=== PATIENT | male | born 1940 | race Caucasian/White ===

== ENCOUNTER 2022-02-18 02:42 | Inpatient (IN) | payer MEDICARE, SELFPAY ==
[2022-02-18] VITALS (8 sets, daily range): BP systolic 114–156; BP diastolic 51–84; PULSE 89–143; RESP 18–20; TEMP 37.2; O2SAT 94–100; BMI 25.1; BMI 28.0
--- NOTE | 2022-02-18 | ECG_ITS ---
Test Reason : AFIB Blood Pressure : / mmHG Vent. Rate : 132 BPM Atrial Rate : 000 BPM P-R Int : 000 ms QRS Dur : 098 ms QT Int : 332 ms P-R-T Axes : 000 093 -28 degrees QTc Int : 491 ms Atrial fibrillation with rapid ventricular response Rightward axis Abnormal ECG No previous ECGs available Referred By: Generic ED Physician Electronically Signed By:CASTILLO CORONEL
--- NOTE | ~2022-02-18 | XR_ITS ---
EXAMINATION: XR CHEST CLINICAL INFORMATION: Leukocytosis COMPARISON: None TECHNIQUE: Frontal view of the chest was obtained. FINDINGS: Lungs clear. Heart and pulmonary vessels are normal. There is advanced degenerative change in the left shoulder joint. XR/XR chest 1V IMPRESSION: No acute findings.
--- NOTE | ~2022-02-18 | CT_ITS ---
EXAMINATION: CT ABDOMEN AND PELVIS WITHOUT CONTRAST CLINICAL INFORMATION: Abdominal distention. Large right groin mass. COMPARISON: None TECHNIQUE: Multidetector volumetric imaging was performed from the superior aspect of the liver through the pubic symphysis. Sagittal and coronal reformatted images were obtained on the technologist's workstation. This CT examination was performed using dose optimization techniques as appropriate, variously including the following: *Automated exposure control *Adjustment of mA and/or kV according to patient size (this includes techniques or standardized protocols for targeted exams where dose is matched to indication/reason for exam; i.e. extremities or head) *Use of iterative reconstruction technique DLP: 872 mGy-cm FINDINGS: LUNG BASES: Basilar atelectasis. The visualized cardiac structures are unremarkable. LIVER, GALLBLADDER, AND BILIARY TREE: The liver is normal in size, shape, and attenuation. Multiple hypoattenuating lesions are seen in the liver, the largest of which are consistent with cysts. No biliary ductal dilatation.. The gallbladder is unremarkable with no evidence of radiopaque gallstones, gallbladder wall thickening, or obvious pericholecystic inflammatory changes. PANCREAS: Mild atrophy with no focal abnormality. SPLEEN: Unremarkable. ADRENAL GLANDS: Unremarkable. KIDNEYS AND URETERS: The kidneys are normal in size, shape, and attenuation. No hydronephrosis, hydroureter, or calculi seen. No perinephric stranding. BLADDER: Distended with no gross abnormality. GASTROINTESTINAL TRACT: The stomach is unremarkable. There is mild gaseous distention of the small bowel throughout much of its course, leading up to the entry into a large right inguinal hernia. The bowel within the hernia sac is more normal in caliber, although there is wall thickening seen throughout significant portions of the small bowel. The cecum is also partially positioned within the hernia sac. Gas and stool throughout portions of the colon. Diverticulosis of the distal colon without diverticulitis. There is no free air. Small volume of free fluid in the pelvis with significant inflammatory changes and free fluid within the large hernia sac. ABDOMINAL WALL: There is a large right inguinal hernia containing significant portions of distal small bowel where there is inflammation and bowel wall thickening. LYMPH NODES: Normal. VASCULAR: Normal caliber aorta with moderate atherosclerotic calcification. PELVIC VISCERA: The prostate and seminal vesicles are unremarkable. OSSEOUS STRUCTURES: No acute or suspicious osseous abnormality. Degenerative changes throughout the spine. Degenerative changes of both hips. CT/CT abdomen pelvis wo con IMPRESSION: Large right inguinal hernia containing distal small bowel. Wall thickening of the bowel within the hernia sac with significant inflammation and free fluid, concerning for strangulation/incarceration. The small bowel proximal to entering the hernia is dilated, consistent with an associated obstruction. This critical result was discussed with Diomedes Corona MD by telephone at 02/18/2022 7:12 AM and it was ascertained that the content and urgency of the report was understood at the time of direct communication.
[2022-02-18 03:35] LABS: Basophils Percent Auto 0.2 % (0-2); Hematocrit 44.5 % (42.0-52.0); Hemoglobin 15.5 g/dl (14.0-18.0); Imm Gran Abs Auto 0.19 X10*3/uL (0.00-0.03); Imm Gran Pct Auto 0.8 % (0.0-0.4); Lymphocytes Percent Auto 4.4 % (20-40); MANUAL DIFF FLAG NO; Mean Corpuscular HGB Conc 34.8 g/dl (31.0-36.0); Mean Corpuscular Hemoglobin 30.5 pg (27.0-33.0); Mean Corpuscular Volume 87.6 fL (80.0-98.0); Monocytes Absolute Auto 0.8 X10*3/uL (0.1-1.2); Monocytes Percent Auto 3.3 % (2-11); Neutrophils Absolute Auto 21.2 x10*3/uL (2.0-8.3); Neutrophils Percent Auto 91.3 % (45-73); Platelet Count 244 X10*3/uL (160-400); Red Blood Count 5.08 X10*6/uL (4.60-5.80); Red Cell Distribution Width 12.7 % (11.0-16.0); SCAN SMEAR FLAG 1; White Blood Count 23.2 X10*3/uL (4.8-10.8)
[2022-02-18 03:42] LABS: INTERNATIONAL NORM RATIO 1.6 (0.9-1.1); Prothrombin Time 18.5 SEC (10.0-13.1)
[2022-02-18 03:48] LABS: COVID-19 Test Negative (Negative); IDNOW Serial# 16C4AD1C
[2022-02-18 03:57] LABS: Alanine Aminotransferase 11 U/L (0-40); Albumin Level 3.4 g/dL (3.5-5.0); Alkaline Phosphatase 61 U/L (39-117); Anion Gap 16 (12-20); Aspartate Amino Transferase 18 U/L (5-37); Bilirubin Total 2.6 mg/dL (0.0-1.0); Blood Urea Nitrogen 14 mg/dL (9-16); Carbon Dioxide 25 mmol/L (22-29); Chloride 98 mmol/L (96-108); Creatinine Clr Calc Pharmacy 55.5; Estimated Glomerular Filt Rate > 60; Glucose Random 123 mg/dL (60-115); Lipase 14 U/L (8-78); Potassium 3.7 mmol/L (3.3-5.1); Sodium 135 mmol/L (135-145)
[2022-02-18 04:04] LABS: Troponin-I High Sensitivity < 3.5 ng/L (<3.5-35.0)
--- NOTE | 2022-02-18 04:57 | PC.NURSE ---
pt resting in bed, in no distress. at bedside
[2022-02-18] MEDS: dilTIAZem HCL 50 MG/10 ML VIAL 20 MG IVPUSH (06:18)
--- NOTE | 2022-02-18 06:22 | ED.ABDPAIN ---
HPI - Abdominal Pain General Chief Complaint: Abdominal Pain <Diomedes Corona MD - Last Filed: 02/18/22 08:28> Stated Complaint: gas and constipation <Diomedes Corona MD - Last Filed: 02/18/22 08:28> Time Seen by Provider: 02/18/22 03:09 <Diomedes Corona MD - Last Filed: 02/18/22 08:28> Source: patient and family (, Rebekah) <Diomedes Corona MD - Last Filed: 02/18/22 08:28> Mode of arrival: EMS <Diomedes Corona MD - Last Filed: 02/18/22 08:28> Limitations: no limitations <Diomedes Corona MD - Last Filed: 02/18/22 08:28> History of Present Illness HPI narrative: 81-year-old male who presents emergency department for evaluation of constipation x1 week, bloated abdomen, increased burping. The patient states that he has had 2-3 small bowel movement daily. States that he was feeling bloated and it he was belching frequently therefore he called an ambulance to come to the emergency department for evaluation. Paramedics found the patient to be in atrial fibrillation with an rapid ventricular rate of 160-184. He was given Cardizem 22.5 mg IV and normal saline 200 cc with improvement of his ventricular rate to 90-120 beats per minute. When the nursing staff undressed the patient, they noted a large right inguinal/scrotal mass with the penis retracted into the mass. When questioned the patient states that this mass has been there for over year and the confirms this as well. His states that she has been trying to get him to go to the doctors to evaluate this inguinal mass, but the patient has refused. The patient states that he has no medical problems and does not take any medications. He denied fever, chills, rhinorrhea, sore throat, cough, chest pain, shortness of breath, dyspnea on exertion, frequency, urgency or dysuria. <Diomedes Corona MD - Last Filed: 02/18/22 08:28> Related Data Allergies/Adverse Reactions: Allergies Allergy/AdvReac Type Severity Reaction Status Date / Time No Known Allergies Allergy Verified 02/18/22 03:10 <Diomedes Corona MD - Last Filed: 02/18/22 08:28> Review of Systems Review of Systems Yes all other systems are reviewed and are negative <Diomedes Corona MD - Last Filed: 02/18/22 08:28> [facility] Past Medical History [facility] Narrative: Past medical history: None. Past surgical history: None. Social history: He lives with his Rebekah was here in the emergency department with him, he denies tobacco, alcohol and drug use. <Diomedes Corona MD - Last Filed: 02/18/22 08:28> Social History Social History: Social History Advance Directives: No Advance Directives Information Provided: Yes <Diomedes Corona MD - Last Filed: 02/18/22 08:28> Physical Exam ED Vital Signs: Vital Signs - 24 hr 02/18/22 05:48 02/18/22 06:19 02/18/22 06:10 Temperature 98.9 F Pulse Rate 126 H 116 H 135 H Respiratory Rate 18 20 20 Blood Pressure 146/69 H Pulse Oximetry 96 96 Oxygen Delivery Method Room Air Room Air 02/18/22 06:17 02/18/22 08:00 Temperature Pulse Rate 143 H 120 H Respiratory Rate 19 18 Blood Pressure 156/84 H 114/51 L Pulse Oximetry 95 94 Oxygen Delivery Method Room Air Room Air BMI result Body Mass Index 25.1 <Diomedes Corona MD - Last Filed: 02/18/22 08:28> Vital Signs - 24 hr 02/18/22 05:48 02/18/22 06:19 02/18/22 06:10 Temperature 98.9 F Pulse Rate 126 H 116 H 135 H Respiratory Rate 18 20 20 Blood Pressure 146/69 H Pulse Oximetry 96 96 Oxygen Delivery Method Room Air Room Air 02/18/22 06:17 02/18/22 08:00 Temperature Pulse Rate 143 H 120 H Respiratory Rate 19 18 Blood Pressure 156/84 H 114/51 L Pulse Oximetry 95 94 Oxygen Delivery Method Room Air Room Air BMI result Body Mass Index 25.1 <Ethel Benavidez MD - Last Filed: 02/18/22 08:31> Const General: cooperative and no acute distress <Diomedes Corona MD - Last Filed: 02/18/22 08:28> Orientation/consciousness: oriented to person and oriented to place <MD Eileen Witt Last Filed: 02/18/22 08:28> Limitations: no limitations <MD Eileen Witt Last Filed: 02/18/22 08:28> HENMT Head: Yes normal to inspection, Yes normocephalic and Yes atraumatic <MD Eileen Witt Last Filed: 02/18/22 08:28> Ears: external ears normal <MD Eileen Witt Last Filed: 02/18/22 08:28> General nose exam: Normal external nose present <MD Eileen Witt Last Filed: 02/18/22 08:28> Face and sinus: Yes normal facial exam <MD Eileen Witt Last Filed: 02/18/22 08:28> Mouth: Normal oral and palatal mucosa present <MD Eileen Witt Last Filed: 02/18/22 08:28> Throat: Yes posterior oropharynx normal <MD Eileen Witt Last Filed: 02/18/22 08:28> Eyes General: appearance normal, both eyes and all related structures <MD Eileen Witt Last Filed: 02/18/22 08:28> Pupils: Equal, round and reactive pupils present <MD Eileen Witt Last Filed: 02/18/22 08:28> Neck Neck: Yes normal visual inspection, Yes no lymphadenopathy, Yes trachea midline and Yes supple <MD Eileen Witt Last Filed: 02/18/22 08:28> Chest Chest palpation & inspection: normal inspection of the chest and normal palpation of entire chest wall <MD Eileen Witt Last Filed: 02/18/22 08:28> Resp Effort & Inspection: normal respiratory effort and able to speak in complete sentences <MD Eileen Witt Last Filed: 02/18/22 08:28> Auscultation: clear to auscultation bilaterally <MD Eileen Witt Last Filed: 02/18/22 08:28> Cardio Rate: tachycardic <Diomedes Corona MD - Last Filed: 02/18/22 08:28> Rhythm: abnormal rhythm irregularly irregular <MD Eileen Witt Last Filed: 02/18/22 08:28> Heart sounds: S1 normal heart sound present, S2 normal heart sound present and no murmurs <Diomedes Corona MD - Last Filed: 02/18/22 08:28> GI Inspection: Yes normal to inspection <MD Eileen Witt Last Filed: 02/18/22 08:28> Palpation (GI): Soft to palpation, nontender and no guarding <MD Eileen Witt Last Filed: 02/18/22 08:28> Auscultation: normal bowel sounds <MD Eileen Witt Last Filed: 02/18/22 08:28> Other: The patient has a large right inguinal hernia versus a mass, the penis is retracted into the mass, there is erythema to this area which is slightly warm to the touch. <Diomedes Corona MD - Last Filed: 02/18/22 08:28> Skin General skin exam: no rashes or lesions noted <MD Eileen Witt Last Filed: 02/18/22 08:28> Neuro General: oriented to person and oriented to place <MD Eileen Witt Last Filed: 02/18/22 08:28> Cranial nerves: Yes CN's II-XII intact bilaterally and Yes Equal, round and reactive pupils present <MD Eileen Witt Last Filed: 02/18/22 08:28> Cognition (Neuro): normal cognition <MD Eileen Witt Last Filed: 02/18/22 08:28> Motor exam (neuro): 5/5 motor strength present throughout <MD Eileen Witt Last Filed: 02/18/22 08:28> Extrem General: Yes normal to inspection <MD Eileen Witt Last Filed: 02/18/22 08:28> Psych Appearance: grossly normal <MD Eielen Witt Last Filed: 02/18/22 08:28> Speech and movement: Normal speech and movement present <Diomedes Corona MD - Last Filed: 02/18/22 08:28> Affect: normal affect <Diomedes Corona MD - Last Filed: 02/18/22 08:28> Attitude: cooperative <Diomedes Corona MD - Last Filed: 02/18/22 08:28> Thought process: Normal thought process present <Diomedes Corona MD - Last Filed: 02/18/22 08:28> Thought content: Normal thought content present <Diomedes Corona MD - Last Filed: 02/18/22 08:28> Course Course Course Narrative: 81-year-old male who presented to the emergency department for evaluation of constipation x1 week, he is only having very small bowel movements daily, a bloated feeling to his abdomen with increased belching. The patient was found to be in atrial fibrillation with a rapid ventricular response from 160-180. He was given diltiazem 22.5 mg IV with some improvement of his rate. His examination revealed no abdominal tenderness but he does have a large right inguinal hernia versus mass with erythema in this area. Patient's ventricular rate remained elevated therefore he was ordered to get diltiazem 20 mg IV and he diltiazem drip. Laboratory evaluation was ordered. CT scan of the abdomen pelvis without IV contrast will be obtained to rule out bowel obstruction and to evaluate the right inguinal mass. 0635: Laboratory evaluation: WBC elevated 23,200 with 91% neutrophils and 4.4% lymphocytes. PT/INR elevated 18.5 and 1.6.BUN and creatinine were normal. Glucose was elevated 123. Calcium was low at 8.0. Total bili was elevated 2.6. Lipase was normal 14. TSH pending. COVID-19 was negative 0737: Patient's CT scan of the abdomen pelvis without IV contrast radiology reading is as follows: IMPRESSION: Large right inguinal hernia containing distal small bowel. Wall thickening of the bowel within the hernia sac with significant inflammation and free fluid, concerning for strangulation/incarceration. The small bowel proximal to entering the hernia is dilated, consistent with an associated obstruction.? ? This critical result was discussed with Diomedes Corona MD by telephone at 02/18/2022 7:12 AM and it was ascertained that the content and urgency of the report was understood at the time of direct communication. Dictated By: Darrin Blake MD 0826: I did discuss patient's presentation with the covering surgeon, Dr. Rosenbreg and he did come to the emergency department and evaluate the patient. He believes that this is a chronic hernia and does not require any acute intervention at this time. The patient was also discussed over tiger text with the covering hospitalist and with the covering upper inspector. At the end of my shift, the patient's care was turned over to my colleague, Dr. Ethel Benavidez. <Diomedes Corona MD - Last Filed: 02/18/22 08:28> Reevaluation(s) Reevaluation #1: Dr. Rosenberg is at bedside, evaluated the patient. Patient has no abdominal pain. The hernia is chronic, not incarcerated. At this time no surgical intervention is needed. I discussed the patient with Dr. Berry. Patient will be admitted by Dr. May Cardiology consult from Dr. Mcgowan pending. Patient is currently on a Cardizem drip, current heart rate 115, blood pressure 114/51, patient is asymptomatic. <Ethel Benavidez MD - Last Filed: 02/18/22 08:31> Time: 08:30 <Ethel Benavidez MD - Last Filed: 02/18/22 08:31> MDM - Abdominal Pain Lab Data Attestation: I reviewed the patient's lab results. <Diomedes Corona MD - Last Filed: 02/18/22 08:28> Result diagrams: : 02/18/22 03:28 02/18/22 03:28 <Diomedes Corona MD - Last Filed: 02/18/22 08:28> Labs: Lab Results 02/18/22 02/18/22 02/18/22 Range/Units 03:28 03:28 03:28 WBC 23.2 H (4.8-10.8) X10*3/uL RBC 5.08 (4.60-5.80) X10*6/uL Hgb 15.5 (14.0-18.0) g/dl Hct 44.5 (42.0-52.0) % MCV 87.6 (80.0-98.0) fL MCH 30.5 (27.0-33.0) pg MCHC 34.8 (31.0-36.0) g/dl RDW 12.7 (11.0-16.0) % Plt Count 244 (160-400) X10*3/uL MPV 10.0 (9.4-12.4) fL Immature Gran % (Auto) 0.8 H (0.0-0.4) % Neut % (Auto) 91.3 H (45-73) % Lymph % (Auto) 4.4 L (20-40) % [place] % (Auto) 3.3 (2-11) % Eos % (Auto) 0.0 (0-4) % Baso % (Auto) 0.2 (0-2) % Lymph # (Auto) 1.0 L (1.2-4.9) X10*3/uL [place] # (Auto) 0.8 (0.1-1.2) X10*3/uL Eos # (Auto) 0.0 (0.0-0.4) X10*3/uL Baso # (Auto) 0.0 (0.0-0.2) X10*3/uL Abs Immat Gran (auto) 0.19 H (0.00-0.03) X10*3/uL Absolute Neuts (auto) 21.2 H (2.0-8.3) x10*3/uL Absolute Nucleated RBC 0.000 (0.0-0.012) X10*3/uL Nucleated RBC % (auto) 0.0 (0.0-0.2) /100WBC PT (10.0-13.1) SEC INR (0.9-1.1) APTT (24.1-38.0) SEC Sodium 135 (135-145) mmol/L Potassium 3.7 (3.3-5.1) mmol/L Chloride 98 (96-108) mmol/L Carbon Dioxide 25 (22-29) mmol/L Anion Gap 16 (12-20) BUN 14 (9-16) mg/dL Creatinine 1.13 (0.5-1.4) mg/dL Estim Creat Clear Calc 55.5 Estimated GFR > 60 Random Glucose 123 H (60-115) mg/dL Lactic Acid (0.5-2.0) mmol/L Calcium 8.0 L (8.4-10.2) mg/dL Total Bilirubin 2.6 H (0.0-1.0) mg/dL AST 18 (5-37) U/L ALT 11 (0-40) U/L Alkaline Phosphatase 61 (39-117) U/L Troponin I High Sens < 3.5 (<3.5-35.0) ng/L Total Protein 6.0 L (6.5-8.0) g/dL Albumin 3.4 L (3.5-5.0) g/dL Lipase 14 (8-78) U/L TSH 0.78 (0.32-4.0) uIU/mL Urine Color Urine Appearance Urine pH (5.0-8.0) Ur Specific [place] (1.005-1.025) Urine Protein (NEG-TRACE) MG/DL Urine Glucose (UA) (NEG) MG/DL Urine Ketones (NEG) MG/DL Urine Blood (NEG) Urine Nitrite (NEG) Ur Leukocyte Esterase (NEG) COVID-19 (YUSEF) (Negative) COVID-19 Clin Com 02/18/22 02/18/22 02/18/22 Range/Units 03:28 03:28 06:32 WBC (4.8-10.8) X10*3/uL RBC (4.60-5.80) X10*6/uL Hgb (14.0-18.0) g/dl Hct (42.0-52.0) % MCV (80.0-98.0) fL MCH (27.0-33.0) pg MCHC (31.0-36.0) g/dl RDW (11.0-16.0) % Plt Count (160-400) X10*3/uL MPV (9.4-12.4) fL Immature Gran % (Auto) (0.0-0.4) % Neut % (Auto) (45-73) % Lymph % (Auto) (20-40) % [place] % (Auto) (2-11) % Eos % (Auto) (0-4) % Baso % (Auto) (0-2) % Lymph # (Auto) (1.2-4.9) X10*3/uL [place] # (Auto) (0.1-1.2) X10*3/uL Eos # (Auto) (0.0-0.4) X10*3/uL Baso # (Auto) (0.0-0.2) X10*3/uL Abs Immat Gran (auto) (0.00-0.03) X10*3/uL Absolute Neuts (auto) (2.0-8.3) x10*3/uL Absolute Nucleated RBC (0.0-0.012) X10*3/uL Nucleated RBC % (auto) (0.0-0.2) /100WBC PT 18.5 H (10.0-13.1) SEC INR 1.6 H (0.9-1.1) APTT 26.0 (24.1-38.0) SEC Sodium (135-145) mmol/L Potassium (3.3-5.1) mmol/L Chloride (96-108) mmol/L Carbon Dioxide (22-29) mmol/L Anion Gap (12-20) BUN (9-16) mg/dL Creatinine (0.5-1.4) mg/dL Estim Creat Clear Calc Estimated GFR Random Glucose (60-115) mg/dL Lactic Acid (0.5-2.0) mmol/L Calcium (8.4-10.2) mg/dL Total Bilirubin (0.0-1.0) mg/dL AST (5-37) U/L ALT (0-40) U/L Alkaline Phosphatase (39-117) U/L Troponin I High Sens (<3.5-35.0) ng/L Total Protein (6.5-8.0) g/dL Albumin (3.5-5.0) g/dL Lipase (8-78) U/L TSH (0.32-4.0) uIU/mL Urine Color YELLOW Urine Appearance CLEAR Urine pH 6.0 (5.0-8.0) Ur Specific [place] 1.020 (1.005-1.025) Urine Protein TRACE (NEG-TRACE) MG/DL Urine Glucose (UA) NEG (NEG) MG/DL Urine Ketones 15 (NEG) MG/DL Urine Blood NEG (NEG) Urine Nitrite NEG (NEG) Ur Leukocyte Esterase NEG (NEG) COVID-19 (YUSEF) Negative (Negative) COVID-19 Clin Com See Note 02/18/22 Range/Units 08:02 WBC (4.8-10.8) X10*3/uL RBC (4.60-5.80) X10*6/uL Hgb (14.0-18.0) g/dl Hct (42.0-52.0) % MCV (80.0-98.0) fL MCH (27.0-33.0) pg MCHC (31.0-36.0) g/dl RDW (11.0-16.0) % Plt Count (160-400) X10*3/uL MPV (9.4-12.4) fL Immature Gran % (Auto) (0.0-0.4) % Neut % (Auto) (45-73) % Lymph % (Auto) (20-40) % [place] % (Auto) (2-11) % Eos % (Auto) (0-4) % Baso % (Auto) (0-2) % Lymph # (Auto) (1.2-4.9) X10*3/uL [place] # (Auto) (0.1-1.2) X10*3/uL Eos # (Auto) (0.0-0.4) X10*3/uL Baso # (Auto) (0.0-0.2) X10*3/uL Abs Immat Gran (auto) (0.00-0.03) X10*3/uL Absolute Neuts (auto) (2.0-8.3) x10*3/uL Absolute Nucleated RBC (0.0-0.012) X10*3/uL Nucleated RBC % (auto) (0.0-0.2) /100WBC PT (10.0-13.1) SEC INR (0.9-1.1) APTT (24.1-38.0) SEC Sodium (135-145) mmol/L Potassium (3.3-5.1) mmol/L Chloride (96-108) mmol/L Carbon Dioxide (22-29) mmol/L Anion Gap (12-20) BUN (9-16) mg/dL Creatinine (0.5-1.4) mg/dL Estim Creat Clear Calc Estimated GFR Random Glucose (60-115) mg/dL Lactic Acid 1.0 (0.5-2.0) mmol/L Calcium (8.4-10.2) mg/dL Total Bilirubin (0.0-1.0) mg/dL AST (5-37) U/L ALT (0-40) U/L Alkaline Phosphatase (39-117) U/L Troponin I High Sens (<3.5-35.0) ng/L Total Protein (6.5-8.0) g/dL Albumin (3.5-5.0) g/dL Lipase (8-78) U/L TSH (0.32-4.0) uIU/mL Urine Color Urine Appearance Urine pH (5.0-8.0) Ur Specific [place] (1.005-1.025) Urine Protein (NEG-TRACE) MG/DL Urine Glucose (UA) (NEG) MG/DL Urine Ketones (NEG) MG/DL Urine Blood (NEG) Urine Nitrite (NEG) Ur Leukocyte Esterase (NEG) COVID-19 (YUSEF) (Negative) COVID-19 Clin Com <Diomedes Corona MD - Last Filed: 02/18/22 08:28> Lab Results 02/18/22 02/18/22 02/18/22 Range/Units 03:28 03:28 03:28 WBC 23.2 H (4.8-10.8) X10*3/uL RBC 5.08 (4.60-5.80) X10*6/uL Hgb 15.5 (14.0-18.0) g/dl Hct 44.5 (42.0-52.0) % MCV 87.6 (80.0-98.0) fL MCH 30.5 (27.0-33.0) pg MCHC 34.8 (31.0-36.0) g/dl RDW 12.7 (11.0-16.0) % Plt Count 244 (160-400) X10*3/uL MPV 10.0 (9.4-12.4) fL Immature Gran % (Auto) 0.8 H (0.0-0.4) % Neut % (Auto) 91.3 H (45-73) % Lymph % (Auto) 4.4 L (20-40) % [place] % (Auto) 3.3 (2-11) % Eos % (Auto) 0.0 (0-4) % Baso % (Auto) 0.2 (0-2) % Lymph # (Auto) 1.0 L (1.2-4.9) X10*3/uL [place] # (Auto) 0.8 (0.1-1.2) X10*3/uL Eos # (Auto) 0.0 (0.0-0.4) X10*3/uL Baso # (Auto) 0.0 (0.0-0.2) X10*3/uL Abs Immat Gran (auto) 0.19 H (0.00-0.03) X10*3/uL Absolute Neuts (auto) 21.2 H (2.0-8.3) x10*3/uL Absolute Nucleated RBC 0.000 (0.0-0.012) X10*3/uL Nucleated RBC % (auto) 0.0 (0.0-0.2) /100WBC PT (10.0-13.1) SEC INR (0.9-1.1) APTT (24.1-38.0) SEC Sodium 135 (135-145) mmol/L Potassium 3.7 (3.3-5.1) mmol/L Chloride 98 (96-108) mmol/L Carbon Dioxide 25 (22-29) mmol/L Anion Gap 16 (12-20) BUN 14 (9-16) mg/dL Creatinine 1.13 (0.5-1.4) mg/dL Estim Creat Clear Calc 55.5 Estimated GFR > 60 Random Glucose 123 H (60-115) mg/dL Lactic Acid (0.5-2.0) mmol/L Calcium 8.0 L (8.4-10.2) mg/dL Total Bilirubin 2.6 H (0.0-1.0) mg/dL AST 18 (5-37) U/L ALT 11 (0-40) U/L Alkaline Phosphatase 61 (39-117) U/L Troponin I High Sens < 3.5 (<3.5-35.0) ng/L Total Protein 6.0 L (6.5-8.0) g/dL Albumin 3.4 L (3.5-5.0) g/dL Lipase 14 (8-78) U/L TSH 0.78 (0.32-4.0) uIU/mL Urine Color Urine Appearance Urine pH (5.0-8.0) Ur Specific [place] (1.005-1.025) Urine Protein (NEG-TRACE) MG/DL Urine Glucose (UA) (NEG) MG/DL Urine Ketones (NEG) MG/DL Urine Blood (NEG) Urine Nitrite (NEG) Ur Leukocyte Esterase (NEG) COVID-19 (YUSEF) (Negative) COVID-19 Clin Com 02/18/22 02/18/22 02/18/22 Range/Units 03:28 03:28 06:32 WBC (4.8-10.8) X10*3/uL RBC (4.60-5.80) X10*6/uL Hgb (14.0-18.0) g/dl Hct (42.0-52.0) % MCV (80.0-98.0) fL MCH (27.0-33.0) pg MCHC (31.0-36.0) g/dl RDW (11.0-16.0) % Plt Count (160-400) X10*3/uL MPV (9.4-12.4) fL Immature Gran % (Auto) (0.0-0.4) % Neut % (Auto) (45-73) % Lymph % (Auto) (20-40) % [place] % (Auto) (2-11) % Eos % (Auto) (0-4) % Baso % (Auto) (0-2) % Lymph # (Auto) (1.2-4.9) X10*3/uL [place] # (Auto) (0.1-1.2) X10*3/uL Eos # (Auto) (0.0-0.4) X10*3/uL Baso # (Auto) (0.0-0.2) X10*3/uL Abs Immat Gran (auto) (0.00-0.03) X10*3/uL Absolute Neuts (auto) (2.0-8.3) x10*3/uL Absolute Nucleated RBC (0.0-0.012) X10*3/uL Nucleated RBC % (auto) (0.0-0.2) /100WBC PT 18.5 H (10.0-13.1) SEC INR 1.6 H (0.9-1.1) APTT 26.0 (24.1-38.0) SEC Sodium (135-145) mmol/L Potassium (3.3-5.1) mmol/L Chloride (96-108) mmol/L Carbon Dioxide (22-29) mmol/L Anion Gap (12-20) BUN (9-16) mg/dL Creatinine (0.5-1.4) mg/dL Estim Creat Clear Calc Estimated GFR Random Glucose (60-115) mg/dL Lactic Acid (0.5-2.0) mmol/L Calcium (8.4-10.2) mg/dL Total Bilirubin (0.0-1.0) mg/dL AST (5-37) U/L ALT (0-40) U/L Alkaline Phosphatase (39-117) U/L Troponin I High Sens (<3.5-35.0) ng/L Total Protein (6.5-8.0) g/dL Albumin (3.5-5.0) g/dL Lipase (8-78) U/L TSH (0.32-4.0) uIU/mL Urine Color YELLOW Urine Appearance CLEAR Urine pH 6.0 (5.0-8.0) Ur Specific [place] 1.020 (1.005-1.025) Urine Protein TRACE (NEG-TRACE) MG/DL Urine Glucose (UA) NEG (NEG) MG/DL Urine Ketones 15 (NEG) MG/DL Urine Blood NEG (NEG) Urine Nitrite NEG (NEG) Ur Leukocyte Esterase NEG (NEG) COVID-19 (YUSEF) Negative (Negative) COVID-19 Clin Com See Note 02/18/22 Range/Units 08:02 WBC (4.8-10.8) X10*3/uL RBC (4.60-5.80) X10*6/uL Hgb (14.0-18.0) g/dl Hct (42.0-52.0) % MCV (80.0-98.0) fL MCH (27.0-33.0) pg MCHC (31.0-36.0) g/dl RDW (11.0-16.0) % Plt Count (160-400) X10*3/uL MPV (9.4-12.4) fL Immature Gran % (Auto) (0.0-0.4) % Neut % (Auto) (45-73) % Lymph % (Auto) (20-40) % [place] % (Auto) (2-11) % Eos % (Auto) (0-4) % Baso % (Auto) (0-2) % Lymph # (Auto) (1.2-4.9) X10*3/uL [place] # (Auto) (0.1-1.2) X10*3/uL Eos # (Auto) (0.0-0.4) X10*3/uL Baso # (Auto) (0.0-0.2) X10*3/uL Abs Immat Gran (auto) (0.00-0.03) X10*3/uL Absolute Neuts (auto) (2.0-8.3) x10*3/uL Absolute Nucleated RBC (0.0-0.012) X10*3/uL Nucleated RBC % (auto) (0.0-0.2) /100WBC PT (10.0-13.1) SEC INR (0.9-1.1) APTT (24.1-38.0) SEC Sodium (135-145) mmol/L Potassium (3.3-5.1) mmol/L Chloride (96-108) mmol/L Carbon Dioxide (22-29) mmol/L Anion Gap (12-20) BUN (9-16) mg/dL Creatinine (0.5-1.4) mg/dL Estim Creat Clear Calc Estimated GFR Random Glucose (60-115) mg/dL Lactic Acid 1.0 (0.5-2.0) mmol/L Calcium (8.4-10.2) mg/dL Total Bilirubin (0.0-1.0) mg/dL AST (5-37) U/L ALT (0-40) U/L Alkaline Phosphatase (39-117) U/L Troponin I High Sens (<3.5-35.0) ng/L Total Protein (6.5-8.0) g/dL Albumin (3.5-5.0) g/dL Lipase (8-78) U/L TSH (0.32-4.0) uIU/mL Urine Color Urine Appearance Urine pH (5.0-8.0) Ur Specific Pisek (1.005-1.025) Urine Protein (NEG-TRACE) MG/DL Urine Glucose (UA) (NEG) MG/DL Urine Ketones (NEG) MG/DL Urine Blood (NEG) Urine Nitrite (NEG) Ur Leukocyte Esterase (NEG) COVID-19 (YUSEF) (Negative) COVID-19 Clin Com <Ethel Benavidez MD - Last Filed: 02/18/22 08:31> ECG Data Attestation: I personally reviewed and interpreted this ECG as follows: <Diomedes Corona MD - Last Filed: 02/18/22 08:28> Interpretation: 0252: Atrial fibrillation with a ventricular rate of 132 beats per minute, inverted T-wave in lead 3, poor R-wave progression V1 through V2, no ST segment elevation her no ST segment depression, nonspecific T-wave abnormalities. <Diomedes Corona MD - Last Filed: 02/18/22 08:28> Discharge Plan Discharge Clinical Impression: Atrial fibrillation with rapid ventricular response, Right inguinal hernia <Diomedes Corona MD - Last Filed: 02/18/22 08:28> Patient Disposition: Admitted As Inpatient <Diomedes Corona MD - Last Filed: 02/18/22 08:28>
[2022-02-18 06:46] LABS: Appearance Urine CLEAR; Color Urine YELLOW; Glucose Urine UA NEG (NEG); Leukocyte Esterase Urine NEG (NEG); Nitrite Urine NEG (NEG); Urine Blood NEG (NEG); Urine Ketones 15 MG/DL (NEG); Urine Protein TRACE MG/DL (NEG-TRACE)
[2022-02-18 07:25] LABS: TSH reflex Free T4 0.78 uIU/mL (0.32-4.0)
[2022-02-18] MEDS: cefTRIAXone sodium 1 GM in 0.9 % Sodium Chloride 50 ML IV (08:04)
[2022-02-18] MEDS: dilTIAZem HCL 125 MG in 0.9 % Sodium Chloride 100 ML 10 MG IVCONT (08:05)
[2022-02-18] MEDS: Lactated Ringers 1,000 ML 999.99 ML IV (08:15)
--- NOTE | 2022-02-18 08:19 | PC.NURSE ---
Pt A&Ox3, no complaints of pain at this time, flat affect noted by this RN, , Rebekah at bedside, states pt has not been to a doctor in years, hernia has been present for at least one year. Pt is in rapid Afib in the 120'130's on the monitor, Dilt drip started by this RN. Medicated with antibiotics as per [facility] orders, fluids running at this time. Call carter within reach, surgery at bedside at this time. Will continue to monitor.
[2022-02-18 08:30] LABS: Troponin-I High Sensitivity < 3.5 ng/L (<3.5-35.0)
[2022-02-18] MEDS: Lactated Ringers 1,000 ML 150 ML IVCONT (09:25)
--- NOTE | 2022-02-18 09:32 | PM.CNCAR ---
History of Present Illness History of Present Illness Date of Service: 02/18/22 Chief complaint: gas and constipation Narrative: This is a cardiology consultation regarding atrial fibrillation. Patient actually came for constipation and abdominal bloating. He has had 2-3 small bowel movements daily. In this context, has been found to have inguinal hernia. There is a question of large inguinal hernia containing distal small bowel. However, according to surgery, Dr. Rosenberg, there is no need for any immediate surgical intervention at this time. While in the ER, he has been directed to have atrial fibrillation with rapid rate. Patient herself does not have any specific symptoms like angina or shortness of breath or palpitations or in fact anything cardiac related at all. He states that he does not have any history of coronary artery disease or myocardial infarction or cardiomyopathy. Otherwise fairly functional till a few days before hospitalization. Review of Systems Review of Systems: Yes all other systems are reviewed and are negative Constitutional: Constitutional: Reports as per HPI Eyes: Eyes: Reports as per HPI ENT: Reports as per HPI Cardiovascular: Cardiovascular: Reports as per HPI, Denies acrocyanosis, Denies cool extremities, Denies chest pain, Denies leg edema, Denies lightheadedness, Denies palpitations and Denies dyspnea Respiratory: Respiratory: Reports as per HPI, Reports no additional respiratory complaints and Denies dyspnea Gastrointestinal: Gastrointestinal: Reports as per HPI, Reports no additional gastrointestinal complaints and Reports other (constipation, bloating) Genitourinary: Genitourinary: Reports no additional male genitourinary complaints and Reports as per HPI Musculoskeletal: Musculoskeletal: Reports no additional musculoskeletal complaints and Reports as per HPI Integumentary/Breasts: Skin/Breast: Reports system reviewed and no additional complaints, except as docu Neurologic: Reports system reviewed and no additional complaints, except as documented and Reports as per HPI Psychiatric: Psychiatric: Reports no additional psychiatric complaints and Reports as per HPI Endocrine: Endocrine: Reports no additional endocrine complaints, Reports as per HPI and Denies palpitations Hematologic/Lymphatic: Hematologic/Lymphatic: Reports no additional hematologic/lymphatic complaints and Reports as per HPI Allergic/Immunologic: Allergic/Immunologic: Reports no additional allergic/immunologic complaints and Reports as per HPI [facility] Past Medical History Medical History (Updated 02/18/22 @ 09:38 by Isma Mcgowan MD) Right inguinal hernia Family History Family History (Updated 02/18/22 @ 09:39 by Isma Mcgowan MD) Mother Breast cancer Social History Social History (Updated 02/18/22 @ 09:38 by Isma Mcgowan MD) Alcohol intake: never Patient Tobacco Use Status: Never used Tobacco Advance Directives: No Advance Directives Information Provided: Yes Meds Allergies Allergy/AdvReac Type Severity Reaction Status Date / Time No Known Allergies Allergy Verified 02/18/22 03:10 Active Medications: Current Medications Diltiazem HCl 125 mg/ Sodium (Chloride) 125 mls @ 0 mls/hr IVCONT .Q0M BENNY; Protocol Last Admin: 02/18/22 08:05 Dose: 10 mg/hr, 10 mls/hr Lactated Ringer's (Lr) 1,000 mls @ 150 mls/hr IVCONT .Q6H40M BENNY Last Admin: 02/18/22 09:25 Dose: 150 mls/hr Home Medications Medication Instructions Recorded Confirmed Last Taken Type Beet Root 1 tab PO DAILY 02/18/22 02/18/22 Unknown History aspirin 81 mg chewable tablet 81 mg PO DAILY 02/18/22 02/18/22 Unknown History multivitamin 1 tab PO DAILY 02/18/22 02/18/22 Unknown History Physical Exam Vital Signs: Vital Signs: Last Vital Signs Temp 98.9 F 02/18/22 05:48 Pulse 120 H 02/18/22 08:00 Resp 18 02/18/22 08:00 BP 114/51 L 02/18/22 08:00 Pulse Ox 94 02/18/22 08:00 O2 Del Method 02/18/22 08:00 BMI result Body Mass Index 25.1 Const: General: comfortable and no acute distress Orientation/consciousness: patient oriented x3 HEENT: Other: Unremarkable Head: Yes normal to inspection Neck: Neck: Yes normal visual inspection Chest: Chest palpation & inspection: normal inspection of the chest Resp: Auscultation: clear to auscultation bilaterally Cardio: Palpation: normal PMI Heart sounds: S1 normal heart sound present, S2 normal heart sound present, no gallops, no murmurs and no rubs GI: Palpation (GI): Soft to palpation Back/Spine/Pelvis: Other: unremarkable Skin: General skin exam: no rashes or lesions noted Neuro: General: patient oriented x3 Extrem: General: Yes normal to inspection Psych: Mental Status: mental status grossly normal Objective Labs and Meds Result diagrams: 02/18/22 03:28 02/18/22 03:28 Lab results: Laboratory Results - last 24 hr 02/18/22 02/18/22 02/18/22 03:28 03:28 03:28 WBC 23.2 H RBC 5.08 Hgb 15.5 Hct 44.5 MCV 87.6 MCH 30.5 MCHC 34.8 RDW 12.7 Plt Count 244 MPV 10.0 Immature Gran % (Auto) 0.8 H Neut % (Auto) 91.3 H Lymph % (Auto) 4.4 L [place] % (Auto) 3.3 Eos % (Auto) 0.0 Baso % (Auto) 0.2 Lymph # (Auto) 1.0 L [place] # (Auto) 0.8 Eos # (Auto) 0.0 Baso # (Auto) 0.0 Abs Immat Gran (auto) 0.19 H Absolute Neuts (auto) 21.2 H Absolute Nucleated RBC 0.000 Nucleated RBC % (auto) 0.0 PT INR APTT Sodium 135 Potassium 3.7 Chloride 98 Carbon Dioxide 25 Anion Gap 16 BUN 14 Creatinine 1.13 Estim Creat Clear Calc 55.5 Estimated GFR > 60 Random Glucose 123 H Lactic Acid Calcium 8.0 L Total Bilirubin 2.6 H AST 18 ALT 11 Alkaline Phosphatase 61 Troponin I High Sens < 3.5 Total Protein 6.0 L Albumin 3.4 L Lipase 14 TSH 0.78 Urine Color Urine Appearance Urine pH Ur Specific [place] Urine Protein Urine Glucose (UA) Urine Ketones Urine Blood Urine Nitrite Ur Leukocyte Esterase COVID-19 (YUSEF) COVID-19 Clin Com 02/18/22 02/18/22 02/18/22 03:28 03:28 06:32 WBC RBC Hgb Hct MCV MCH MCHC RDW Plt Count MPV Immature Gran % (Auto) Neut % (Auto) Lymph % (Auto) [place] % (Auto) Eos % (Auto) Baso % (Auto) Lymph # (Auto) [place] # (Auto) Eos # (Auto) Baso # (Auto) Abs Immat Gran (auto) Absolute Neuts (auto) Absolute Nucleated RBC Nucleated RBC % (auto) PT 18.5 H INR 1.6 H APTT 26.0 Sodium Potassium Chloride Carbon Dioxide Anion Gap BUN Creatinine Estim Creat Clear Calc Estimated GFR Random Glucose Lactic Acid Calcium Total Bilirubin AST ALT Alkaline Phosphatase Troponin I High Sens Total Protein Albumin Lipase TSH Urine Color YELLOW Urine Appearance CLEAR Urine pH 6.0 Ur Specific [place] 1.020 Urine Protein TRACE Urine Glucose (UA) NEG Urine Ketones 15 Urine Blood NEG Urine Nitrite NEG Ur Leukocyte Esterase NEG COVID-19 (YUSEF) Negative COVID-19 Clin Com See Note 02/18/22 02/18/22 08:02 08:02 WBC RBC Hgb Hct MCV MCH MCHC RDW Plt Count MPV Immature Gran % (Auto) Neut % (Auto) Lymph % (Auto) [place] % (Auto) Eos % (Auto) Baso % (Auto) Lymph # (Auto) [place] # (Auto) Eos # (Auto) Baso # (Auto) Abs Immat Gran (auto) Absolute Neuts (auto) Absolute Nucleated RBC Nucleated RBC % (auto) PT INR APTT Sodium Potassium Chloride Carbon Dioxide Anion Gap BUN Creatinine Estim Creat Clear Calc Estimated GFR Random Glucose Lactic Acid 1.0 Calcium Total Bilirubin AST ALT Alkaline Phosphatase Troponin I High Sens < 3.5 Total Protein Albumin Lipase TSH Urine Color Urine Appearance Urine pH Ur Specific [place] Urine Protein Urine Glucose (UA) Urine Ketones Urine Blood Urine Nitrite Ur Leukocyte Esterase COVID-19 (YUSEF) COVID-19 Clin Com ECG Interpretation: EKG with atrial fibrillation at 01:32/Min. Nonspecific ST-T changes. Rightward axis. Imaging Radiologist's impression: Impressions Abdomen/Pelvis CT 02/18/22 06:50 IMPRESSION: Large right inguinal hernia containing distal small bowel. Wall thickening of the bowel within the hernia sac with significant inflammation and free fluid, concerning for strangulation/incarceration. The small bowel proximal to entering the hernia is dilated, consistent with an associated obstruction. This critical result was discussed with Diomedes Corona MD by telephone at 02/18/2022 7:12 AM and it was ascertained that the content and urgency of the report was understood at the time of direct communication. Assessment and Plan (1) Atrial fibrillation with rapid ventricular response: Status: Acute Continues to be in atrial fibrillation with rapid rate. We will start him on IV Cardizem drip and titrate doses to control the heart rate less than 100/Min. If he cannot control medically, may need PREM/cardioversion as well. IV heparin for the time being. Clinically, he does not have any obvious symptoms and also hemodynamically seems stable. When rate is better, we can get an echocardiogram. (2) Right inguinal hernia: Status: Acute Per Dr. Rosenberg, he does not need emergent surgery but may need surgery in the long run. Timing will need to be decided. Ideally heart rate should be much better controlled. Plan Discussed with ER physician as well as Dr. Rosenberg, . Procedures Date of Service Date of Service: 02/18/22
[2022-02-18] MEDS: Piperacillin Sodium/Tazobactam 4.5 GM in 0.9 % Sodium Chloride 100 ML IV (09:36)
--- NOTE | 2022-02-18 09:38 | PHA.MEDREC ---
Pharmacy Consult ? Medication Reconciliation Pharmacy has completed the medication reconciliation. Patient only take OTC medications. Reports it has been a few days since he has taken them. Sandy Blanco, KaiD
--- NOTE | 2022-02-18 11:16 | PM.CNGS ---
History of Present Illness Consult details Consult date: 02/18/22 Narrative: 81-year-old male referred for for a large right inguinal scrotal hernia. The patient says that he has chronic constipation and was feeling ?gassy? yesterday so he decided to come to the emergency room. He passes flatus. He denies any abdominal pain. He has had no vomiting He admits to having a hernia for about 15 years on the right side. This has been increasing in size for many years. He denies any changes with regards to the size or the appearance of the right inguinal scrotal hernia. He has not seen any doctor in over 15 years he says. He was noted to be new onset AFib in the ER. Review of Systems Constitutional: Constitutional: Denies chills and Denies fever(s) Cardiovascular: Cardiovascular: Denies chest pain, Denies dyspnea and Denies dyspnea on exertion Respiratory: Respiratory: Denies cough, Denies dyspnea and Denies dyspnea on exertion Gastrointestinal: Gastrointestinal: Denies hematochezia and Denies change in bowel habits Genitourinary: Genitourinary: Denies hematuria and Denies difficulty urinating Musculoskeletal: Musculoskeletal: Denies back pain and Denies limited range of motion Neurologic: Denies focal weakness and Denies convulsions Psychiatric: Psychiatric: Denies depression and Denies mood swings PMFSH Past Medical History Medical History Right inguinal hernia Family History Family History Mother Breast cancer Surgical History Surgical History (Updated 02/18/22 @ 13:26 by Tushar May MD) No pertinent past surgical history Social History Social History (Updated 02/18/22 @ 13:27 by Tushar May MD) Household Members: Family Housing: House Do you presently have visiting nurse or other home services: No Alcohol intake: never Patient Tobacco Use Status: Never used Tobacco service: No Current occupational status: retired Meds Allergies Allergy/AdvReac Type Severity Reaction Status Date / Time No Known Allergies Allergy Verified 02/18/22 03:10 Active Medications: Current Medications Heparin Sodium (Porcine) (Heparin Sodium,Porcine 5,000 Unit/Ml Vial) 3,600 unit 40 unit/kg (3600 unit) IVPUSH PROTOCOL BOLUS PRN; Protocol PRN Reason: 40 unit/kg - Heparin Protocol Heparin Sodium (Porcine) (Heparin Sodium,Porcine 5,000 Unit/Ml Vial) 7,300 unit 80 unit/kg (7300 unit) IVPUSH PROTOCOL BOLUS PRN; Protocol PRN Reason: 80 unit/kg - Heparin Protocol Diltiazem HCl 125 mg/ Sodium (Chloride) 125 mls @ 0 mls/hr IVCONT .Q0M BENNY; Protocol Last Admin: 02/18/22 08:05 Dose: 10 mg/hr, 10 mls/hr Lactated Ringer's (Lr) 1,000 mls @ 150 mls/hr IVCONT .Q6H40M BENNY Last Admin: 02/18/22 09:25 Dose: 150 mls/hr Heparin Sodium/Sodium Chloride () 25,000 unit in 250 mls @ 0 mls/hr IVCONT .Q0M BENNY; Protocol Home Medications Medication Instructions Recorded Confirmed Last Taken Type Beet Root 1 tab PO DAILY 02/18/22 02/18/22 Unknown History aspirin 81 mg chewable tablet 81 mg PO DAILY 02/18/22 02/18/22 Unknown History multivitamin 1 tab PO DAILY 02/18/22 02/18/22 Unknown History Physical Exam Vital Signs: Vital Signs: Last Vital Signs Temp 98.9 F 02/18/22 05:48 Pulse 120 H 02/18/22 08:00 Resp 18 02/18/22 08:00 BP 114/51 L 02/18/22 08:00 Pulse Ox 94 02/18/22 08:00 O2 Del Method 02/18/22 08:00 BMI result Body Mass Index 28.0 Const: Other: Denies any abdominal pain General: comfortable and no acute distress Orientation/consciousness: patient oriented x3 Neck: Neck: Yes no lymphadenopathy Resp: Auscultation: clear to auscultation bilaterally Cardio: Rhythm: regular rhythm GI: Other: Large right inguinal scrotal hernia, appears chronically incarcerated Palpation (GI): Soft to palpation, nontender and no guarding Neuro: General: patient oriented x3 Results Labs Result diagrams: 02/19/22 05:37 02/19/22 05:37 Labs: Abnormal lab results 02/18/22 02/18/22 02/18/22 Range/Units 03:28 03:28 03:28 WBC 23.2 H (4.8-10.8) X10*3/uL Immature Gran % (Auto) 0.8 H (0.0-0.4) % Neut % (Auto) 91.3 H (45-73) % Lymph % (Auto) 4.4 L (20-40) % Lymph # (Auto) 1.0 L (1.2-4.9) X10*3/uL Abs Immat Gran (auto) 0.19 H (0.00-0.03) X10*3/uL Absolute Neuts (auto) 21.2 H (2.0-8.3) x10*3/uL PT 18.5 H (10.0-13.1) SEC INR 1.6 H (0.9-1.1) Random Glucose 123 H (60-115) mg/dL Calcium 8.0 L (8.4-10.2) mg/dL Total Bilirubin 2.6 H (0.0-1.0) mg/dL Total Protein 6.0 L (6.5-8.0) g/dL Albumin 3.4 L (3.5-5.0) g/dL Short CBC 02/18/22 Range/Units 03:28 WBC 23.2 H (4.8-10.8) X10*3/uL Hgb 15.5 (14.0-18.0) g/dl Hct 44.5 (42.0-52.0) % Plt Count 244 (160-400) X10*3/uL BMP 02/18/22 03:28 Sodium 135 Potassium 3.7 Chloride 98 Carbon Dioxide 25 BUN 14 Creatinine 1.13 Calcium 8.0 L Liver Function 02/18/22 Range/Units 03:28 Total Bilirubin 2.6 H (0.0-1.0) mg/dL AST 18 (5-37) U/L ALT 11 (0-40) U/L Alkaline Phosphatase 61 (39-117) U/L Albumin 3.4 L (3.5-5.0) g/dL Urine 02/18/22 Range/Units 06:32 Urine Color YELLOW Urine Appearance CLEAR Urine pH 6.0 (5.0-8.0) Ur Specific [place] 1.020 (1.005-1.025) Urine Protein TRACE (NEG-TRACE) MG/DL Urine Glucose (UA) NEG (NEG) MG/DL All other labs normal. Assessment and Plan (1) Right inguinal hernia: Status: Acute He has a very large right inguinal scrotal hernia. This appears to be chronically incarcerated. I have reviewed his CAT scan with the radiologist. There was note of air distally past the hernia. There is some fluid within the hernia along with some mild thickening of the small bowel loops. However, there is no evidence of any acute ischemia. Furthermore, his exam is very benign. He does not have any tenderness on the hernia itself nor on the abdomen. He does not have any vomiting. At this point, appears that his hernia has been chronically incarcerated. A clinically, he does not seem to require any surgical intervention acutely. I would recommend continuing with cardiac workup at this point. He unfortunately has not seen any physician in 15 years. I will however follow along closely while he is in the hospital for serial exams. I would keep him NPO temporarily. He may have p.o. meds. He has count is elevated 23. I am uncertain as to the etiology at this point. He does not seem to present with signs or symptoms suggestive of bowel ischemia. Procedures Date of Service Date of Service: 02/18/22
[2022-02-18] MEDS: Heparin Sodium,Porcine/1/2NS 25,000 UNIT/250 ML IV.SOLN 10 UNIT IVCONT (11:32)
[2022-02-18 11:35] LABS: INTERNATIONAL NORM RATIO 2.2 (0.9-1.1); Prothrombin Time 25.6 SEC (10.0-13.1)
[2022-02-18] MEDS: Heparin Sodium,Porcine 5,000 UNIT/ML VIAL 4000 UNIT IVPUSH (11:35)
[2022-02-18 11:37] LABS: PTT Heparin Drip 27.5 SEC (53-77.9)
--- NOTE | 2022-02-18 12:14 | PM.IMHP ---
History of Present Illness Date of Service: 02/18/22 Chief Complaint: constipation This is an 81 year old male, who has not seen a medical provider for many years, who presents to the ED with complaints of constipation, abdominal distension and increasing belching of 1 weeks duration. The patient, who has a large hernia (states the current size is for at least 2-3 years), reports that he typically moves his bowels every 2-3 days. He denies any abdominal pain, nausea or vomiting. He reports incease in abdominal girth but denies pain. He denies groin pain. He denies fevers, chills or sick contacts. Paramedics found the patient in A. fib with RVR with rates in the 160-180 range; 22.5mg IV cardizem was given by EMS with rades improving to the 120s. This was sustained in the 120s+ range despite another IV push of cardizem 20mg. He was subsequently placed on cardizem drip. Also noted was a large inguinal mass, which CT revealed: Large right inguinal hernia containing distal small bowel. Wall thickening of the bowel within the hernia sac with significant inflammation and free fluid, concerning for strangulation/incarceration. The small bowel proximal to entering the hernia is dilated, consistent with an associated obstruction. He has been evaluated by the General surgical services and his hernia is not felt urgent/emergent in nature. Hence, he will be admitted under the medical services for management of his cardiac issues. Review of Systems Review of Systems: negative except HPI [facility] Medical History Right inguinal hernia Family History Mother Breast cancer Surgical History (Updated 02/18/22 @ 13:26 by Tushar May MD) No pertinent past surgical history Social History (Updated 02/18/22 @ 13:27 by Tushar May MD) Alcohol intake: never Patient Tobacco Use Status: Never used Tobacco Use of substances other than those prescribed or required for medical reasons: No Advance Directives: No Advance Directives Information Provided: Yes Meds Allergies Allergy/AdvReac Type Severity Reaction Status Date / Time No Known Allergies Allergy Verified 02/18/22 03:10 Active Medications: Current Medications Heparin Sodium (Porcine) (Heparin Sodium,Porcine 5,000 Unit/Ml Vial) 3,600 unit 40 unit/kg (3600 unit) IVPUSH PROTOCOL BOLUS PRN; Protocol PRN Reason: 40 unit/kg - Heparin Protocol Heparin Sodium (Porcine) (Heparin Sodium,Porcine 5,000 Unit/Ml Vial) 7,300 unit 80 unit/kg (7300 unit) IVPUSH PROTOCOL BOLUS PRN; Protocol PRN Reason: 80 unit/kg - Heparin Protocol Diltiazem HCl 125 mg/ Sodium (Chloride) 125 mls @ 0 mls/hr IVCONT .Q0M BENNY; Protocol Last Admin: 02/18/22 08:05 Dose: 10 mg/hr, 10 mls/hr Lactated Ringer's (Lr) 1,000 mls @ 150 mls/hr IVCONT .Q6H40M BENNY Last Admin: 02/18/22 09:25 Dose: 150 mls/hr Heparin Sodium/Sodium Chloride () 25,000 unit in 250 mls @ 0 mls/hr IVCONT .Q0M BENNY; Protocol Last Admin: 02/18/22 11:32 Dose: 10.97 units/kg/hr, 10 mls/hr Home Medications Medication Instructions Recorded Confirmed Last Taken Type Beet Root 1 tab PO DAILY 02/18/22 02/18/22 Unknown History aspirin 81 mg chewable tablet 81 mg PO DAILY 02/18/22 02/18/22 Unknown History multivitamin 1 tab PO DAILY 02/18/22 02/18/22 Unknown History Physical Exam Vital Signs and Narrative: Vital Signs: Last Vital Signs Temp 98.9 F 02/18/22 05:48 Pulse 95 02/18/22 11:45 Resp 20 02/18/22 11:45 BP 118/73 02/18/22 11:45 Pulse Ox 94 02/18/22 11:45 O2 Del Method 02/18/22 11:45 BMI result Body Mass Index 28.0 Const: Other: Constitutional - Awake and Alert, No apparent distress Eyes - PERRLA, EOMI Cardiovascular - IRR, rates in the low 100s on cardizem drip; no rales, no jvd, no LE edema Respiratory - Normal lung expansion, Normal respiratory effort, No respiratory distress, CTA bilaterally Gastrointestinal - large R inguinal/scrotal hernia which is not tender to palpation - No CVA tenderness Extremities - no calf tenderness bilaterally, no swelling Musculoskeletal - Normal inspection, normal ROM Skin - Warm/Dry Neurological - Alert & oriented x3, No focal deficit Psychological - Appropriate affect Results Labs CBC and Chem 7: 02/18/22 12:53 02/18/22 03:28 Labs: Laboratory Results - last 24 hr 02/18/22 02/18/22 02/18/22 03:28 03:28 03:28 MCV 87.6 MCH 30.5 MCHC 34.8 RDW 12.7 Plt Count 244 MPV 10.0 Immature Gran % (Auto) 0.8 H Neut % (Auto) 91.3 H Lymph % (Auto) 4.4 L [place] % (Auto) 3.3 Eos % (Auto) 0.0 Baso % (Auto) 0.2 Lymph # (Auto) 1.0 L [place] # (Auto) 0.8 Eos # (Auto) 0.0 Baso # (Auto) 0.0 Abs Immat Gran (auto) 0.19 H Absolute Neuts (auto) 21.2 H Absolute Nucleated RBC 0.000 Nucleated RBC % (auto) 0.0 PT 18.5 H INR 1.6 H APTT 26.0 aPTT Heparin Protocol Anion Gap 16 Estim Creat Clear Calc 55.5 Estimated GFR > 60 Random Glucose 123 H Lactic Acid Calcium 8.0 L Total Bilirubin 2.6 H AST 18 ALT 11 Alkaline Phosphatase 61 Total Protein 6.0 L Albumin 3.4 L Lipase 14 TSH 0.78 Urine Color Urine Appearance Urine pH Ur Specific [place] Urine Protein Urine Glucose (UA) Urine Ketones Urine Blood Urine Nitrite Ur Leukocyte Esterase COVID-19 (YUSEF) COVID-19 Clin Com 02/18/22 02/18/22 02/18/22 03:28 06:32 08:02 MCV MCH MCHC RDW Plt Count MPV Immature Gran % (Auto) Neut % (Auto) Lymph % (Auto) [place] % (Auto) Eos % (Auto) Baso % (Auto) Lymph # (Auto) [place] # (Auto) Eos # (Auto) Baso # (Auto) Abs Immat Gran (auto) Absolute Neuts (auto) Absolute Nucleated RBC Nucleated RBC % (auto) PT INR APTT aPTT Heparin Protocol Anion Gap Estim Creat Clear Calc Estimated GFR Random Glucose Lactic Acid 1.0 Calcium Total Bilirubin AST ALT Alkaline Phosphatase Total Protein Albumin Lipase TSH Urine Color YELLOW Urine Appearance CLEAR Urine pH 6.0 Ur Specific [place] 1.020 Urine Protein TRACE Urine Glucose (UA) NEG Urine Ketones 15 Urine Blood NEG Urine Nitrite NEG Ur Leukocyte Esterase NEG COVID-19 (YUSEF) Negative COVID-19 Clin Com See Note 02/18/22 11:20 MCV MCH MCHC RDW Plt Count MPV Immature Gran % (Auto) Neut % (Auto) Lymph % (Auto) [place] % (Auto) Eos % (Auto) Baso % (Auto) Lymph # (Auto) [place] # (Auto) Eos # (Auto) Baso # (Auto) Abs Immat Gran (auto) Absolute Neuts (auto) Absolute Nucleated RBC Nucleated RBC % (auto) PT 25.6 H INR 2.2 H APTT aPTT Heparin Protocol 27.5 L Anion Gap Estim Creat Clear Calc Estimated GFR Random Glucose Lactic Acid Calcium Total Bilirubin AST ALT Alkaline Phosphatase Total Protein Albumin Lipase TSH Urine Color Urine Appearance Urine pH Ur Specific [place] Urine Protein Urine Glucose (UA) Urine Ketones Urine Blood Urine Nitrite Ur Leukocyte Esterase COVID-19 (YUSEF) COVID-19 Clin Com Imaging Radiologist's Impressions: Impressions Abdomen/Pelvis CT 02/18/22 06:50 IMPRESSION: Large right inguinal hernia containing distal small bowel. Wall thickening of the bowel within the hernia sac with significant inflammation and free fluid, concerning for strangulation/incarceration. The small bowel proximal to entering the hernia is dilated, consistent with an associated obstruction. This critical result was discussed with Diomedes Corona MD by telephone at 02/18/2022 7:12 AM and it was ascertained that the content and urgency of the report was understood at the time of direct communication. Assessment and Plan (1) Right inguinal hernia: Status: Acute (2) Atrial fibrillation with rapid ventricular response: Status: Acute Plan This is an 81 M who has not had a medical provider contact in many years and presents to the ED with abdominal symptoms. He is noted to be in A. Fib with RVR along with a large R inguinal hernia. He will be admitted for work up and treatment of both. 1. New onset A. Fib with RVR rates slowly improving on cardizem drip Will continue IV drip for now given #2 IV heparin and 2d echo Cardiology on board 2. Large R inguinal hernia evaluated by general surgery -- no acute surgical intervention in this moment, recs to work up cardiac issues first Input appreciated will keep NPO anticipate that he will ultimately require operative intervention 3. Leukocytosis significantly elevated, but no foci of infection check CXR check manual diff / path smear hold off antibiotics at this time Full Code DVT pptx, heparin drip Endorses as HCP In light of the patients: 1). new onset A. Fib with RVR which is requiring cardizem drip for rate control + planned further work up with 2d echo 2) Large inguinal hernia for I anticipiate will require operative repair after cardiac stabilization I anticipate a medically necessary, inpatient hospitalization, which is likely to span at least 2 midnights for treatment and monitoring of the above conditions. This cannot be accomplished in a less acute setting. Quality Stroke Does the patient have a stroke diagnosis?: No VTE Prior VTE?: No VTE Risk Level:: Medical - moderate - high VTE Device Contraindication: N/A - Device Ordered VTE Drug Contraindication: N/A - Med Ordered
--- NOTE | 2022-02-18 12:34 | CA_ITS ---
Transthoracic Echocardiogram Patient (Last, First, Middle): Mikey Mercado, Gender: Male Date of : 1940 Age: 81 Procedure Date: 02/18/2022 Procedure Type: Transthoracic Echocardiogram Location: ER Height: 180.34 cm Weight: 81.65 kg BSA: 2.02 m2 Heart Rate: bpm BP: 119 / 71 mmHg Telephone Sales Agent: MALINI Referring MD: Isma Mcgowan MD French Lecturer: Isma Mcgowan MD Symptoms: atrial fibrillation Study Quality: Fair ECG Rhythm: Atrial Fibrillation Conclusions: - The left ventricular systolic function is normal. The visually estimated ejection fraction is between 55-60%. - Moderately increased right ventricular cavity size. - No obvious valvular pathology seen on this study. Findings Left Ventricle Normal left ventricular cavity size. There is normal left ventricular wall thickness. The left ventricular systolic function is normal. The visually estimated ejection fraction is between 55-60%. There is no evidence of regional wall motion abnormalities. Diastolic function is indeterminate on the basis of available data. There is mild septal asymmetric hypertrophy. Right Ventricle Moderately increased right ventricular cavity size. There is low normal right ventricular systolic function. Atria The left atrium is normal in size. The right atrium is mildly dilated. Aortic Valve There is a normal trileaflet aortic valve. There is no aortic valve stenosis. There is no aortic valve regurgitation. Mitral Valve The mitral valve appears normal. There is trace mitral valve regurgitation. There is no mitral valve stenosis. Pulmonic Valve The pulmonic valve is likely normal. There is trace pulmonic valve regurgitation. Tricuspid Valve Normal tricuspid valve structure. There is trace tricuspid valve regurgitation. The pulmonary artery systolic pressure is normal. Great Vessels The aortic annulus, sinuses of valsalva, and asc aorta are normal in size. Pericardium/Pleural There is no evidence of pericardial effusion. There is a trivial pericardial effusion. Prior Study Comparison No prior study available for comparison. Recommendations, Care & Conclusions No obvious valvular pathology seen on this study. Measurements 2D Linear Measurements IVSd: 0.93 0.6-0.9/0.6-1.0 cm LVIDd: 4.69 3.9-5.3/4.2-5.9 cm LVIDd Index: 2.32 2.4-3.2/2.2-3.1 cm/m2 LVIDs: 2.91 2.0-3.6 cm LVPWd: 0.87 0.7-1.1 cm LA Diam: 4.50 2.7-3.8/3.0-4.0 cm LAIDs Index: 2.23 1.5-2.3 cm/m2 LV Mass: 176.87 67-162/88-224 g LV Mass Index: 87.56 43-95/49-115 g/m2 LVOT Diam: 2.60 3.0+(-)1.3 cm 2D Systolic Function EF 4C: 36.50 >55% EF 2C: 50.80 >55% Aortic Valve AoV Pk Simeon: 1.02 AoV Mn Simeon: 0.72 AoV VTI: 0.16 AoV Pk Grad: 4.00 Aov Mn Grad: 2.00 EULOGIO Cont.VTI: 4.40 LVOT LVOT Pk Simeon: 0.83 LVOT Mn Simeon: 0.55 LVOT VTI: 0.13 LVOT Pk Grad: 3.00 LVOT Mn Grad: 1.00 LVOT Diam: 2.60 LVOT Area: 5.31 Right Ventricle TAPSE (mm): 16.60 TVS' Simeon: 13.80 Tricuspid Valve TR Pk Simeon: 2.14 TR Pk Grad: 18.00 RVSP: 18.00 Great Vessels Aorta Sinus of Valsalva: 3.30 2.0-3.5 cm Ao Asc: 3.60 2.1-3.4 cm Pulmonary Valve PV Pk Simeon: 0.98 Peak PV Grad: 4.00 Updated in Other Vendor System with Status of Final Isma Mcgowan MD electronically signed on 02/19/2022 10:22:42 AM with status of Final
[2022-02-18 12:59] LABS: Hematocrit 41.6 % (42.0-52.0); Hemoglobin 14.4 g/dl (14.0-18.0); Mean Corpuscular HGB Conc 34.6 g/dl (31.0-36.0); Mean Corpuscular Hemoglobin 30.2 pg (27.0-33.0); Mean Corpuscular Volume 87.2 fL (80.0-98.0); Mean Platelet Volume 10.1 fL (9.4-12.4); Platelet Count 217 X10*3/uL (160-400); Red Blood Count 4.77 X10*6/uL (4.60-5.80); Red Cell Distribution Width 12.8 % (11.0-16.0)
[2022-02-18 13:05] LABS: White Blood Count 31.8 X10*3/uL (4.8-10.8)
[2022-02-18 13:46] LABS: Band Neutrophils Percent 9 % (3-5); Lymphocytes Absolute Manual 1.9 X10*3/uL (1.2-4.9); Lymphocytes Percent Manual 6 % (20-40); Neutrophils Absolute Manual 29.9 X10*3/uL (2.0-8.3); Neutrophils Percent Manual 85 % (45-73)
[2022-02-18 13:52] LABS: Platelet Estimate NORMAL (NORMAL); Platelet Morphology Comment NORMAL; RBC Morphology NORMAL; Toxic Vacuolation PRESENT
[2022-02-18] MEDS: Lactated Ringers 1,000 ML 80 ML IVCONT (15:43)
--- NOTE | 2022-02-18 16:13 | PM.EVENT ---
Event Note Date of Service: 02/18/22 Event Note: Seen on afternoon rounds He says he is comfortable Denies any abdominal pain No nausea or vomiting Heart rate better controlled Abdomen soft, no guarding, no rebound, no tenderness, Large chronically incarcerated right inguinal hernia, nontender Continue cardiac workup No acute surgical intervention at this time Will continue to follow closely
[2022-02-18 18:03] LABS: PTT Heparin Drip 40.9 SEC (53-77.9)
[2022-02-18] MEDS: Heparin Sodium,Porcine 5,000 UNIT/ML VIAL 3600 UNIT IVPUSH (18:55)
[2022-02-18 19:49] LABS: PTT Heparin Drip 86.8 SEC (53-77.9)
--- NOTE | 2022-02-18 21:38 | MHC.CM.PN ---
IMM 02/18. CM met with admitted patient with bed assignment pending. A&Ox4. No PCP. Has not seen a doctor in 15 years. Will need PCP referral at discharge. HCP at home. HCP/ Rebekah Mercado ([phone]). Vax/boosted x1/[employer]. No DME/services. Pt still drives. No . D/C plan is home without services. can transport, but does not drive at night. CM to follow for d/c needs.
[2022-02-19] VITALS (8 sets, daily range): BP systolic 123–156; BP diastolic 47–89; PULSE 96–122; RESP 14–19; TEMP 36.7–37.3; O2SAT 90–95
[2022-02-19 01:01] LABS: PTT Heparin Drip 44.4 SEC (53-77.9)
[2022-02-19] MEDS: 0.9 % Sodium Chloride Flush 3 ML SYRINGE IVFLUSH ×3 (01:07→15:27)
[2022-02-19] MEDS: Lactated Ringers 1,000 ML 80 ML IVCONT ×2 (05:35→19:19)
[2022-02-19 06:07] LABS: Hematocrit 39.2 % (42.0-52.0); Hemoglobin 13.5 g/dl (14.0-18.0); Mean Corpuscular HGB Conc 34.4 g/dl (31.0-36.0); Mean Corpuscular Hemoglobin 30.5 pg (27.0-33.0); Mean Corpuscular Volume 88.5 fL (80.0-98.0); Mean Platelet Volume 10.7 fL (9.4-12.4); Platelet Count 205 X10*3/uL (160-400); Red Blood Count 4.43 X10*6/uL (4.60-5.80); Red Cell Distribution Width 12.9 % (11.0-16.0); White Blood Count 20.7 X10*3/uL (4.8-10.8)
[2022-02-19 06:27] LABS: INTERNATIONAL NORM RATIO 1.7 (0.9-1.1); Prothrombin Time 20.2 SEC (10.0-13.1)
[2022-02-19 07:03] LABS: Anion Gap 14 (12-20); Blood Urea Nitrogen 15 mg/dL (9-16); Calcium 7.9 mg/dL (8.4-10.2); Carbon Dioxide 23 mmol/L (22-29); Chloride 101 mmol/L (96-108); Creatinine Clr Calc Pharmacy 78.2; Estimated Glomerular Filt Rate > 60; Glucose Random 110 mg/dL (60-115); Potassium 3.8 mmol/L (3.3-5.1); Sodium 134 mmol/L (135-145)
--- NOTE | 2022-02-19 07:36 | PC.NURSE ---
pt a/o x 3 no sob/laura noted skin pink warm dry speaks in full sentences. lungs - cta. heart rate 126, +bs x 4 quad, abd soft and non-tender. denies any pain/disc. pt aware of plan of care. heparin drip 14.97u/kg/hr. pt continues to npo
[2022-02-19 07:56] LABS: PTT Heparin Drip 46.1 SEC (53-77.9)
--- NOTE | 2022-02-19 08:08 | PC.NURSE ---
rn to rn report given to pam. pt aware of plan of care for transfer to [facility] [place].
[2022-02-19] MEDS: Heparin Sodium,Porcine/1/2NS 25,000 UNIT/250 ML IV.SOLN 15.47 UNIT IVCONT ×2 (08:22→08:53)
[2022-02-19] MEDS: Heparin Sodium,Porcine 5,000 UNIT/ML VIAL 3600 UNIT IVPUSH ×2 (08:27→15:24)
--- NOTE | 2022-02-19 08:39 | PM.PNGS ---
Subjective Subjective Date of Service: 02/19/22 Interval history: Says he feels well States he had a good night Says that this is the ?best? he has felt in a while Denies any abdominal pain Denies any pain on the hernia Physical Exam Vital Signs: Vital Signs: Last Vital Signs Temp 98.8 F 02/19/22 07:34 Pulse 113 H 02/19/22 07:34 Resp 19 02/19/22 07:34 BP 140/47 H 02/19/22 07:34 Pulse Ox 95 02/19/22 07:34 O2 Del Method 02/19/22 07:34 BMI result Body Mass Index 28.0 Const: General: comfortable and no acute distress Resp: Effort & Inspection: normal respiratory effort Cardio: Rate: regular rate GI: Other: Large right inguinal chronically incarcerated hernia Palpation (GI): Soft to palpation, not firm, nontender and no guarding Objective Data Active Medications Acetaminophen (Acetaminophen 325 Mg Tablet) 650 mg PO Q6H PRN PRN Reason: Pain, Mild (Pain Scale 1-3) Heparin Sodium (Porcine) (Heparin Sodium,Porcine 5,000 Unit/Ml Vial) 3,600 unit 40 unit/kg (3600 unit) IVPUSH PROTOCOL BOLUS PRN; Protocol PRN Reason: 40 unit/kg - Heparin Protocol Last Admin: 02/19/22 08:27 Dose: 3,600 unit Documented By: ABE Heparin Sodium (Porcine) (Heparin Sodium,Porcine 5,000 Unit/Ml Vial) 7,300 unit 80 unit/kg (7300 unit) IVPUSH PROTOCOL BOLUS PRN; Protocol PRN Reason: 80 unit/kg - Heparin Protocol Diltiazem HCl 125 mg/ Sodium (Chloride) 125 mls @ 0 mls/hr IVCONT .Q0M BENNY; Protocol Last Titration: 02/18/22 15:44 Dose: 0 mg/hr, 0 mls/hr Documented By: CRISTINA Lactated Ringer's (Lr) 1,000 mls @ 80 mls/hr IVCONT .[id number] BENNY Last Admin: 02/19/22 05:35 Dose: 80 mls/hr Documented By: KEYLA Heparin Sodium/Sodium Chloride () 25,000 unit in 250 mls @ 0 mls/hr IVCONT .Q0M BENNY; Protocol Last Admin: 02/19/22 08:22 Dose: 16.97 units/kg/hr, 15.47 mls/hr Documented By: ABE Co-signed By: EZEQUIEL Ondansetron HCl (Ondansetron Hcl 4 Mg/2 Ml Vial) 4 mg IVPUSH Q8H PRN PRN Reason: Nausea and Vomiting Sodium Chloride (0.9 % Sodium Chloride Flush 3 Ml Syringe) 3 ml IVFLUSH QSHIFT BENNY Last Admin: 02/19/22 07:41 Dose: 3 ml Documented By: ABE Labs CBC & Chem 7: 02/19/22 05:37 02/19/22 05:37 Labs: Laboratory Results - last 24 hr 02/18/22 02/18/22 02/18/22 11:20 12:53 17:49 MCV 87.2 MCH 30.2 MCHC 34.6 RDW 12.8 Plt Count 217 MPV 10.1 Absolute Nucleated RBC 0.000 Nucleated RBC % (auto) 0.0 Neutrophils % (Manual) 85 H Band Neutrophils % 9 H Lymphocytes % (Manual) 6 L Abs Neuts (Manual) 29.9 H Lymphocytes # (Manual) 1.9 Toxic Vacuolation PRESENT Platelet Estimate NORMAL Plt Morphology Comment NORMAL RBC Morphology NORMAL PT 25.6 H INR 2.2 H aPTT Heparin Protocol 27.5 L 40.9 L D Anion Gap Estim Creat Clear Calc Estimated GFR Random Glucose Calcium 02/18/22 02/19/22 02/19/22 19:33 00:47 05:37 MCV 88.5 MCH 30.5 MCHC 34.4 RDW 12.9 Plt Count 205 MPV 10.7 Absolute Nucleated RBC 0.000 Nucleated RBC % (auto) 0.0 Neutrophils % (Manual) Band Neutrophils % Lymphocytes % (Manual) Abs Neuts (Manual) Lymphocytes # (Manual) Toxic Vacuolation Platelet Estimate Plt Morphology Comment RBC Morphology PT INR aPTT Heparin Protocol 86.8 H D 44.4 L D Anion Gap Estim Creat Clear Calc Estimated GFR Random Glucose Calcium 02/19/22 02/19/22 02/19/22 05:37 05:37 07:40 MCV MCH MCHC RDW Plt Count MPV Absolute Nucleated RBC Nucleated RBC % (auto) Neutrophils % (Manual) Band Neutrophils % Lymphocytes % (Manual) Abs Neuts (Manual) Lymphocytes # (Manual) Toxic Vacuolation Platelet Estimate Plt Morphology Comment RBC Morphology PT 20.2 H INR 1.7 H aPTT Heparin Protocol 46.1 L Anion Gap 14 Estim Creat Clear Calc 78.2 Estimated GFR > 60 Random Glucose 110 Calcium 7.9 L Procedures Date of Service Date of Service: 02/19/22 Progress Note: A&P Assessment and plan (1) Right inguinal hernia: Status: Acute Assessment and Plan: Chronically incarcerated Exam benign No pain or tenderness Does not appear to require any acute intervention at this time Cardiac issues should be prioritized Will follow along Time Spent With Patient Time: Total time spent is greater than 50% in coordination of care (as documented) at patient's floor/unit and/or counseling patient: Quality Stroke Does the patient have a stroke diagnosis?: No VTE Prior VTE?: No VTE Risk Level:: Medical - moderate - high VTE Device Contraindication: N/A - Device Ordered VTE Drug Contraindication: N/A - Med Ordered
--- NOTE | 2022-02-19 11:18 | PM.PNCARD ---
Subjective Subjective Date of Service: 02/19/22 Interval history: He states that he feels well. No complaints like angina or shortness of breath or in fact anything cardiac related. He is resting in bed. Review of Systems Review of Systems Yes all other systems are reviewed and are negative Constitutional: Reports as per HPI Eyes: Reports as per HPI Reports as per HPI Cardiovascular: Reports as per HPI, Denies acrocyanosis, Denies cool extremities, Denies chest pain, Denies leg edema, Denies lightheadedness, Denies palpitations and Denies dyspnea Respiratory: Reports as per HPI, Reports no additional respiratory complaints and Denies dyspnea Gastrointestinal: Reports as per HPI and Reports no additional gastrointestinal complaints Genitourinary: Reports no additional male genitourinary complaints and Reports as per HPI Musculoskeletal: Reports no additional musculoskeletal complaints and Reports as per HPI Skin/Breast: Reports system reviewed and no additional complaints, except as docu Reports system reviewed and no additional complaints, except as documented and Reports as per HPI Psychiatric: Reports no additional psychiatric complaints and Reports as per HPI Endocrine: Reports no additional endocrine complaints, Reports as per HPI and Denies palpitations Hematologic/Lymphatic: Reports no additional hematologic/lymphatic complaints and Reports as per HPI Allergic/Immunologic: Reports no additional allergic/immunologic complaints and Reports as per HPI Physical Exam Vital Signs: Last Vital Signs Temp 98.0 F 02/19/22 08:43 Pulse 116 H 02/19/22 08:43 Resp 18 02/19/22 08:43 BP 156/80 H 02/19/22 08:43 Pulse Ox 95 02/19/22 08:43 O2 Del Method 02/19/22 08:43 BMI result Body Mass Index 28.0 Const General: comfortable and no acute distress Orientation/consciousness: patient oriented x3 HEENT Other: Unremarkable Head: Yes normal to inspection Neck Neck: Yes normal visual inspection Chest Chest palpation & inspection: normal inspection of the chest Resp Auscultation: clear to auscultation bilaterally Cardio Palpation: normal PMI Heart sounds: S1 normal heart sound present, S2 normal heart sound present, no gallops, no murmurs and no rubs GI Palpation (GI): Soft to palpation Back/Spine/Pelvis Other: unremarkable Skin General skin exam: no rashes or lesions noted Neuro General: patient oriented x3 Extrem General: Yes normal to inspection Psych Mental Status: mental status grossly normal Objective Labs and Meds Result diagrams: 02/19/22 05:37 02/19/22 05:37 Lab results: Laboratory Results - last 24 hr 02/18/22 02/18/22 02/18/22 11:20 12:53 17:49 WBC 31.8 H* RBC 4.77 Hgb 14.4 Hct 41.6 L MCV 87.2 MCH 30.2 MCHC 34.6 RDW 12.8 Plt Count 217 MPV 10.1 Absolute Nucleated RBC 0.000 Nucleated RBC % (auto) 0.0 Neutrophils % (Manual) 85 H Band Neutrophils % 9 H Lymphocytes % (Manual) 6 L Abs Neuts (Manual) 29.9 H Lymphocytes # (Manual) 1.9 Toxic Vacuolation PRESENT Platelet Estimate NORMAL Plt Morphology Comment NORMAL RBC Morphology NORMAL PT 25.6 H INR 2.2 H aPTT Heparin Protocol 27.5 L 40.9 L D Sodium Potassium Chloride Carbon Dioxide Anion Gap BUN Creatinine Estim Creat Clear Calc Estimated GFR Random Glucose Calcium 02/18/22 02/19/22 02/19/22 19:33 00:47 05:37 WBC 20.7 H RBC 4.43 L Hgb 13.5 L Hct 39.2 L MCV 88.5 MCH 30.5 MCHC 34.4 RDW 12.9 Plt Count 205 MPV 10.7 Absolute Nucleated RBC 0.000 Nucleated RBC % (auto) 0.0 Neutrophils % (Manual) Band Neutrophils % Lymphocytes % (Manual) Abs Neuts (Manual) Lymphocytes # (Manual) Toxic Vacuolation Platelet Estimate Plt Morphology Comment RBC Morphology PT INR aPTT Heparin Protocol 86.8 H D 44.4 L D Sodium Potassium Chloride Carbon Dioxide Anion Gap BUN Creatinine Estim Creat Clear Calc Estimated GFR Random Glucose Calcium 02/19/22 02/19/22 02/19/22 05:37 05:37 07:40 WBC RBC Hgb Hct MCV MCH MCHC RDW Plt Count MPV Absolute Nucleated RBC Nucleated RBC % (auto) Neutrophils % (Manual) Band Neutrophils % Lymphocytes % (Manual) Abs Neuts (Manual) Lymphocytes # (Manual) Toxic Vacuolation Platelet Estimate Plt Morphology Comment RBC Morphology PT 20.2 H INR 1.7 H aPTT Heparin Protocol 46.1 L Sodium 134 L Potassium 3.8 Chloride 101 Carbon Dioxide 23 Anion Gap 14 BUN 15 Creatinine 0.87 Estim Creat Clear Calc 78.2 Estimated GFR > 60 Random Glucose 110 Calcium 7.9 L Imaging Radiologist's impression: Impressions Chest X-Ray 02/18/22 13:35 IMPRESSION: No acute findings. Progress Note: A&P Assessment and plan (1) Atrial fibrillation with rapid ventricular response: Status: Acute Assessment and Plan: Heart rate on telemetry is around 110/Min. Clinically does not have any symptoms. Still in atrial fibrillation. We can start him on oral diltiazem. Continue with IV heparin for now. Hopefully we can control the rate with just medication. If not may need PREM/cardioversion. He seems hemodynamically stable. Echocardiogram with preserved LVEF. If no surgery planned, then probably Eliquis in due course. (2) Right inguinal hernia: Status: Acute Assessment and Plan: Per Dr. Rosenberg, he does not need emergent surgery but may need surgery in the long run. Timing will need to be decided. Should be more stable from cardiac before surgery. Plan Discussed with Carolin Cadet. Time Spent With Patient Time: Total time spent is greater than 50% in coordination of care (as documented) at patient's floor/unit and/or counseling patient: 35min. Progress Note: Quality Stroke Does the patient have a stroke diagnosis?: No Procedures Date of Service Date of Service: 02/19/22
--- NOTE | 2022-02-19 12:23 | P.PNIM_ITS ---
Subjective Subjective Date of Service: 02/19/22 Interval History: seen and examined this morning Follow-up for AFib RVR Denies chest pain, palpitations, shortness of breath No abdominal pain, nausea, vomiting Review of Systems Review of Systems: Yes all other systems are reviewed and are negative Constitutional Constitutional: Denies chills and Denies fever(s) Cardiovascular Cardiovascular: Denies chest pain, Denies palpitations and Denies dyspnea Respiratory Respiratory: Denies cough and Denies dyspnea Gastrointestinal Gastrointestinal: Denies abdominal pain and Denies diarrhea Endocrine Endocrine: Denies palpitations Physical Exam Vital Signs: Vital Signs: Last Vital Signs Temp 98.4 F 02/19/22 11:15 Pulse 113 H 02/19/22 11:15 Resp 18 02/19/22 11:15 BP 139/89 02/19/22 11:15 Pulse Ox 95 02/19/22 11:15 O2 Del Method 02/19/22 11:15 BMI result Body Mass Index 28.0 Const: General: cooperative, comfortable, alert and awake Nutritional Appearance: average body habitus Orientation/consciousness: patient oriented x3 Resp: Effort & Inspection: normal respiratory effort and able to speak in complete sentences Auscultation: clear to auscultation bilaterally Cardio: Other: irregular Rate: tachycardic GI: Other: large right inguinal hernia abdomen soft, nondistended, nontender Neuro: General: patient oriented x3 Extrem: General: Yes no pedal edema Objective Data Active Medications Acetaminophen (Acetaminophen 325 Mg Tablet) 650 mg PO Q6H PRN PRN Reason: Pain, Mild (Pain Scale 1-3) Diltiazem HCl (Diltiazem Hcl 60 Mg Tablet) 60 mg PO Q6H BENNY; Protocol Heparin Sodium (Porcine) (Heparin Sodium,Porcine 5,000 Unit/Ml Vial) 3,600 unit 40 unit/kg (3600 unit) IVPUSH PROTOCOL BOLUS PRN; Protocol PRN Reason: 40 unit/kg - Heparin Protocol Last Admin: 02/19/22 08:27 Dose: 3,600 unit Documented By: ABE Heparin Sodium (Porcine) (Heparin Sodium,Porcine 5,000 Unit/Ml Vial) 7,300 unit 80 unit/kg (7300 unit) IVPUSH PROTOCOL BOLUS PRN; Protocol PRN Reason: 80 unit/kg - Heparin Protocol Diltiazem HCl 125 mg/ Sodium (Chloride) 125 mls @ 0 mls/hr IVCONT .Q0M [facility]; Protocol Last Titration: 02/18/22 15:44 Dose: 0 mg/hr, 0 mls/hr Documented By: HENRY-HARVEY Lactated Ringer's (Lr) 1,000 mls @ 80 mls/hr IVCONT .[id number] [facility] Last Admin: 02/19/22 05:35 Dose: 80 mls/hr Documented By: KEYLA Heparin Sodium/Sodium Chloride () 25,000 unit in 250 mls @ 0 mls/hr IVCONT .Q0M [facility]; Protocol Last Admin: 02/19/22 08:53 Dose: 16.97 units/kg/hr, 15.47 mls/hr Documented By: ALFREDO Co-signed By: DAVID Ondansetron HCl (Ondansetron Hcl 4 Mg/2 Ml Vial) 4 mg IVPUSH Q8H PRN PRN Reason: Nausea and Vomiting Sodium Chloride (0.9 % Sodium Chloride Flush 3 Ml Syringe) 3 ml IVFLUSH QSHIFT [facility] Last Admin: 02/19/22 07:41 Dose: 3 ml Documented By: ABE Labs CBC & Chem 7: 02/19/22 05:37 02/19/22 05:37 Labs: Laboratory Results - last 24 hr 02/18/22 02/18/22 02/18/22 12:53 17:49 19:33 MCV 87.2 MCH 30.2 MCHC 34.6 RDW 12.8 Plt Count 217 MPV 10.1 Absolute Nucleated RBC 0.000 Nucleated RBC % (auto) 0.0 Neutrophils % (Manual) 85 H Band Neutrophils % 9 H Lymphocytes % (Manual) 6 L Abs Neuts (Manual) 29.9 H Lymphocytes # (Manual) 1.9 Toxic Vacuolation PRESENT Platelet Estimate NORMAL Plt Morphology Comment NORMAL RBC Morphology NORMAL PT INR aPTT Heparin Protocol 40.9 L D 86.8 H D Anion Gap Estim Creat Clear Calc Estimated GFR Random Glucose Calcium 02/19/22 02/19/22 02/19/22 00:47 05:37 05:37 MCV 88.5 MCH 30.5 MCHC 34.4 RDW 12.9 Plt Count 205 MPV 10.7 Absolute Nucleated RBC 0.000 Nucleated RBC % (auto) 0.0 Neutrophils % (Manual) Band Neutrophils % Lymphocytes % (Manual) Abs Neuts (Manual) Lymphocytes # (Manual) Toxic Vacuolation Platelet Estimate Plt Morphology Comment RBC Morphology PT 20.2 H INR 1.7 H aPTT Heparin Protocol 44.4 L D Anion Gap Estim Creat Clear Calc Estimated GFR Random Glucose Calcium 02/19/22 02/19/22 05:37 07:40 MCV MCH MCHC RDW Plt Count MPV Absolute Nucleated RBC Nucleated RBC % (auto) Neutrophils % (Manual) Band Neutrophils % Lymphocytes % (Manual) Abs Neuts (Manual) Lymphocytes # (Manual) Toxic Vacuolation Platelet Estimate Plt Morphology Comment RBC Morphology PT INR aPTT Heparin Protocol 46.1 L Anion Gap 14 Estim Creat Clear Calc 78.2 Estimated GFR > 60 Random Glucose 110 Calcium 7.9 L Microbiology Microbiology Results: Microbiology 02/18/22 07:09 Blood Culture - Preliminary Blood - Venous No growth after 24 hours. 02/18/22 06:57 Blood Culture - Preliminary Blood - Venous No growth after 24 hours. Assessment and Plan (1) Atrial fibrillation with rapid ventricular response: Status: Acute (2) Right inguinal hernia: Status: Acute Plan This is an 81 M who has not had a medical provider contact in many years and presents to the ED with abdominal symptoms. He is noted to be in A. Fib with RVR along with a large R inguinal hernia. He will be admitted for work up and treatment of both. 1. New onset A. Fib with RVR transition to p.o. Cardizem continue IV heparin echo obtained, preserved LVEF Cardiology on board 2. Large R inguinal hernia evaluated by general surgery -- no acute surgical intervention in this moment, recs to work up cardiac issues first Input appreciated will advanced clears anticipate that he will ultimately require operative intervention 3. Leukocytosis significantly elevated, but no foci of infection CXR, UA negative hold off antibiotics at this time blood cultures negative times 24 hours Full Code DVT pptx, heparin drip Endorses as HCP attending-Dr. May requires ongoing inpatient hospitalizations secondary to AFib with RVR in close observation secondary to large right inguinal hernia Quality Stroke Does the patient have a stroke diagnosis?: No VTE Prior VTE?: No VTE Risk Level:: Medical - moderate - high VTE Device Contraindication: N/A - Device Ordered VTE Drug Contraindication: N/A - Med Ordered
[2022-02-19] MEDS: dilTIAZem HCL 60 MG TABLET PO ×2 (13:51→19:19)
[2022-02-19 15:03] LABS: PTT Heparin Drip 48.1 SEC (53-77.9)
[2022-02-20] MEDS: Heparin Sodium,Porcine/1/2NS 25,000 UNIT/250 ML IV.SOLN 17.3 UNIT IVCONT ×2 (00:39→15:27)
[2022-02-20] MEDS: dilTIAZem HCL 60 MG TABLET PO ×2 (00:43→06:20)
[2022-02-20 03:26] LABS: Hematocrit 36.2 % (42.0-52.0); Hemoglobin 12.4 g/dl (14.0-18.0); Mean Corpuscular HGB Conc 34.3 g/dl (31.0-36.0); Mean Corpuscular Hemoglobin 30.4 pg (27.0-33.0); Mean Corpuscular Volume 88.7 fL (80.0-98.0); Mean Platelet Volume 10.3 fL (9.4-12.4); Platelet Count 209 X10*3/uL (160-400); Red Blood Count 4.08 X10*6/uL (4.60-5.80); White Blood Count 15.2 X10*3/uL (4.8-10.8)
[2022-02-20 03:48] LABS: PTT Heparin Drip 54.3 SEC (53-77.9)
[2022-02-20 04:00] VITALS: BP 132/73; PULSE 98; RESP 20; TEMP 36.2; O2SAT 92
[2022-02-20 04:16] LABS: Anion Gap 16 (12-20); Blood Urea Nitrogen 14 mg/dL (9-16); Calcium 7.6 mg/dL (8.4-10.2); Carbon Dioxide 24 mmol/L (22-29); Chloride 102 mmol/L (96-108); Estimated Glomerular Filt Rate > 60; Glucose Random 114 mg/dL (60-115); Potassium 3.5 mmol/L (3.3-5.1); Sodium 138 mmol/L (135-145)
[2022-02-20] MEDS: Lactated Ringers 1,000 ML 80 ML IVCONT (06:20)
[2022-02-20 08:00] VITALS: BP 146/74; PULSE 79; RESP 17; TEMP 36.7; O2SAT 79
[2022-02-20] MEDS: 0.9 % Sodium Chloride Flush 3 ML SYRINGE IVFLUSH ×2 (09:48→20:47)
--- NOTE | 2022-02-20 10:05 | PM.PNCARD ---
Subjective Subjective Date of Service: 02/20/22 Interval history: He states that he is doing well. No complaints like angina or shortness of breath or in fact anything cardiac related. Review of Systems Review of Systems Yes all other systems are reviewed and are negative Constitutional: Reports as per HPI Eyes: Reports as per HPI Reports as per HPI Cardiovascular: Reports as per HPI, Denies acrocyanosis, Denies cool extremities, Denies chest pain, Denies leg edema, Denies lightheadedness, Denies palpitations and Denies dyspnea Respiratory: Reports as per HPI, Reports no additional respiratory complaints and Denies dyspnea Gastrointestinal: Reports as per HPI and Reports no additional gastrointestinal complaints Genitourinary: Reports no additional male genitourinary complaints and Reports as per HPI Musculoskeletal: Reports no additional musculoskeletal complaints and Reports as per HPI Skin/Breast: Reports system reviewed and no additional complaints, except as docu Reports system reviewed and no additional complaints, except as documented and Reports as per HPI Psychiatric: Reports no additional psychiatric complaints and Reports as per HPI Endocrine: Reports no additional endocrine complaints, Reports as per HPI and Denies palpitations Hematologic/Lymphatic: Reports no additional hematologic/lymphatic complaints and Reports as per HPI Allergic/Immunologic: Reports no additional allergic/immunologic complaints and Reports as per HPI Physical Exam Vital Signs: Last Vital Signs Temp 98.0 F 02/20/22 08:00 Pulse 79 02/20/22 08:00 Resp 17 02/20/22 08:00 BP 146/74 H 02/20/22 08:00 Pulse Ox 79 L 02/20/22 08:00 O2 Del Method 02/20/22 08:00 BMI result Body Mass Index 28.0 Const General: comfortable and no acute distress Orientation/consciousness: patient oriented x3 HEENT Other: Unremarkable Head: Yes normal to inspection Neck Neck: Yes normal visual inspection Chest Chest palpation & inspection: normal inspection of the chest Resp Auscultation: clear to auscultation bilaterally Cardio Palpation: normal PMI Heart sounds: S1 normal heart sound present, S2 normal heart sound present, no gallops, no murmurs and no rubs GI Palpation (GI): Soft to palpation Back/Spine/Pelvis Other: unremarkable Skin General skin exam: no rashes or lesions noted Neuro General: patient oriented x3 Extrem General: Yes normal to inspection Psych Mental Status: mental status grossly normal Objective Labs and Meds Result diagrams: 02/20/22 03:20 02/20/22 03:20 Lab results: Laboratory Results - last 24 hr 02/19/22 02/19/22 02/20/22 14:33 21:21 03:20 WBC 15.2 H RBC 4.08 L Hgb 12.4 L Hct 36.2 L MCV 88.7 MCH 30.4 MCHC 34.3 RDW 13.0 Plt Count 209 MPV 10.3 Absolute Nucleated RBC 0.000 Nucleated RBC % (auto) 0.0 aPTT Heparin Protocol 48.1 L 61.0 D Sodium Potassium Chloride Carbon Dioxide Anion Gap BUN Creatinine Estim Creat Clear Calc Estimated GFR Random Glucose Calcium 02/20/22 02/20/22 03:20 03:20 WBC RBC Hgb Hct MCV MCH MCHC RDW Plt Count MPV Absolute Nucleated RBC Nucleated RBC % (auto) aPTT Heparin Protocol 54.3 Sodium 138 Potassium 3.5 Chloride 102 Carbon Dioxide 24 Anion Gap 16 BUN 14 Creatinine 0.81 Estim Creat Clear Calc 84.0 Estimated GFR > 60 Random Glucose 114 Calcium 7.6 L Progress Note: A&P Assessment and plan (1) Atrial fibrillation with rapid ventricular response: Status: Acute Assessment and Plan: On telemetry, ventricular rate seems better controlled. However he still in atrial fibrillation. He does not have any symptoms. Continue oral diltiazem but can change sustained release. If no contraindications to start Eliquis, can stop the heparin and start Eliquis rather. As he has absolutely no symptoms, will hold off on a PREM/cardioversion at this time. Otherwise, hemodynamically stable. Echocardiogram with LVEF of 55-60%. No significant valvular issues. (2) Essential hypertension: Status: Acute Assessment and Plan: Blood pressure seems to be on the higher side but not too high. May need further medications in due course. Diltiazem that he is on for atrial fibrillation should help. (3) Right inguinal hernia: Status: Acute Assessment and Plan: Per Dr. Rosenberg, he does not need emergent surgery but may need surgery in the long run. We will continue to follow up. Plan Discussed with Carolin Cadet. Time Spent With Patient Time: Total time spent is greater than 50% in coordination of care (as documented) at patient's floor/unit and/or counseling patient: 35min Progress Note: Quality Stroke Does the patient have a stroke diagnosis?: No Procedures Date of Service Date of Service: 02/20/22
[2022-02-20 11:25] VITALS: BP 135/66; PULSE 84; RESP 16; TEMP 36.8; O2SAT 93
--- NOTE | 2022-02-20 13:05 | P.PNIM_ITS ---
Subjective Subjective Date of Service: 02/20/22 Interval History: Seen and examined this morning Follow-up for AFib with RVR, heart rate has improved Denies chest pain, palpitations, shortness of breath No abdominal pain, passing gas no bowel movement Review of Systems Review of Systems: Yes all other systems are reviewed and are negative Constitutional Constitutional: Denies chills and Denies fever(s) Cardiovascular Cardiovascular: Denies chest pain and Denies palpitations Respiratory Respiratory: Denies cough Endocrine Endocrine: Denies palpitations Physical Exam Vital Signs: Vital Signs: Last Vital Signs Temp 98.2 F 02/20/22 11:25 Pulse 84 02/20/22 11:25 Resp 16 02/20/22 11:25 BP 135/66 02/20/22 11:25 Pulse Ox 93 02/20/22 11:25 O2 Del Method 02/20/22 11:25 BMI result Body Mass Index 28.0 Const: General: cooperative, comfortable, alert and awake Nutritional Appearance: average body habitus Orientation/consciousness: patient oriented x3 Resp: Effort & Inspection: normal respiratory effort and able to speak in complete sentences Auscultation: clear to auscultation bilaterally Cardio: Other: irregular GI: Other: large right inguinal hernia abdomen soft, nondistended, nontender Neuro: General: patient oriented x3 Extrem: General: Yes no pedal edema Objective Data Active Medications Acetaminophen (Acetaminophen 325 Mg Tablet) 650 mg PO Q6H PRN PRN Reason: Pain, Mild (Pain Scale 1-3) Apixaban (Apixaban 5 Mg Tablet) 5 mg PO BID BENNY Diltiazem HCl (Diltiazem Hcl Sr 60 Mg Cap.Er.12h) 120 mg PO BID BENNY; Protocol Heparin Sodium (Porcine) (Heparin Sodium,Porcine 5,000 Unit/Ml Vial) 3,600 unit 40 unit/kg (3600 unit) IVPUSH PROTOCOL BOLUS PRN; Protocol PRN Reason: 40 unit/kg - Heparin Protocol Last Admin: 02/19/22 15:24 Dose: 3,600 unit Documented By: JUJU Heparin Sodium (Porcine) (Heparin Sodium,Porcine 5,000 Unit/Ml Vial) 7,300 unit 80 unit/kg (7300 unit) IVPUSH PROTOCOL BOLUS PRN; Protocol PRN Reason: 80 unit/kg - Heparin Protocol Diltiazem HCl 125 mg/ Sodium (Chloride) 125 mls @ 0 mls/hr IVCONT .Q0M [facility]; Protocol Last Titration: 02/18/22 15:44 Dose: 0 mg/hr, 0 mls/hr Documented By: HENRY-RAMLILLY Heparin Sodium/Sodium Chloride () 25,000 unit in 250 mls @ 0 mls/hr IVCONT .Q0M [facility]; Protocol Stop: 02/20/22 18:59 Last Admin: 02/20/22 00:39 Dose: 18.97 units/kg/hr, 17.3 mls/hr Documented By: CEFERINO Co-signed By: RAOUL Ondansetron HCl (Ondansetron Hcl 4 Mg/2 Ml Vial) 4 mg IVPUSH Q8H PRN PRN Reason: Nausea and Vomiting Sodium Chloride (0.9 % Sodium Chloride Flush 3 Ml Syringe) [address] [facility] Last Admin: 02/20/22 09:48 Dose: 3 ml Documented By: JUSTINO Labs CBC & Chem 7: 02/20/22 03:20 02/20/22 03:20 Labs: Laboratory Results - last 24 hr 02/19/22 02/19/22 02/20/22 14:33 21:21 03:20 MCV 88.7 MCH 30.4 MCHC 34.3 RDW 13.0 Plt Count 209 MPV 10.3 Absolute Nucleated RBC 0.000 Nucleated RBC % (auto) 0.0 aPTT Heparin Protocol 48.1 L 61.0 D Anion Gap Estim Creat Clear Calc Estimated GFR Random Glucose Calcium 02/20/22 02/20/22 03:20 03:20 MCV MCH MCHC RDW Plt Count MPV Absolute Nucleated RBC Nucleated RBC % (auto) aPTT Heparin Protocol 54.3 Anion Gap 16 Estim Creat Clear Calc 84.0 Estimated GFR > 60 Random Glucose 114 Calcium 7.6 L Microbiology Microbiology Results: Microbiology 02/18/22 07:09 Blood Culture - Preliminary Blood - Venous No growth after 48 hours. 02/18/22 06:57 Blood Culture - Preliminary Blood - Venous No growth after 48 hours. Assessment and Plan (1) Essential hypertension: Status: Acute (2) Right inguinal hernia: Status: Acute (3) Atrial fibrillation with rapid ventricular response: Status: Acute Plan This is an 81 M who has not had a medical provider contact in many years and presents to the ED with abdominal symptoms. He is noted to be in A. Fib with RVR along with a large R inguinal hernia. He will be admitted for work up and treatment of both. 1. New onset A. Fib with RVR transition to p.o. Cardizem, will changed to sustained release continue IV heparin, transitioned to p.o. Eliquis this evening echo obtained, preserved LVEF Cardiology following - will need outpatient cardiology follow-up 2. Large R inguinal hernia evaluated by general surgery -- no acute surgical intervention during this hospitalization-likely as outpatient. Will require full cardiac workup prior to surgery Input appreciated will advance to full liquids - recommend to advance diet slowly per surgery 3. Leukocytosis significantly elevated, but no foci of infection- leukocytosis continues to trend down CXR, UA negative hold off antibiotics at this time blood cultures negative to date Full Code DVT pptx, heparin drip Endorses as HCP attending-Dr. May requires ongoing inpatient hospitalizations secondary to AFib with RVR in close observation secondary to large right inguinal hernia Quality Stroke Does the patient have a stroke diagnosis?: No VTE Prior VTE?: No VTE Risk Level:: Medical - moderate - high VTE Device Contraindication: N/A - Device Ordered VTE Drug Contraindication: N/A - Med Ordered
--- NOTE | 2022-02-20 14:20 | MHC.CM.PN ---
Per Rounds discussion, patient is Not yet medically cleared for discharge today r/t Afib with RVR in close observation secondary to large right inguinal hernia. CM will continue to follow for D/C needs.
--- NOTE | 2022-02-20 15:27 | PM.PNGS ---
Subjective Subjective Date of Service: 02/20/22 Interval history: Continues to feel well Denies abdominal pain Denies nausea vomiting Denies pain on the hernia Physical Exam Vital Signs: Vital Signs: Last Vital Signs Temp 98.2 F 02/20/22 11:25 Pulse 84 02/20/22 11:25 Resp 16 02/20/22 11:25 BP 135/66 02/20/22 11:25 Pulse Ox 93 02/20/22 11:25 O2 Del Method 02/20/22 11:25 BMI result Body Mass Index 28.0 Const: General: comfortable and no acute distress Resp: Effort & Inspection: normal respiratory effort Cardio: Rate: regular rate GI: Other: Large right inguinal scrotal hernia, nontender Palpation (GI): Soft to palpation, not firm, nontender and no guarding Objective Data Active Medications Acetaminophen (Acetaminophen 325 Mg Tablet) 650 mg PO Q6H PRN PRN Reason: Pain, Mild (Pain Scale 1-3) Apixaban (Apixaban 5 Mg Tablet) 5 mg PO BID [facility] Diltiazem HCl (Diltiazem Hcl Sr 60 Mg Cap.Er.12h) 120 mg PO BID [facility]; Protocol Heparin Sodium (Porcine) (Heparin Sodium,Porcine 5,000 Unit/Ml Vial) 3,600 unit 40 unit/kg (3600 unit) IVPUSH PROTOCOL BOLUS PRN; Protocol PRN Reason: 40 unit/kg - Heparin Protocol Last Admin: 02/19/22 15:24 Dose: 3,600 unit Documented By: JUJU Heparin Sodium (Porcine) (Heparin Sodium,Porcine 5,000 Unit/Ml Vial) 7,300 unit 80 unit/kg (7300 unit) IVPUSH PROTOCOL BOLUS PRN; Protocol PRN Reason: 80 unit/kg - Heparin Protocol Diltiazem HCl 125 mg/ Sodium (Chloride) 125 mls @ 0 mls/hr IVCONT .Q0M [facility]; Protocol Last Titration: 02/18/22 15:44 Dose: 0 mg/hr, 0 mls/hr Documented By: CRISTINA Heparin Sodium/Sodium Chloride () 25,000 unit in 250 mls @ 0 mls/hr IVCONT .Q0M [facility]; Protocol Stop: 02/20/22 18:59 Last Admin: 02/20/22 00:39 Dose: 18.97 units/kg/hr, 17.3 mls/hr Documented By: CEFERINO Co-signed By: RAOUL Ondansetron HCl (Ondansetron Hcl 4 Mg/2 Ml Vial) 4 mg IVPUSH Q8H PRN PRN Reason: Nausea and Vomiting Sodium Chloride (0.9 % Sodium Chloride Flush 3 Ml Syringe) 3 ml IVFLUSH QSHIFT [facility] Last Admin: 02/20/22 09:48 Dose: 3 ml Documented By: JUSTINO Labs CBC & Chem 7: 02/20/22 03:20 02/20/22 03:20 Labs: Laboratory Results - last 24 hr 02/19/22 02/20/22 02/20/22 21:21 03:20 03:20 MCV 88.7 MCH 30.4 MCHC 34.3 RDW 13.0 Plt Count 209 MPV 10.3 Absolute Nucleated RBC 0.000 Nucleated RBC % (auto) 0.0 aPTT Heparin Protocol 61.0 D Anion Gap 16 Estim Creat Clear Calc 84.0 Estimated GFR > 60 Random Glucose 114 Calcium 7.6 L 02/20/22 03:20 MCV MCH MCHC RDW Plt Count MPV Absolute Nucleated RBC Nucleated RBC % (auto) aPTT Heparin Protocol 54.3 Anion Gap Estim Creat Clear Calc Estimated GFR Random Glucose Calcium Microbiology Microbiology Results: Microbiology 02/18/22 07:09 Blood Culture - Preliminary Blood - Venous No growth after 48 hours. 02/18/22 06:57 Blood Culture - Preliminary Blood - Venous No growth after 48 hours. Procedures Date of Service Date of Service: 02/20/22 Progress Note: A&P Assessment and plan (1) Right inguinal hernia: Status: Acute Assessment and Plan: Chronically incarcerated No tenderness or pain Abdomen flat and soft Stable vital signs Looks well Diet as tolerated Patient has acute cardiac issues Will hold off on repair of his large inguinal scrotal hernia - plan to do electively Will follow patient Time Spent With Patient Time: Total time spent is greater than 50% in coordination of care (as documented) at patient's floor/unit and/or counseling patient: Quality Stroke Does the patient have a stroke diagnosis?: No VTE Prior VTE?: No VTE Risk Level:: Medical - moderate - high VTE Device Contraindication: N/A - Device Ordered VTE Drug Contraindication: N/A - Med Ordered
[2022-02-20 15:59] VITALS: BP 127/83; PULSE 92; RESP 16; TEMP 37; O2SAT 92
[2022-02-20 19:59] VITALS: BP 138/77; PULSE 93; RESP 18; TEMP 36.8; O2SAT 95
[2022-02-20] MEDS: dilTIAZem HCL SR 60 MG CAP.ER.12H 120 MG PO (20:46)
[2022-02-20] MEDS: Apixaban 5 MG TABLET PO (20:47)
[2022-02-21] VITALS (7 sets, daily range): BP systolic 136–155; BP diastolic 75–93; PULSE 68–98; RESP 18–20; TEMP 35.9–37.4; O2SAT 93–96
[2022-02-21 06:29] LABS: Hematocrit 37.7 % (42.0-52.0); Hemoglobin 12.6 g/dl (14.0-18.0); Mean Corpuscular HGB Conc 33.4 g/dl (31.0-36.0); Mean Corpuscular Volume 89.8 fL (80.0-98.0); Mean Platelet Volume 10.6 fL (9.4-12.4); Platelet Count 279 X10*3/uL (160-400); Red Cell Distribution Width 13.1 % (11.0-16.0); White Blood Count 12.8 X10*3/uL (4.8-10.8)
[2022-02-21 07:00] LABS: PTT Heparin Drip 28.2 SEC (53-77.9)
[2022-02-21] MEDS: 0.9 % Sodium Chloride Flush 3 ML SYRINGE IVFLUSH ×3 (10:34→19:46)
[2022-02-21] MEDS: dilTIAZem HCL SR 60 MG CAP.ER.12H 120 MG PO ×2 (10:34→19:46)
[2022-02-21] MEDS: polyethylene glycoL 3350 17 GM POWD.PACK PO (10:34)
[2022-02-21] MEDS: Apixaban 5 MG TABLET PO ×2 (10:35→19:46)
--- NOTE | 2022-02-21 12:45 | P.PNGS_ITS ---
Subjective Subjective Date of Service: 02/21/22 Interval history: feels well denies abdl pain passing flatus well Physical Exam Vital Signs: Vital Signs: Last Vital Signs Temp 98.2 F 02/21/22 11:49 Pulse 95 02/21/22 11:49 Resp 20 02/21/22 11:49 BP 141/75 H 02/21/22 11:49 Pulse Ox 93 02/21/22 11:49 O2 Del Method 02/21/22 11:49 BMI result Body Mass Index 28.0 Const: General: comfortable and no acute distress Resp: Effort & Inspection: normal respiratory effort Cardio: Rhythm: abnormal rhythm GI: Other: large RIH Palpation (GI): Soft to palpation, not firm, nontender and no guarding Objective Data Active Medications Acetaminophen (Acetaminophen 325 Mg Tablet) 650 mg PO Q6H PRN PRN Reason: Pain, Mild (Pain Scale 1-3) Apixaban (Apixaban 5 Mg Tablet) 5 mg PO BID [facility] Last Admin: 02/21/22 10:35 Dose: 5 mg Documented By: ALLYSON Diltiazem HCl (Diltiazem Hcl Sr 60 Mg Cap.Er.12h) 120 mg PO BID [facility]; Protocol Last Admin: 02/21/22 10:34 Dose: 120 mg Documented By: ALLYSON Docusate Sodium (Docusate Sodium 100 Mg Capsule) 100 mg PO BEDTIME PRN PRN Reason: constipation Ondansetron HCl (Ondansetron Hcl 4 Mg/2 Ml Vial) 4 mg IVPUSH Q8H PRN PRN Reason: Nausea and Vomiting Polyethylene Glycol (Polyethylene Glycol 3350 17 Gm Powd.Pack) 17 gm PO DAILY [facility] Last Admin: 02/21/22 10:34 Dose: 17 gm Documented By: ALLYSON Sodium Chloride (0.9 % Sodium Chloride Flush 3 Ml Syringe) 3 ml IVFLUSH QSHIFT [facility] Last Admin: 02/21/22 10:34 Dose: 3 ml Documented By: ALLYSON Labs CBC & Chem 7: 02/21/22 05:55 02/20/22 03:20 Labs: Laboratory Results - last 24 hr 02/21/22 02/21/22 05:55 05:55 MCV 89.8 MCH 30.0 MCHC 33.4 RDW 13.1 Plt Count 279 D MPV 10.6 Absolute Nucleated RBC 0.000 Nucleated RBC % (auto) 0.0 aPTT Heparin Protocol 28.2 L D Microbiology Microbiology Results: Microbiology 02/18/22 07:09 Blood Culture - Preliminary Blood - Venous No growth after 48 hours. 02/18/22 06:57 Blood Culture - Preliminary Blood - Venous No growth after 48 hours. Procedures Date of Service Date of Service: 02/21/22 Progress Note: A&P Assessment and plan (1) Right inguinal hernia: Status: Acute Assessment and Plan: chronically incarcerated inguinoscrotal hernia no urgent surgical intervention especially in light of new cardiac issues ok to do elective repair down the line when medically optimal Colace or Miralax for chronic constipation dw pt and at bedside Time Spent With Patient Time: Total time spent is greater than 50% in coordination of care (as documented) at patient's floor/unit and/or counseling patient: Quality Stroke Does the patient have a stroke diagnosis?: No VTE Prior VTE?: No VTE Risk Level:: Medical - moderate - high VTE Device Contraindication: N/A - Device Ordered VTE Drug Contraindication: N/A - Med Ordered
--- NOTE | 2022-02-21 13:21 | HO.PM.IMPN ---
Subjective Subjective Date of Service: 02/21/22 Interval History: seen and examined this morning follow up for Afib, inguinal hernia no chest pain, palpitations, shortness of breath No abdominal pain, nausea, vomiting Passing flatus, no bowel movement yet Review of Systems Review of Systems: Yes all other systems are reviewed and are negative Constitutional Constitutional: Denies body ache(s) and Denies fever(s) Cardiovascular Cardiovascular: Denies chest pain, Denies palpitations and Denies dyspnea Respiratory Respiratory: Denies cough and Denies dyspnea Gastrointestinal Gastrointestinal: Denies abdominal pain, Denies diarrhea, Denies nausea and Denies vomiting Endocrine Endocrine: Denies palpitations Physical Exam Vital Signs: Vital Signs: Last Vital Signs Temp 98.2 F 02/21/22 11:49 Pulse 95 02/21/22 11:49 Resp 20 02/21/22 11:49 BP 141/75 H 02/21/22 11:49 Pulse Ox 93 02/21/22 11:49 O2 Del Method 02/21/22 11:49 BMI result Body Mass Index 28.0 Const: General: cooperative, comfortable, alert and awake Nutritional Appearance: average body habitus Orientation/consciousness: patient oriented x3 Resp: Effort & Inspection: normal respiratory effort and able to speak in complete sentences Auscultation: clear to auscultation bilaterally Cardio: Other: irregular Rate: tachycardic GI: Other: large right inguinoscrotal hernia abdomen soft, nondistended, nontender Neuro: General: patient oriented x3 Extrem: General: Yes no pedal edema Objective Data Active Medications Acetaminophen (Acetaminophen 325 Mg Tablet) 650 mg PO Q6H PRN PRN Reason: Pain, Mild (Pain Scale 1-3) Apixaban (Apixaban 5 Mg Tablet) 5 mg PO BID [facility] OF [facility] Last Admin: 02/21/22 10:35 Dose: 5 mg Documented By: ALLYSON Diltiazem HCl (Diltiazem Hcl Sr 60 Mg Cap.Er.12h) 120 mg PO BID [facility] OF [facility]; Protocol Last Admin: 02/21/22 10:34 Dose: 120 mg Documented By: ALLYSON Docusate Sodium (Docusate Sodium 100 Mg Capsule) 100 mg PO BEDTIME PRN PRN Reason: constipation Ondansetron HCl (Ondansetron Hcl 4 Mg/2 Ml Vial) 4 mg IVPUSH Q8H PRN PRN Reason: Nausea and Vomiting Polyethylene Glycol (Polyethylene Glycol 3350 17 Gm Powd.Pack) 17 gm PO DAILY ON [facility] OF [facility] Last Admin: 02/21/22 10:34 Dose: 17 gm Documented By: ALLYSON Sodium Chloride (0.9 % Sodium Chloride Flush 3 Ml Syringe) 3 ml IVFLUSH QSHIFT ON [facility] OF [facility] Last Admin: 02/21/22 10:34 Dose: 3 ml Documented By: ALLYSON Labs CBC & Chem 7: 02/21/22 05:55 02/20/22 03:20 Labs: Laboratory Results - last 24 hr 02/21/22 02/21/22 05:55 05:55 MCV 89.8 MCH 30.0 MCHC 33.4 RDW 13.1 Plt Count 279 D MPV 10.6 Absolute Nucleated RBC 0.000 Nucleated RBC % (auto) 0.0 aPTT Heparin Protocol 28.2 L D Assessment and Plan (1) Right inguinal hernia: Status: Acute (2) Atrial fibrillation with rapid ventricular response: Status: Acute Plan This is an 81 M who has not had a medical provider contact in many years and presents to the ED with abdominal symptoms. He is noted to be in A. Fib with RVR along with a large R inguinal hernia. He will be admitted for work up and treatment of both. 1. New onset A. Fib with RVR Initially treated with Cardizem drip, transition to sustained release Cardizem IV heparin, transitioned to p.o. Eliquis echo obtained, preserved LVEF TSh wnl; trops flat Cardiology following - will need outpatient cardiology follow-up 2. Large R inguinoscrotal hernia - chronically incarcerated evaluated by general surgery -- no acute surgical intervention during this hospitalization-likely as outpatient. Will require full cardiac workup prior to surgery Input appreciated will advance to bland diet today passing gas, no BM yet. will start miralax, prn colace 3. Leukocytosis significantly elevated, but no foci of infection- white count continues to trend down CXR, UA negative hold off antibiotics at this time blood cultures negative to date Full Code DVT pptx, Eliquis Endorses as HCP attending-Dr. Arvizu requires ongoing inpatient hospitalizations secondary to AFib with RVR in close observation secondary to large right inguinal hernia Quality Stroke Does the patient have a stroke diagnosis?: No VTE Prior VTE?: No VTE Risk Level:: Medical - moderate - high VTE Device Contraindication: N/A - Device Ordered VTE Drug Contraindication: N/A - Med Ordered
[2022-02-21] MEDS: Docusate Sodium 100 MG CAPSULE PO (19:46)
[2022-02-22 03:57] VITALS: BP 144/85; PULSE 85; RESP 17; TEMP 37.1; O2SAT 94
[2022-02-22 08:00] VITALS: BP 168/88; PULSE 90; RESP 20; TEMP 36.7; O2SAT 92
--- NOTE | 2022-02-22 09:19 | PM.DS ---
DS: Providers Provider Date of Service: 02/22/22 Date of admission: 02/18/22 12:12 Date of discharge: 02/22/22 Primary care physician: None Physician Consults: 02/18/22 09:31 Consult to Cardiology Stat Consulting Provider: Isma Mcgowan Reason for consultation: a fib 02/20/22 14:31 Consult to General Surgery Routine Consulting Provider: Mikey Rosenberg Reason for consultation: Inguinal hernia Has provider been notified: No [facility]charging clinician: Carolin Cadet DS: Diagnosis Discharge Diagnosis (1) Right inguinal hernia: Status: Acute (2) Atrial fibrillation with rapid ventricular response: Status: Acute (3) Essential hypertension: Status: Acute DS: Summary Hospital Course Hospital Course: From H&P on day admission This is an 81 year old male, who has not seen a medical provider for many years, who presents to the ED with complaints of constipation, abdominal distension and increasing belching of 1 weeks duration. The patient, who has a large hernia (states the current size is for at least 2-3 years), reports that he typically moves his bowels every 2-3 days. He denies any abdominal pain, nausea or vomiting. He reports incease in abdominal girth but denies pain. He denies groin pain. He denies fevers, chills or sick contacts. Paramedics found the patient in A. fib with RVR with rates in the 160-180 range; 22.5mg IV cardizem was given by EMS with rades improving to the 120s. This was sustained in the 120s+ range despite another IV push of cardizem 20mg. He was subsequently placed on cardizem drip. Also noted was a large inguinal mass, which CT revealed: Large right inguinal hernia containing distal small bowel. Wall thickening of the bowel within the hernia sac with significant inflammation and free fluid, concerning for strangulation/incarceration. The small bowel proximal to entering the hernia is dilated, consistent with an associated obstruction. He has been evaluated by the General surgical services and his hernia is not felt urgent/emergent in nature. Hence, he will be admitted under the medical services for management of his cardiac issues New onset A. Fib with RVR. Initially treated with Cardizem drip, heart rate improved and he was transitioned to sustained release Cardizem. Initially anticoagulated with IV heparin, since no urgent surgery was needed he was transitioned to p.o. Eliquis. Risks of blood thinners were discussed. echo was obtained, preserved LVEF. TSH within normal limits, trops flat. Seen by Cardiology following - will need outpatient cardiology follow-up Large R inguinoscrotal hernia - chronically incarcerated. He was evaluated by general surgery -- no acute surgical intervention during this hospitalization-likely will need to be done as outpatient.? Will require full cardiac workup prior to surgery. Patient was initially made NPO, diet was slowly advanced and he is tolerating a regular diet and has remained pain-free. He has had bowel movement. Would recommend continuing daily MiraLax as needed for constipation. Leukocytosis. White count was significantly elevated at31.8 initially, but no foci of infection was found. White count has continued to trend down. CXR, UA were both negative and blood cultures have remained negative to date Time Spent with Patient Time attestation: Total time spent providing and/or coordinating discharge services: Discharge coordination time: Greater than 30 minutes Quality: Safe Use of Opioids Does Pt have an Active Cancer Diagnosis on the Problem List?: No Quality: Stroke Does the patient have a stroke diagnosis?: No Physical Exam Vital Signs: Vital Signs: Last Vital Signs Temp 98.0 F 02/22/22 08:00 Pulse 90 02/22/22 08:00 Resp 20 02/22/22 08:00 BP 168/88 H 02/22/22 08:00 Pulse Ox 92 02/22/22 08:00 O2 Del Method 02/22/22 08:00 BMI result Body Mass Index 28.0 Const: General: cooperative, comfortable, alert and awake Nutritional Appearance: average body habitus Orientation/consciousness: patient oriented x3 Resp: Effort & Inspection: normal respiratory effort and able to speak in complete sentences Auscultation: clear to auscultation bilaterally Cardio: Other: irregular GI: Other: large right inguinoscrotal hernia abdomen soft, nondistended, nontender Neuro: General: patient oriented x3 Extrem: General: Yes no pedal edema DS: Data Data Completed and Pending Labs on day of discharge: Preliminary micro results at discharge 02/18/22 07:09 Blood Culture - Preliminary Blood - Venous No growth after 48 hours. 02/18/22 06:57 Blood Culture - Preliminary Blood - Venous No growth after 48 hours. Discharge Plan Discharge Patient Disposition: Home, Self-Care Discharge Diagnosis: Afib RVR hernia Referrals: PRIMARY CARE [Other] - 1 Week (PLEASE CONNECT WITH A PRIMARY CARE PROVIDER OR VISIT AN URGENT CARE CLINIC FOR FOLLOW UP NEEDED/RECOMMENDED ) Mikey Rosenberg MD [Physician] - 1 Week Physician,None [Primary Care Provider] - 1 Week Isma Mcgowan MD [Physician] - 1 Week Discharge Medications: New Eliquis 5 mg Tablet 5 mg PO BID 30 Days Qty: 60 0RF diltiazem HCl 60 mg Capsule,Extended Release 12 Hr 120 mg PO BID 30 Days Qty: 120 0RF Protocol: Hold for SBP/HR < HOLD for SBP < : 90 HOLD for HR < : 60 polyethylene glycol 3350 17 gram Powder In Packet 17 g PO DAILY 30 Days Qty: 30 0RF Continued multivitamin Tablet 1 tab PO DAILY Beet Root 1 tab PO DAILY Discontinued aspirin 81 mg Tablet,Chewable 81 mg PO DAILY Discharge Orders: Discharge Order (Routine); Ordered 02/22/22 Ordered By: Carolin Cadet Activity on Discharge: As tolerated Stand Alone Forms: Patient Portal Discharge page Care Plan Goals: Control of blood pressure and atrial fibrillation Health Concerns: Atrial fibrillation Essential hypertension Chronically incarcerated Right inguinoscrotal hernia Plan of Treatment: Start taking diltiazem as prescribed to control your heart rate Start taking Eliquis as prescribed - this is a blood thinner. Monitor for signs of bleeding Call to schedule follow-up with canoe inspector Call to schedule follow-up with Dr. Rosenberg for further management and possible surgery to fix hernia Call to find PCP Assessment: see discharge summary Discharge Date/Time: 02/22/22 12:58
--- NOTE | 2022-02-22 09:56 | PM.PNGS ---
Subjective Subjective Date of Service: 02/22/22 Interval history: feels well denies abdl pain passing flatus tolerating regular diet Physical Exam Vital Signs: Vital Signs: Last Vital Signs Temp 98.0 F 02/22/22 08:00 Pulse 90 02/22/22 08:00 Resp 20 02/22/22 08:00 BP 168/88 H 02/22/22 08:00 Pulse Ox 92 02/22/22 08:00 O2 Del Method 02/22/22 08:00 BMI result Body Mass Index 28.0 Const: General: comfortable and no acute distress Resp: Effort & Inspection: normal respiratory effort Cardio: Rhythm: abnormal rhythm GI: Other: large chronically incarcerated inguinoscrotal hernia Palpation (GI): Soft to palpation, not firm, nontender and no guarding Objective Data Active Medications Acetaminophen (Acetaminophen 325 Mg Tablet) 650 mg PO Q6H PRN PRN Reason: Pain, Mild (Pain Scale 1-3) Apixaban (Apixaban 5 Mg Tablet) 5 mg PO BID [facility] Last Admin: 02/21/22 19:46 Dose: 5 mg Documented By: HECTOR Diltiazem HCl (Diltiazem Hcl Sr 60 Mg Cap.Er.12h) 120 mg PO BID [facility]; Protocol Last Admin: 02/21/22 19:46 Dose: 120 mg Documented By: HECTOR Docusate Sodium (Docusate Sodium 100 Mg Capsule) 100 mg PO BEDTIME PRN PRN Reason: constipation Last Admin: 02/21/22 19:46 Dose: 100 mg Documented By: HECTOR Ondansetron HCl (Ondansetron Hcl 4 Mg/2 Ml Vial) 4 mg IVPUSH Q8H PRN PRN Reason: Nausea and Vomiting Polyethylene Glycol (Polyethylene Glycol 3350 17 Gm Powd.Pack) 17 gm PO DAILY [facility] Last Admin: 02/21/22 10:34 Dose: 17 gm Documented By: ALLYSON Sodium Chloride (0.9 % Sodium Chloride Flush 3 Ml Syringe) 3 ml IVFLUSH QSHIFT [facility] Last Admin: 02/21/22 19:46 Dose: 3 ml Documented By: HECTOR Labs CBC & Chem 7: 02/21/22 05:55 02/20/22 03:20 Procedures Date of Service Date of Service: 07/31/22 Progress Note: A&P Assessment and plan (1) Right inguinal hernia: Status: Acute Assessment and Plan: doing well hernia chronically incarcerated has acute cardiac issues consider elective hernia repair down the line Time Spent With Patient Time: Total time spent is greater than 50% in coordination of care (as documented) at patient's floor/unit and/or counseling patient: Quality Stroke Does the patient have a stroke diagnosis?: No VTE Prior VTE?: No VTE Risk Level:: Medical - moderate - high VTE Device Contraindication: N/A - Device Ordered VTE Drug Contraindication: N/A - Med Ordered
[2022-02-22] MEDS: dilTIAZem HCL SR 60 MG CAP.ER.12H 120 MG PO (10:32)
[2022-02-22] MEDS: Apixaban 5 MG TABLET PO (10:38)
[2022-02-22] MEDS: 0.9 % Sodium Chloride Flush 3 ML SYRINGE IVFLUSH (10:38)
[2022-02-22] MEDS: polyethylene glycoL 3350 17 GM POWD.PACK PO (10:40)
[2022-02-22 12:00] VITALS: BP 140/80; PULSE 100; RESP 20; TEMP 36.7; O2SAT 95
== END 2022-02-22 12:58 | disposition home or self-care (01) | DRG 309 ==
LOC: HO.ED 08:31 → HO.EDOVER 12:19 → HO.IMC 02-19 07:32
PROVIDERS: Emergency Medicine Emergency Medical Services; Internal Medicine; Admitting Provider Family Medicine; Emergency Provider Emergency Medicine; Visit Provider Physician Assistant Medical
DX: I48.91 Unspecified atrial fibrillation (principal); K40.30 Unilateral inguinal hernia, with obstruction, without gangrene, not specified as recurrent; D72.829 Elevated white blood cell count, unspecified; K59.00 Constipation, unspecified; I10 Essential (primary) hypertension; Z20.822 Contact with and (suspected) exposure to COVID-19; Z79.899 Other long term (current) drug therapy
CPT/HCPCS: 36415; 71045; 74176; 80048; 80053; 81003; 83605; 83690; 84443; 84484; 85007; 85025; 85027; 85610; 85730; 87040; 87635; 93005; 93306; 96365; 96366; 96367; 96375; 96376; 99285; J0696; J2543

== ENCOUNTER → 2022-03-09 09:55 | Outpatient (BNVA) | payer MEDICARE, SELFPAY | PROVIDERS: PCP Hospitalist; Visit Provider Internal Medicine | DX: I48.91 Unspecified atrial fibrillation (principal); I10 Essential (primary) hypertension; K40.90 Unilateral inguinal hernia, without obstruction or gangrene, not specified as recurrent; Z09 Encounter for follow-up examination after completed treatment for conditions other than malignant neoplasm; Z79.899 Other long term (current) drug therapy | CPT/HCPCS: 93005; 99212 ==

== ENCOUNTER → 2022-03-12 09:49 | Outpatient (BNVA) | payer MEDICARE, SELFPAY | PROVIDERS: PCP Hospitalist; Referring Provider Hospitalist; Visit Provider Internal Medicine | DX: Z79.899 Other long term (current) drug therapy (principal) | CPT/HCPCS: 93005 ==

== ENCOUNTER → 2022-03-25 09:36 | Outpatient (BNVA) | payer MEDICARE, SELFPAY | PROVIDERS: PCP Hospitalist; Visit Provider Surgery | DX: K40.90 Unilateral inguinal hernia, without obstruction or gangrene, not specified as recurrent (principal); I48.19 Other persistent atrial fibrillation | CPT/HCPCS: 99212 ==

== ENCOUNTER → 2022-04-13 08:11 | Outpatient (REF) | payer MEDICARE, SELFPAY ==
--- NOTE | ~2022-04-13 | NM_ITS ---
Myocardial perfusion study Indication: Persistent atrial fibrillation to evaluate for myocardial ischemia Technique: The patient was brought in for a Lexiscan perfusion study on 04/13/2022. Patient performed low-level exercise and was injected 0.4 mg of Lexiscan intravenously. Within a minute of injection, 30 mCi of sestamibi was given intravenously. Images were obtained using the SPECT gamma camera interlaced with the gating device. Images were obtained in supine position. Resting perfusion study was performed on 04/14/2022. Patient was administered 30 mCi of sestamibi intravenously at rest. Images were then obtained in supine position. Images obtained with and without CT attenuation. Total DLP 78 mGy-cm. Images were processed with the software and compared side to side in short axis, horizontal long axis and vertical long axis views. Findings: The stress perfusion study showed non attenuated images show minimal thinning of the basal inferior wall of the LV myocardium. End of the LV myocardium is normally perfused. Attenuation corrected images show minimal reduced uptake in the apex of the LV myocardium.. The gated study shows normal LV systolic function with calculated LVEF of 72%. LV cavity is normal in size. The gated study shows normal systolic wall thickening and contraction of segments. Resting study shows no change in perfusion pattern compared to stress perfusion study. Gating at rest reveals normal systolic wall motion with ejection fraction at 65%. The findings are consistent with normal myocardial perfusion. NM/NM miko perf SPECT rest & str Impression: 1. Myocardial perfusion imaging study shows normal myocardial perfusion 2. Gated LVEF is 65% 3. Transient ischemic dilatation not present EKG is nondiagnostic for ischemia
--- NOTE | 2022-04-13 08:17 | CA_ITS ---
Acquisition Time: 2022-04-13 08:39:10 Total Exercise Time: 00:02:00 Test Indications: PERSISTANT AFIB Medications: Protocol: LEXISCAN Max HR: 155 BPM 111% of Pred: 139 BPM Max BP: 152/086 mmHG Max Work Load: 1.0 METS Pharmacological stress test with Lexiscan injection, while sitting and initially moving legs, then moving right arm, without anginal symptoms, with afib RVR in response to injection, with normotensive response to injection, with nondiagnostic EKG for ischemia. In recovery he was treated with Aminophylline 75mg IVP to reverse Lexiscan. Nuclear images pending. Test reviewed with Dr Mcgowan. Referred By: Isma Mcgowan Overread By: TRUNG SIM
== END ==
LOC: HO.CARD 08:11
PROVIDERS: PCP Hospitalist; Visit Provider Internal Medicine
DX: I48.19 Other persistent atrial fibrillation (principal)
CPT/HCPCS: 78452; 93017; A9500; J0280; J2785

== ENCOUNTER → 2022-04-17 06:42 | Outpatient (REF) | payer MEDICARE, SELFPAY ==
--- NOTE | 2022-04-17 06:58 | HM_ITS ---
Conclusion: 1. Patient was monitored for total period of 2 days and 20 hours 2. Baseline rhythm is atrial fibrillation with average heart rate of 63 beats per minute with lowest heart rate of 35 beats per minute, 23% time heart rate below 60 beats per minute, overall rate control appears adequate 3. Multiple pauses greater than 2.5 seconds, but no significant pauses greater than 5 seconds 4. Very rare PVCs noted 5. No patient reported events MTDD
== END ==
LOC: HO.CARD 06:42
PROVIDERS: PCP Hospitalist; Visit Provider Internal Medicine
DX: I48.19 Other persistent atrial fibrillation (principal)
CPT/HCPCS: 93242

== ENCOUNTER → 2022-04-22 10:04 | Outpatient (BNVA) | payer MEDICARE, SELFPAY | PROVIDERS: PCP Hospitalist; Referring Provider Hospitalist; Visit Provider Surgery | DX: K40.90 Unilateral inguinal hernia, without obstruction or gangrene, not specified as recurrent (principal) | CPT/HCPCS: 99212 ==

== ENCOUNTER → 2022-07-01 09:51 | Outpatient (BNVA) | payer MEDICARE, SELFPAY | PROVIDERS: PCP Hospitalist; Visit Provider Surgery | DX: K40.90 Unilateral inguinal hernia, without obstruction or gangrene, not specified as recurrent (principal); I48.19 Other persistent atrial fibrillation | CPT/HCPCS: 99212 ==

== ENCOUNTER 2022-07-03 13:32 | Inpatient (IN) | payer MEDICARE, SELFPAY ==
[2022-07-03] VITALS (7 sets, daily range): BP systolic 121–158; BP diastolic 62–84; PULSE 82–111; RESP 14–19; TEMP 36.4–36.6; O2SAT 96–98; BMI 23.1
--- NOTE | ~2022-07-03 | CT_ITS ---
EXAMINATION: CT ABDOMEN AND PELVIS WITH CONTRAST CLINICAL INFORMATION: Right inguinal hernia, rule out scrotal abscess. COMPARISON: CT scan the abdomen and pelvis dated 02/18/2022. TECHNIQUE: Multidetector volumetric images were obtained from the superior aspect of the liver through the pubic symphysis following administration 85 mL of Omnipaque 350 intravenous contrast. Sagittal and coronal reformatted images were obtained on the technologist's workstation. Oral contrast: No This CT examination was performed using dose optimization techniques as appropriate, variously including the following: *Automated exposure control *Adjustment of mA and/or kV according to patient size (this includes techniques or standardized protocols for targeted exams where dose is matched to indication/reason for exam; i.e. extremities or head) *Use of iterative reconstruction technique DLP: 853 mGy-cm FINDINGS: LUNG BASES: The visualized lung bases are unremarkable. LIVER, GALLBLADDER, AND BILIARY TREE: Multiple small hepatic low-attenuation foci are again seen without significant change. No gallbladder/biliary abnormality. PANCREAS: Unremarkable. SPLEEN: Unremarkable. ADRENAL GLANDS: Unremarkable. KIDNEYS AND URETERS: Tiny low-attenuation foci bilaterally, some of which are too small adequately characterize. A small cyst in the lower pole of the left kidney measures 1.1 cm (image 65, series 5). No nephrolithiasis or hydronephrosis. BLADDER: Unremarkable. GASTROINTESTINAL TRACT: The stomach and proximal small bowel unremarkable. Again seen is a large right inguinal hernia containing loops of distal ileum, terminal ileum, cecum and ascending colon. Mildly enlarged mesenteric lymph nodes are seen along the infiltrative changes. The distal colon and rectum are unremarkable. ABDOMINAL WALL: Large right inguinal hernia. External to the hernia is a large a large complex scrotal abscess the largest component is seen medially measuring approximately 15.0 x 6.8 x 9.0 cm (image 33, series 5; image 8, series 9). This extends inferiorly and laterally around the inferior margin of the hernia. A small component appears to extend laterally into the medial margin of the hernia measuring approximately 4.5 x 3.7 x 2.7 cm (image 38, series 5; image 33, series 7). LYMPH NODES: Mildly enlarged retroperitoneal lymph nodes. VASCULAR: Unremarkable. PELVIC VISCERA: Moderate prostatomegaly. OSSEOUS STRUCTURES: Mild lumbar levoscoliosis. No suspicious abnormality. CT/CT abdomen pelvis w IV con IMPRESSION: 1. Large right inguinal hernia containing loops of distal ileum, terminal ileum, cecum and ascending colon without evidence for obstruction. This represents mild interval increase compared to the previous study. Interval development of adjacent large scrotal abscess as detailed above. 2. Other incidental findings detailed above without significant interval change.
--- NOTE | 2022-07-03 14:12 | ED_ITS ---
HPI - Skin/Abscess/Foreign Bdy General Chief complaint: Skin/Abscess/Foreign Body Stated complaint: BLEEDING Time Seen by Provider: 07/03/22 14:02 Source: patient and EMS Mode of arrival: EMS Limitations: no limitations History of Present Illness HPI narrative: This is an 82-year-old male who comes from home with complaints of left scrotal bleeding which he noticed today. Patient has a past medical history of AFib and is anticoagulated on Eliquis, hypertension, known right inguinal hernia which per previous records has been chronically incarcerated presents with increasing swelling to the testicles, redness now with drainage since yesterday. Patient reports no urinary difficulty. No nausea, vomiting, diarrhea, fevers or chills. Related Data Home Medications Medication Instructions Recorded Confirmed multivitamin 1 tab PO DAILY 02/18/22 07/03/22 acetaminophen 325 mg tablet 650 mg PO Q6H PRN Pain 07/03/22 07/03/22 (Tylenol) polyethylene glycol 3350 17 gram 17 g PO DAILY PRN Constipation 07/03/22 07/03/22 oral powder packet Previous Rx's Medication Instructions Recorded metoprolol tartrate 25 mg tablet 25 mg PO BID 90 days #180 tabs 03/09/22 apixaban 5 mg tablet (Eliquis) 5 mg PO BID 30 days #60 tabs 03/20/22 diltiazem HCl 120 mg 360 mg PO DAILY 30 days #90 caps 05/05/22 capsule,extended release 24 hr Allergies Allergy/AdvReac Type Severity Reaction Status Date / Time No Known Allergies Allergy Verified 07/01/22 10:16 Review of Systems Review of Systems: Yes all other systems are reviewed and are negative Constitutional: Constitutional: Reports no additional constitutional complaints, Denies body ache(s), Denies chills, Denies fever(s), Denies headache(s) and Denies weakness Eyes: Eyes: Reports no additional eye complaints and Denies change in vision ENT: Reports system reviewed and no additional complaints, except as documented, Denies dizziness, Denies headache(s), Denies nasal congestion, Denies nasal discharge and Denies neck pain Cardiovascular: Cardiovascular: Reports no additional cardiovascular complaints, Denies chest pain, Denies leg edema and Denies dyspnea Respiratory: Respiratory: Reports no additional respiratory complaints, Denies cough and Denies dyspnea Gastrointestinal: Gastrointestinal: Reports no additional gastrointestinal complaints, Denies abdominal pain, Denies diarrhea, Denies nausea and Denies vomiting Genitourinary: Genitourinary: Denies dysuria, Denies flank pain, Reports scrotal swelling, Reports testicular pain, Denies urinary frequency, Denies urinary hesitancy, Denies urinary incontinence and Denies urinary urgency Musculoskeletal: Musculoskeletal: Reports no additional musculoskeletal complaints, Denies back pain, Denies arthralgias, Denies joint swelling, Denies neck pain, Denies numbness and Denies tingling Integumentary/Breasts: Skin/Breast: Reports system reviewed and no additional complaints, except as docu and Denies rash Neurologic: Reports system reviewed and no additional complaints, except as d ocumented, Denies Abnormal speech present, Denies dizziness, Denies headache(s), Denies numbness, Denies tingling and Denies weakness PMFSH Past Medical History Attestation statement: The following information was validated with the patient. Source: old records reviewed, obtained from family and nursing notes reviewed Medical History Persistent atrial fibrillation Right inguinal hernia Surgical History No pertinent past surgical history Family History Family History Mother Breast cancer Social History Social History Household Members: Family Housing: House Do you presently have visiting nurse or other home services: No Alcohol intake: never Patient Tobacco Use Status: Never used Tobacco e-Cigarette/Vaping Use: Never Used Advance Directives: No service: No Current occupational status: retired Physical Exam Vital Signs: Vital Signs: Last Vital Signs Temp 97.6 F 07/03/22 15:20 Pulse 84 07/03/22 18:00 Resp 18 07/03/22 18:00 BP 121/68 07/03/22 18:00 Pulse Ox 97 07/03/22 18:00 O2 Del Method 07/03/22 18:00 BMI result Body Mass Index 23.1 Const: General: cooperative, healthy appearing, comfortable and no acute distress Orientation/consciousness: patient oriented x3 Limitations: no limitations HEENT: Head: Yes normal to inspection Ears: hearing grossly normal bilaterally General nose exam: Normal external nose present Face and sinus: Yes normal facial exam Mouth: Normal oral and palatal mucosa present Throat: Yes posterior oropharynx normal Eyes: General: appearance normal, both eyes and all related structures Pupils: Equal, round and reactive pupils present Neck: Neck: Yes normal visual inspection Chest: Chest palpation & inspection: normal inspection of the chest Resp: Effort & Inspection: normal respiratory effort Auscultation: clear to auscultation bilaterally Cardio: Rate: regular rate Rhythm: regular rhythm Peripheral pulses: Pe ripheral pulses 2+ throughout GI: Inspection: Yes normal to inspection Palpation (GI): Soft to palpation and nontender Auscultation: normal bowel sounds : Other: Perineum is normal. There is some expressible drainage from the central wound which is bloody in appearance Back/Spine/Pelvis: Thoracic/Lumbar Spine: thoracic and lumbar spine normal to inspection Skin: General skin exam: no rashes or lesions noted Neuro: General: patient oriented x3, no focal motor deficits and normal sensation to monofilament Cranial nerves: Yes Equal, round and reactive pupils present Cognition (Neuro): normal cognition Speech: No Abnormal speech present Gait exam (Neuro): Normal gait present Motor exam (neuro): 5/5 motor strength present throughout Extrem: General: Yes normal to inspection Course Course Course Narrative: Labs show leukocytosis [address] shows Large right inguinal hernia. External to the hernia is a large a large complex scrotal abscess the largest component is seen medially measuring approximately 15.0 x 6.8 x 9.0 cm (image 33, series 5; image 8, series 9). This extends inferiorly and laterally around the inferior margin of the hernia. A small component appears to extend laterally into the medial margin of the hernia measuring approximately 4.5 x 3.7 x 2.7 cm (image 38, series 5; image 33, series 7). at 1548 infection was suspected antibiotics ordered. Anticipate admission. Will discuss with General surgery, Urology Patient able to void independently Reevaluation(s) Reevaluation #1: 1700-Call out to general surgery. Reevaluation #2: 1800-2nd call to general surgery . Spoke to Dr Soto who recommended speak to urology. Spoke to urology (Clarence) who recommends holding eliquis, keep NPO after midnight tonight, continue IV ABX. Will need general surgery consultation d/t inguinal hernia being close by. Requesting medicine admit. Call out to medicine to admit Spoke to Dr Webber-patient to be admitted at 7pm by Dr Clayton Medications Administered Generic Name Dose Route Start Last Admin Trade Name Freq PRN Reason Stop Dose Admin Vancomycin HCl 2,000 mg in 520 mls @ 260 mls/hr 07/03/22 17:33 07/03/22 18:07 Vancomycin/Ns IV 07/03/22 19:32 260 mls/hr ONCE ONE Administration Discontinued Medications Generic Name Dose Route Start Last Admin Trade Name Freq PRN Reason Stop Dose Admin Ceftriaxone Sodium 1 gm/ 50 mls @ 100 mls/hr 07/03/22 15:48 07/03/22 17:35 Sodium Chloride IV 07/03/22 16:17 Infused ONCE ONE Infusion Iohexol 100 ml 07/03/22 15:53 07/03/22 15:58 Iohexol 350 Mg/Ml 100 Ml Infus..Btl IV 07/03/22 15:54 85 ml ONCE ONE Administration Medical Decision Making Medical Decision Making MDM Narrative: 82-year-old male with a known right inguinal hernia that is been chronically incarcerated per previous note, AFib on Eliquis here with left-sided scrotal swelling, redness and drainage from the site since yesterday. On exam concern for abscess. No evidence of fourniers gangrene. Will check labs, UA, CT Differential Diagnoses: Differential diagnosis (Scrotal abscess, cellulitis) Discussion of management with other physician/healthcare provider/other source (e.g., hospitalist, outbound sales consultant, behavioral health): Discussion w/other physician/healthcare provider My interpretation is Lab Attestation: I reviewed the patient's lab results. Independent interpretation of EKG, rhythm strip, radiology study: Independent interp EKG,rhythm strip, radiology study I performed an independent interpretation of the: CT Scan (CT scan A/P-right inguinal hernia with large left scrotal abscess) My interpretation is Discussion of test interpretation with radiology: Discussion of test interpretation with radiology Discharge Plan Discharge Clinical Impression: Abscess, scrotum, Leukocytosis Patient Disposition: Admitted As Inpatient
[2022-07-03 14:58] LABS: MANUAL DIFF FLAG NO
[2022-07-03 15:00] LABS: Basophils Absolute Auto 0.1 X10*3/uL (0.0-0.2); Basophils Percent Auto 0.3 % (0-2); Eosinophils Absolute Auto 0.1 X10*3/uL (0.0-0.4); Eosinophils Percent Auto 0.6 % (0-4); Hematocrit 32.9 % (42.0-52.0); Hemoglobin 10.1 g/dl (14.0-18.0); Imm Gran Abs Auto 0.12 X10*3/uL (0.00-0.03); Imm Gran Pct Auto 0.6 % (0.0-0.4); Lymphocytes Absolute Auto 1.4 X10*3/uL (1.2-4.9); Lymphocytes Percent Auto 6.3 % (20-40); Mean Corpuscular HGB Conc 30.7 g/dl (31.0-36.0); Mean Corpuscular Hemoglobin 26.8 pg (27.0-33.0); Mean Corpuscular Volume 87.3 fL (80.0-98.0); Monocytes Absolute Auto 1.2 X10*3/uL (0.1-1.2); Monocytes Percent Auto 5.6 % (2-11); Neutrophils Absolute Auto 18.7 x10*3/uL (2.0-8.3); Neutrophils Percent Auto 86.6 % (45-73); Platelet Count 485 X10*3/uL (160-400); Red Blood Count 3.77 X10*6/uL (4.60-5.80); White Blood Count 21.6 X10*3/uL (4.8-10.8)
[2022-07-03 15:07] LABS: INTERNATIONAL NORM RATIO 2.2 (0.9-1.1); Prothrombin Time 25.8 SEC (10.0-13.1)
[2022-07-03 15:10] LABS: Lactic Acid 1.7 mmol/L (0.5-2.0)
--- NOTE | 2022-07-03 15:20 | PC.NURSE ---
report received from LISA Loera. pt is alert and oriented resting in bed no signs of acute distress notice denies any pain breathing equally unlabored
[2022-07-03 15:21] LABS: Alanine Aminotransferase 12 U/L (0-40); Albumin Level 2.9 g/dL (3.5-5.0); Alkaline Phosphatase 125 U/L (39-117); Anion Gap 12 (12-20); Aspartate Amino Transferase 15 U/L (5-37); Bilirubin Direct 0.4 mg/dL (0.0-0.5); Blood Urea Nitrogen 10 mg/dL (9-16); Calcium 8.6 mg/dL (8.4-10.2); Carbon Dioxide 28 mmol/L (22-29); Chloride 101 mmol/L (96-108); Creatinine Clr Calc Pharmacy 85.5; Estimated Glomerular Filt Rate > 60; Glucose Random 114 mg/dL (60-115); Potassium 3.8 mmol/L (3.3-5.1); Sodium 137 mmol/L (135-145); Total Protein 7.2 g/dL (6.5-8.0)
[2022-07-03 15:44] LABS: Bilirubin Total 0.6 mg/dL (0.0-1.0)
[2022-07-03] MEDS: iohexoL 350 MG/ML 100 ML INFUS..BTL IV (15:58)
[2022-07-03] MEDS: cefTRIAXone sodium 1 GM in 0.9 % Sodium Chloride 50 ML IV (16:58)
--- NOTE | 2022-07-03 17:54 | PHA.MEDREC ---
Pharmacy Consult ? Medication Reconciliation Pharmacy has completed the medication reconciliation. He states that he only takes tylenol as needed but he did take some this morning because he's currently in pain.He also says he takes miralax powder as needed but takes it more days than he does not take it even though he isn't sure it's helping.
[2022-07-03 18:22] LABS: Appearance Urine Clear; Color Urine Yellow; Glucose Urine UA Negative (Negative); Leukocyte Esterase Urine Negative (Negative); Nitrite Urine Negative (Negative); Specific Gravity - Urine >= 1.030 (1.005-1.025); UMIC TRIGGER UACC YES; Urine Blood Trace (Negative); Urine Ketones Negative (Negative); Urine Protein Negative (Neg-Trace)
[2022-07-03 18:34] LABS: COVID-19 Test Negative (Negative); IDNOW Serial# BCCEAD1C
--- NOTE | 2022-07-03 19:26 | PM.IMHP ---
History of Present Illness Date of Service: 07/03/22 Chief Complaint: Scrotal swelling This is a 82-year-old male with pertinent history of persistent atrial fibrillation on Eliquis who presents to the emergency department for evaluation of scrotal swelling. Patient states he has had inguinal hernia for a few months now. No pain. Over the last few days he has noticed scrotal swelling which started bleeding on the day of presentation. Patient states the swelling has been progressive and without any relieving factors. Denies fever, chills, nausea, vomiting, chest discomfort, palpitations, shortness of breath, abdominal pain, changes in urinary or bowel habits. In the emergency department, scrotal abscess was noted and noted urology was consulted who requested admission and will evaluate the patient in a.m. Review of Systems Constitutional: Constitutional: Reports no additional constitutional complaints Cardiovascular: Cardiovascular: Reports no additional cardiovascular complaints Respiratory: Respiratory: Reports no additional respiratory complaints Gastrointestinal: Gastrointestinal: Reports no additional gastrointestinal complaints Genitourinary: Genitourinary: Reports scrotal swelling [facility] Medical History Persistent atrial fibrillation Right inguinal hernia Family History Mother Breast cancer Surgical History No pertinent past surgical history Social History Household Members: Family Housing: House Do you presently have visiting nurse or other home services: No Alcohol intake: never Patient Tobacco Use Status: Never used Tobacco e-Cigarette/Vaping Use: Never Used Advance Directives: No service: No Current occupational status: retired [employer] Allergies Allergy/AdvReac Type Severity Reaction Status Date / Time No Known Allergies Allergy Verified 07/01/22 10:16 Active Medications: Current Medications Acetaminophen (Acetaminophen 325 Mg Tablet) 650 mg PO Q6H PRN PRN Reason: Pain, Mild (Pain Scale 1-3) Vancomycin HCl (Vancomycin/Ns) 2,000 mg in 520 mls @ 260 mls/hr IV ONCE ONE Stop: 07/03/22 19:32 Last Admin: 07/03/22 18:07 Dose: 260 mls/hr Melatonin (Melatonin 3 Mg Tablet) 6 mg PO BEDTIME PRN PRN Reason: Insomnia Ondansetron HCl (Ondansetron Hcl 4 Mg/2 Ml Vial) 4 mg IVPUSH Q8H PRN PRN Reason: Nausea and Vomiting Pharmacy Consult (Consult Rx Perform Med Rec) 1 each MISCELLANE ONCE PRN PRN Reason: Consult order Pharmacy Consult (Consult Rx Perform Med Rec) 1 each MISCELLANE ONCE PRN PRN Reason: Consult order Sodium Chloride (0.9 % Sodium Chloride Flush 3 Ml Syringe) 3 ml IVFLUSH QSHIFT [facility] Medications Medication Instructions Recorded Confirmed Last Taken Type multivitamin 1 tab PO DAILY 02/18/22 07/03/22 07/03/22 History acetaminophen 325 mg tablet 650 mg PO Q6H PRN Pain 07/03/22 07/03/22 07/03/22 History (Tylenol) polyethylene glycol 3350 17 gram 17 g PO DAILY PRN Constipation 07/03/22 07/03/22 Unknown History oral powder packet Physical Exam Vital Signs and Narrative: Vital Signs: Last Vital Signs Temp 97.6 F 07/03/22 15:20 Pulse 84 07/03/22 18:00 Resp 18 07/03/22 18:00 BP 121/68 07/03/22 18:00 Pulse Ox 97 07/03/22 18:00 O2 Del Method 07/03/22 18:00 BMI result Body Mass Index 23.1 Elderly male lying in bed in no distress Neck supple, no JVD Irregularly irregular, S1-S2 heard Regular breath sounds bilaterally, no wheezing or crackles appreciated Abdomen soft nontender, no guarding, no rigidity Patient is awake, alert and oriented to self, place, time and person ; no focal motor deficit Scrotum: picture as below Psych: Normal mood No pedal edema : Other: Perineum is normal. There is some expressible drainage from the central wound which is bloody in appearance Results Labs CBC and Chem 7: 07/03/22 14:51 07/03/22 14:51 Labs: Laboratory Results - last 24 hr 07/03/22 07/03/22 07/03/22 14:51 14:51 14:51 MCV 87.3 MCH 26.8 L MCHC 30.7 L RDW 15.0 Plt Count 485 H D MPV 9.0 L Immature Gran % (Auto) 0.6 H Neut % (Auto) 86.6 H Lymph % (Auto) 6.3 L [place] % (Auto) 5.6 Eos % (Auto) 0.6 Baso % (Auto) 0.3 Lymph # (Auto) 1.4 [place] # (Auto) 1.2 Eos # (Auto) 0.1 Baso # (Auto) 0.1 Abs Immat Gran (auto) 0.12 H Absolute Neuts (auto) 18.7 H Absolute Nucleated RBC 0.000 Nucleated RBC % (auto) 0.0 PT 25.8 H INR 2.2 H Anion Gap 12 Estim Creat Clear Calc 85.5 Estimated GFR > 60 Random Glucose 114 Lactic Acid Calcium 8.6 D Total Bilirubin 0.6 Direct Bilirubin 0.4 AST 15 ALT 12 Alkaline Phosphatase 125 H D Total Protein 7.2 Albumin 2.9 L Urine Color Urine Appearance Urine pH Ur Specific [place] Urine Protein Urine Glucose (UA) Urine Ketones Urine Blood Urine Nitrite Ur Leukocyte Esterase COVID-19 (YUSEF) COVID-19 Clin Com 07/03/22 07/03/22 07/03/22 14:51 18:01 18:01 MCV MCH MCHC RDW Plt Count MPV Immature Gran % (Auto) Neut % (Auto) Lymph % (Auto) [place] % (Auto) Eos % (Auto) Baso % (Auto) Lymph # (Auto) [place] # (Auto) Eos # (Auto) Baso # (Auto) Abs Immat Gran (auto) Absolute Neuts (auto) Absolute Nucleated RBC Nucleated RBC % (auto) PT INR Anion Gap Estim Creat Clear Calc Estimated GFR Random Glucose Lactic Acid 1.7 Calcium Total Bilirubin Direct Bilirubin AST ALT Alkaline Phosphatase Total Protein Albumin Urine Color Yellow Urine Appearance Clear Urine pH 7.0 Ur Specific [place] >= 1.030 H Urine Protein Negative Urine Glucose (UA) Negative Urine Ketones Negative Urine Blood Trace H Urine Nitrite Negative Ur Leukocyte Esterase Negative COVID-19 (YUSEF) Negative COVID-19 Clin Com See Note Imaging Radiologist's Impressions: Impressions Abdomen/Pelvis CT 07/03/22 15:59 IMPRESSION: 1. Large right inguinal hernia containing loops of distal ileum, terminal ileum, cecum and ascending colon without evidence for obstruction. This represents mild interval increase compared to the previous study. Interval development of adjacent large scrotal abscess as detailed above. 2. Other incidental findings detailed above without significant interval change. Assessment and Plan (1) Abscess, scrotum: Status: Acute (2) Leukocytosis: Status: Acute (3) Persistent atrial fibrillation: Status: Acute (4) Right inguinal hernia: Status: Acute Plan This is a 82-year-old male with pertinent history of persistent atrial fibrillation on Eliquis who presents to the emergency department for evaluation of left scrotal swelling. #. Sepsis due to right scrotal abscess: Will admit patient and initiate empiric IV antibiotics. Urology Dr Lima consulted from the ER, appreciate assistance. Will keep NPO after midnight and hold Eliquis until urology evaluation. Lactic acid and blood cultures obtained. Will resuscitate with IV crystalloids. #. Permanent atrial fibrillation: Continue rate controlling agents. Hold Eliquis #. Right inguinal hernia: No pain or imaging evidence of incarceration. Elective surgical evaluation once acute issues resolves #. Chronic normocytic anemia DVT prophylaxis: Mechanical. Holding Eliquis as above Diet: Cardiac diet. NPO after midnight Full code Admit as inpatient and will require two night minimum hospital stay for IV antibiotics Time Spent With Patient Time: Total time managing care of this patient today ____ minutes. Quality Stroke Does the patient have a stroke diagnosis?: No VTE Prior VTE?: No VTE Risk Level:: Medical - moderate - high VTE Device Contraindication: N/A - Device Ordered VTE Drug Contraindication: Treatment Not Indicated
--- NOTE | 2022-07-03 19:29 | PC.NURSE ---
Assumed care of patient. Patient resting quietly while watching tv.
[2022-07-03] MEDS: 0.9 % Sodium Chloride 1,000 ML 999 ML IV (20:04)
--- NOTE | 2022-07-03 20:04 | PC.NURSE ---
vancomycin continues to run; 1L NS also running at this time per MAR
[2022-07-03] MEDS: Metoprolol Tartrate 25 MG TABLET PO (20:35)
--- NOTE | 2022-07-03 20:35 | PC.NURSE ---
Administered 25 mg metoprolol PO per SEP.
[2022-07-03 20:55] LABS: Bacteria Urine None Seen (None Seen); Hyaline Casts Urine 0-2 /LPF (0-2); RBC Urine 0-2 /HPF (0-2); Squamous Epithelial Cell Urine 0-2 /HPF (0-2); WBC Urine 0-5 /HPF (0-5)
--- NOTE | 2022-07-03 23:39 | PC.NURSE ---
Gave report to LISA Watts ([id number]). Patient to go to rm [id number].
[2022-07-04] VITALS: BP 134/81; PULSE 78; RESP 18; TEMP 36.7; O2SAT 96
[2022-07-04 00:42] VITALS: BMI 23.2
[2022-07-04 06:31] LABS: MANUAL DIFF FLAG NO
[2022-07-04 06:36] LABS: Basophils Absolute Auto 0.1 X10*3/uL (0.0-0.2); Basophils Percent Auto 0.6 % (0-2); Eosinophils Absolute Auto 0.2 X10*3/uL (0.0-0.4); Eosinophils Percent Auto 1.3 % (0-4); Hematocrit 31.2 % (42.0-52.0); Hemoglobin 9.6 g/dl (14.0-18.0); Imm Gran Abs Auto 0.09 X10*3/uL (0.00-0.03); Imm Gran Pct Auto 0.6 % (0.0-0.4); Lymphocytes Absolute Auto 1.9 X10*3/uL (1.2-4.9); Lymphocytes Percent Auto 13.4 % (20-40); Mean Corpuscular HGB Conc 30.8 g/dl (31.0-36.0); Mean Corpuscular Hemoglobin 26.9 pg (27.0-33.0); Mean Corpuscular Volume 87.4 fL (80.0-98.0); Mean Platelet Volume 9.4 fL (9.4-12.4); Monocytes Absolute Auto 0.8 X10*3/uL (0.1-1.2); Monocytes Percent Auto 5.6 % (2-11); Neutrophils Percent Auto 78.5 % (45-73); Platelet Count 519 X10*3/uL (160-400); Red Blood Count 3.57 X10*6/uL (4.60-5.80); Red Cell Distribution Width 14.9 % (11.0-16.0)
[2022-07-04 06:45] LABS: INTERNATIONAL NORM RATIO 1.8 (0.9-1.1); Prothrombin Time 20.8 SEC (10.0-13.1)
[2022-07-04 06:56] LABS: Anion Gap 13 (12-20); Blood Urea Nitrogen 7 mg/dL (9-16); Calcium 8.5 mg/dL (8.4-10.2); Carbon Dioxide 27 mmol/L (22-29); Chloride 104 mmol/L (96-108); Creatinine Clr Calc Pharmacy 89.5; Estimated Glomerular Filt Rate > 60; Glucose Random 87 mg/dL (60-115); Potassium 4.2 mmol/L (3.3-5.1); Sodium 140 mmol/L (135-145)
[2022-07-04 07:34] VITALS: BP 132/69; PULSE 95; RESP 17; TEMP 36.9; O2SAT 97
[2022-07-04] MEDS: 0.9 % Sodium Chloride Flush 3 ML SYRINGE IVFLUSH ×2 (08:25→19:31)
[2022-07-04] MEDS: Piperacillin Sodium/Tazobactam 3.375 GM in 0.9 % Sodium Chloride 50 ML IV ×3 (08:25→19:31)
[2022-07-04] MEDS: dilTIAZem HCL CD 180 MG CAP.ER.24H 360 MG PO (08:26)
[2022-07-04] MEDS: Metoprolol Tartrate 25 MG TABLET PO ×2 (08:26→20:22)
--- NOTE | 2022-07-04 08:54 | MHC.CM.PN ---
IMM DELIVERED CM MET WITH PT, LIVES IN SINGLE FAMILY HOME WITH SPOUSE. NO PRIOR SERVICES OR DME. +HCP AT HOME, WILL HAVE BRING IN A COPY. COVID VAXX 4. PCP MIKE RODRIGUEZ DP: HOME, NO SERVICES ANTICIPATED. SPOUSE WILL TRANSPORT HOME.
--- NOTE | 2022-07-04 09:09 | HO.PM.IMPN ---
Subjective Subjective Date of Service: 07/04/22 Interval History: cc: scrotal abscess with bleeding interval history: unchanged Cardiovascular Cardiovascular: Reports no additional cardiovascular complaints Respiratory Respiratory: Reports no additional respiratory complaints Physical Exam Vital Signs: Vital Signs: Last Vital Signs Temp 98.4 F 07/04/22 07:34 Pulse 95 07/04/22 07:34 Resp 17 07/04/22 07:34 BP 132/69 07/04/22 07:34 Pulse Ox 97 07/04/22 07:34 O2 Del Method 07/04/22 07:34 BMI result Body Mass Index 23.2 General: AO X 3, no acute distress Resp: CTA bilateral, no accessory muscles used CVS: S1,S2,RRR GI: soft, non tender, non distended Neuro: motor grossly intact, alert Psych: appropriate affect, appropriate insight scrotal abscess Objective Data Active Medications Acetaminophen (Acetaminophen 325 Mg Tablet) 650 mg PO Q6H PRN PRN Reason: Pain, Mild (Pain Scale 1-3) Diltiazem HCl (Diltiazem Hcl Cd 180 Mg Cap.Er.24h) 360 mg PO DAILY [facility]; Protocol Last Admin: 07/04/22 08:26 Dose: 360 mg Documented By: DOC Piperacillin Sod/Tazobactam (Sod 3.375 gm/ Sodium Chloride) 50 mls @ 100 mls/hr IV Q6H [facility] Last Admin: 07/04/22 08:25 Dose: 100 mls/hr Documented By: DOC Vancomycin HCl 1,500 mg/ (Sodium Chloride) 500 mls @ 333.333 mls/hr IV Q24H [facility] Melatonin (Melatonin 3 Mg Tablet) 6 mg PO BEDTIME PRN PRN Reason: Insomnia Metoprolol Tartrate (Metoprolol Tartrate 25 Mg Tablet) 25 mg PO BID [facility]; Protocol Last Admin: 07/04/22 08:26 Dose: 25 mg Documented By: DOC Ondansetron HCl (Ondansetron Hcl 4 Mg/2 Ml Vial) 4 mg IVPUSH Q8H PRN PRN Reason: Nausea and Vomiting Pharmacy Consult (Consult Rx Perform Med Rec) 1 each MISCELLANE ONCE PRN PRN Reason: Consult order Pharmacy Consult (Consult Rx Perform Med Rec) 1 each MISCELLANE ONCE PRN PRN Reason: Consult order Pharmacy Consult (Consult Rx Vancomycin Dosing) 1 each MISCELLANE DAILY PRN PRN Reason: Consult order Polyethylene Glycol (Polyethylene Glycol 3350 17 Gm Powd.Pack) 17 gm PO DAILY PRN PRN Reason: Constipation Sodium Chloride (0.9 % Sodium Chloride Flush 3 Ml Syringe) 3 ml IVFLUSH QSHIFT [facility] Last Admin: 07/04/22 08:25 Dose: 3 ml Documented By: DOC Labs CBC & Chem 7: 07/04/22 05:41 07/04/22 05:41 Labs: Laboratory Results - last 24 hr 07/03/22 07/03/22 07/03/22 14:51 14:51 14:51 MCV 87.3 MCH 26.8 L MCHC 30.7 L RDW 15.0 Plt Count 485 H D MPV 9.0 L Immature Gran % (Auto) 0.6 H Neut % (Auto) 86.6 H Lymph % (Auto) 6.3 L [place] % (Auto) 5.6 Eos % (Auto) 0.6 Baso % (Auto) 0.3 Lymph # (Auto) 1.4 [place] # (Auto) 1.2 Eos # (Auto) 0.1 Baso # (Auto) 0.1 Abs Immat Gran (auto) 0.12 H Absolute Neuts (auto) 18.7 H Absolute Nucleated RBC 0.000 Nucleated RBC % (auto) 0.0 PT 25.8 H INR 2.2 H Anion Gap 12 Estim Creat Clear Calc 85.5 Estimated GFR > 60 Random Glucose 114 Lactic Acid Calcium 8.6 D Total Bilirubin 0.6 Direct Bilirubin 0.4 AST 15 ALT 12 Alkaline Phosphatase 125 H D Total Protein 7.2 Albumin 2.9 L Urine Color Urine Appearance Urine pH Ur Specific [place] Urine Protein Urine Glucose (UA) Urine Ketones Urine Blood Urine Nitrite Ur Leukocyte Esterase Urine RBC Urine WBC Ur Squamous Epith Cells Urine Bacteria Hyaline Casts COVID-19 ([facility]) COVID-19 Clin Com 07/03/22 07/03/22 07/03/22 14:51 18:01 18:01 MCV MCH MCHC RDW Plt Count MPV Immature Gran % (Auto) Neut % (Auto) Lymph % (Auto) [place] % (Auto) Eos % (Auto) Baso % (Auto) Lymph # (Auto) [place] # (Auto) Eos # (Auto) Baso # (Auto) Abs Immat Gran (auto) Absolute Neuts (auto) Absolute Nucleated RBC Nucleated RBC % (auto) PT INR Anion Gap Estim Creat Clear Calc Estimated GFR Random Glucose Lactic Acid 1.7 Calcium Total Bilirubin Direct Bilirubin AST ALT Alkaline Phosphatase Total Protein Albumin Urine Color Yellow Urine Appearance Clear Urine pH 7.0 Ur Specific [place] >= 1.030 H Urine Protein Negative Urine Glucose (UA) Negative Urine Ketones Negative Urine Blood Trace H Urine Nitrite Negative Ur Leukocyte Esterase Negative Urine RBC 0-2 Urine WBC 0-5 Ur Squamous Epith Cells 0-2 Urine Bacteria None Seen Hyaline Casts 0-2 COVID-19 (YUSEF) Negative COVID-19 Clin Com See Note 07/04/22 07/04/22 07/04/22 05:41 05:41 05:41 MCV 87.4 MCH 26.9 L MCHC 30.8 L RDW 14.9 Plt Count 519 H MPV 9.4 Immature Gran % (Auto) 0.6 H Neut % (Auto) 78.5 H Lymph % (Auto) 13.4 L [place] % (Auto) 5.6 Eos % (Auto) 1.3 Baso % (Auto) 0.6 Lymph # (Auto) 1.9 [place] # (Auto) 0.8 Eos # (Auto) 0.2 Baso # (Auto) 0.1 Abs Immat Gran (auto) 0.09 H Absolute Neuts (auto) 11.0 H Absolute Nucleated RBC 0.000 Nucleated RBC % (auto) 0.0 PT 20.8 H INR 1.8 H Anion Gap 13 Estim Creat Clear Calc 89.5 Estimated GFR > 60 Random Glucose 87 Lactic Acid Calcium 8.5 Total Bilirubin Direct Bilirubin AST ALT Alkaline Phosphatase Total Protein Albumin Urine Color Urine Appearance Urine pH Ur Specific [place] Urine Protein Urine Glucose (UA) Urine Ketones Urine Blood Urine Nitrite Ur Leukocyte Esterase Urine RBC Urine WBC Ur Squamous Epith Cells Urine Bacteria Hyaline Casts COVID-19 (YUSEF) COVID-19 Clin Com Assessment and Plan (1) Abscess, scrotum: Status: Acute Plan 82-year-old male with pertinent history of persistent atrial fibrillation on Eliquis who presented to the emergency department for evaluation of left scrotal swelling/bleeding. Sepsis due to hernia complicated by right scrotal abscess:? plan for OR today continue vanc and zosyn follow up cultures holding eliquis Permanent atrial fibrillation: holding eliquis, continue cardizem Right inguinal hernia surgical evaluation Chronic normocytic anemia with thrombocytosis c/w inflammation DVT prophylaxis:? Mechanical.? Holding Eliquis as above Full code reason for continued hospitalization:iv abx/ surgical drainage planned Time Spent With Patient Time: Total time managing care of this patient today ____ minutes. Quality Stroke Does the patient have a stroke diagnosis?: No VTE Prior VTE?: No VTE Risk Level:: Medical - moderate - high VTE Device Contraindication: N/A - Device Ordered VTE Drug Contraindication: Treatment Not Indicated
--- NOTE | 2022-07-04 09:16 | P.CONGS_ITS ---
History of Present Illness Consult details Consult date: 07/04/22 Requesting physician: Miguel Angel Garrison Narrative: 82-year-old male patient with history of atrial fibrillation, on oral anticoagulation, essential hypertension and a known history of a large incarcerated right inguinal hernia presenting with purulent discharge from the scrotum. Patient was home when he began to note bleeding from the scrotum which initially was pure blood but then occluded some clear discharge as well. He reports a large quantity of discharge which would not stop. He subsequently presented to the emergency department for further evaluation. He denies significant pain in the scrotum. His hernia was recently evaluated by Dr. Rosenberg in the office on 07/01/2022. He was considering having the hernia repaired although he reports that he decided against it. He denies abdominal pain distension, and has been eating without nausea or vomiting. Workup in the emergency department included WBC of 21.6. A CT abdomen pelvis revealed a large right inguinal hernia with a complex collection measuring 15 x 7 x 9 cm medially and 4.5 x 3.7 x 2.7 cm laterally. Patient is admitted for IV antibiotics and further management of the scrotal abscess. This morning his WBC is 14.0 and he denies any scrotal pain. Review of Systems Review of Systems: Yes all other systems are reviewed and are negative Constitutional: Constitutional: Denies chills, Denies fever(s) and Denies night sweats Cardiovascular: Cardiovascular: Denies chest pain, Reports rapid heart rate, Reports irregular heart rhythm and Denies dyspnea Respiratory: Respiratory: Denies cough and Denies dyspnea Gastrointestinal: Gastrointestinal: Denies abdominal pain, Denies bloating, Denies constipation and Denies GI cramping Genitourinary: Genitourinary: Reports as per HPI and Reports scrotal swelling Integumentary/Breasts: Skin/Breast: Reports as per HPI Hematologic/Lymphatic: Hematologic/Lymphatic: Reports easy bleeding PMFSH Past Medical History Medical History Persistent atrial fibrillation Right inguinal hernia Family History Family History Mother Breast cancer Surgical History Surgical History No pertinent past surgical history Social History Social History Household Members: Spouse Housing: House Do you presently have visiting nurse or other home services: No Alcohol intake: never Patient Tobacco Use Status: Never used Tobacco e-Cigarette/Vaping Use: Never Used service: No Current occupational status: retired Meds Allergies Allergy/AdvReac Type Severity Reaction Status Date / Time No Known Allergies Allergy Verified 07/01/22 10:16 Active Medications: Current Medications Acetaminophen (Acetaminophen 325 Mg Tablet) 650 mg PO Q6H PRN PRN Reason: Pain, Mild (Pain Scale 1-3) Diltiazem HCl (Diltiazem Hcl Cd 180 Mg Cap.Er.24h) 360 mg PO DAILY [facility]; Protocol Last Admin: 07/04/22 08:26 Dose: 360 mg Piperacillin Sod/Tazobactam (Sod 3.375 gm/ Sodium Chloride) 50 mls @ 100 mls/hr IV Q6H [facility] Last Admin: 07/04/22 08:25 Dose: 100 mls/hr Vancomycin HCl 1,500 mg/ (Sodium Chloride) 500 mls @ 333.333 mls/hr IV Q24H [facility] Melatonin (Melatonin 3 Mg Tablet) 6 mg PO BEDTIME PRN PRN Reason: Insomnia Metoprolol Tartrate (Metoprolol Tartrate 25 Mg Tablet) 25 mg PO BID [facility]; Protocol Last Admin: 07/04/22 08:26 Dose: 25 mg Ondansetron HCl (Ondansetron Hcl 4 Mg/2 Ml Vial) 4 mg IVPUSH Q8H PRN PRN Reason: Nausea and Vomiting Pharmacy Consult (Consult Rx Perform Med Rec) 1 each MISCELLANE ONCE PRN PRN Reason: Consult order Pharmacy Consult (Consult Rx Perform Med Rec) 1 each MISCELLANE ONCE PRN PRN Reason: Consult order Pharmacy Consult (Consult Rx Vancomycin Dosing) 1 each MISCELLANE DAILY PRN PRN Reason: Consult order Polyethylene Glycol (Polyethylene Glycol 3350 17 Gm Powd.Pack) 17 gm PO DAILY PRN PRN Reason: Constipation Sodium Chloride (0.9 % Sodium Chloride Flush 3 Ml Syringe) 3 ml IVFLUSH QSHIFT [facility] Last Admin: 07/04/22 08:25 Dose: 3 ml Home Medications Medication Instructions Recorded Confirmed Last Taken Type multivitamin 1 tab PO DAILY 02/18/22 07/03/22 07/03/22 History acetaminophen 325 mg tablet 650 mg PO Q6H PRN Pain 07/03/22 07/03/22 07/03/22 History (Tylenol) polyethylene glycol 3350 17 gram 17 g PO DAILY PRN Constipation 07/03/22 07/03/22 Unknown History oral powder packet Physical Exam Vital Signs: Vital Signs: Last Vital Signs Temp 98.4 F 07/04/22 07:34 Pulse 95 07/04/22 07:34 Resp 17 07/04/22 07:34 BP 132/69 07/04/22 07:34 Pulse Ox 97 07/04/22 07:34 O2 Del Method 07/04/22 07:34 BMI result Body Mass Index 23.2 Const: General: no acute distress and alert Nutritional Appearance: thin Orientation/consciousness: patient oriented x3 HEENT: Head: Yes normocephalic and Yes atraumatic Ears: hearing grossly normal bilaterally Resp: Effort & Inspection: normal respiratory effort Auscultation: clear to auscultation bilaterally GI: Inspection: Yes normal to inspection Palpation (GI): Soft to palpation, nontender, no guarding and not rigid : Male General Exam: Yes hernia (Large chronic right inguinal hernia non reducible) Scrotum: scrotal swelling (Diffuse swelling of the scrotum with minimal erythema appreciated) Male genitals images: 1. Scrotal swelling consistent with large incarcerated but non strangulated right inguinal hernia. No tenderness to palpation. 2. Purulent discharge noted Neuro: General: patient oriented x3 Results Labs Result diagrams: 07/04/22 05:41 07/04/22 05:41 Labs: Abnormal lab results 07/03/22 07/03/22 07/03/22 Range/Units 14:51 14:51 14:51 WBC 21.6 H (4.8-10.8) X10*3/uL RBC 3.77 L (4.60-5.80) X10*6/uL Hgb 10.1 L (14.0-18.0) g/dl Hct 32.9 L (42.0-52.0) % MCH 26.8 L (27.0-33.0) pg MCHC 30.7 L (31.0-36.0) g/dl Plt Count 485 H D (160-400) X10*3/uL MPV 9.0 L (9.4-12.4) fL Immature Gran % (Auto) 0.6 H (0.0-0.4) % Neut % (Auto) 86.6 H (45-73) % Lymph % (Auto) 6.3 L (20-40) % Abs Immat Gran (auto) 0.12 H (0.00-0.03) X10*3/uL Absolute Neuts (auto) 18.7 H (2.0-8.3) x10*3/uL PT 25.8 H (10.0-13.1) SEC INR 2.2 H (0.9-1.1) BUN (9-16) mg/dL Alkaline Phosphatase 125 H D (39-117) U/L Albumin 2.9 L (3.5-5.0) g/dL Ur Specific [place] (1.005-1.025) Urine Blood (Negative) 07/03/22 07/04/22 07/04/22 Range/Units 18:01 05:41 05:41 WBC 14.0 H (4.8-10.8) X10*3/uL RBC 3.57 L (4.60-5.80) X10*6/uL Hgb 9.6 L (14.0-18.0) g/dl Hct 31.2 L (42.0-52.0) % MCH 26.9 L (27.0-33.0) pg MCHC 30.8 L (31.0-36.0) g/dl Plt Count 519 H (160-400) X10*3/uL MPV (9.4-12.4) fL Immature Gran % (Auto) 0.6 H (0.0-0.4) % Neut % (Auto) 78.5 H (45-73) % Lymph % (Auto) 13.4 L (20-40) % Abs Immat Gran (auto) 0.09 H (0.00-0.03) X10*3/uL Absolute Neuts (auto) 11.0 H (2.0-8.3) x10*3/uL PT (10.0-13.1) SEC INR (0.9-1.1) BUN 7 L (9-16) mg/dL Alkaline Phosphatase (39-117) U/L Albumin (3.5-5.0) g/dL Ur Specific [place] >= 1.030 H (1.005-1.025) Urine Blood Trace H (Negative) 07/04/22 Range/Units 05:41 WBC (4.8-10.8) X10*3/uL RBC (4.60-5.80) X10*6/uL Hgb (14.0-18.0) g/dl Hct (42.0-52.0) % MCH (27.0-33.0) pg MCHC (31.0-36.0) g/dl Plt Count (160-400) X10*3/uL MPV (9.4-12.4) fL Immature Gran % (Auto) (0.0-0.4) % Neut % (Auto) (45-73) % Lymph % (Auto) (20-40) % Abs Immat Gran (auto) (0.00-0.03) X10*3/uL Absolute Neuts (auto) (2.0-8.3) x10*3/uL PT 20.8 H (10.0-13.1) SEC INR 1.8 H (0.9-1.1) BUN (9-16) mg/dL Alkaline Phosphatase (39-117) U/L Albumin (3.5-5.0) g/dL Ur Specific [place] (1.005-1.025) Urine Blood (Negative) Short CBC 07/03/22 07/04/22 Range/Units 14:51 05:41 WBC 21.6 H 14.0 H (4.8-10.8) X10*3/uL Hgb 10.1 L 9.6 L (14.0-18.0) g/dl Hct 32.9 L 31.2 L (42.0-52.0) % Plt Count 485 H D 519 H (160-400) X10*3/uL BMP 07/03/22 07/04/22 14:51 05:41 Sodium 137 140 Potassium 3.8 4.2 Chloride 101 104 Carbon Dioxide 28 27 BUN 10 7 L Creatinine 0.76 0.73 Calcium 8.6 D 8.5 Liver Function 07/03/22 Range/Units 14:51 Total Bilirubin 0.6 (0.0-1.0) mg/dL Direct Bilirubin 0.4 (0.0-0.5) mg/dL AST 15 (5-37) U/L ALT 12 (0-40) U/L Alkaline Phosphatase 125 H D (39-117) U/L Albumin 2.9 L (3.5-5.0) g/dL Urine 07/03/22 Range/Units 18:01 Urine Color Yellow Urine Appearance Clear Urine pH 7.0 (5.0-9.0) Ur Specific [place] >= 1.030 H (1.005-1.025) Urine Protein Negative (Neg-Trace) mg/dL Urine Glucose (UA) Negative (Negative) mg/dL All other labs normal. Assessment and Plan (1) Abscess, scrotum: Status: Acute (2) Right inguinal hernia: Status: Acute Plan 82-year-old male patient with a large incarcerated right inguinal hernia previously evaluated by Dr. Rosenberg and decision made to hold off on repair due to other medical issues now presenting with purulence discharge from the scrotal sac. Laboratories revealed WBC of 21 K yesterday down to [address] indicates a large fluid collection side the large inguinal hernia which is being described as an abscess although portions of it may in fact be a chronic hydrocele given the large hernia. There are air bubbles on the left portion wh ich are consistent with an abscess. The inguinal hernia would be very difficult to repair due to the longstanding loss of domain of the bowel from the abdominal cavity and almost certainly would require combined abdominal and inguinal approach. A mesh repair would be certainly required for this type of large hernia, which would be impossible at this time given the current scrotal infection. The abscess does appear to be improving with improvement in his WBC both from the spontaneous drainage and antibiotics. I would recommend urology consultation for further evaluation of the scrotal abscess. Would hold oral anticoagulation if medically feasible. Time Spent With Patient Time: Total time managing care of this patient today ____ minutes. Procedures Date of Service Date of Service: 07/04/22
--- NOTE | 2022-07-04 09:19 | PHA.PROG ---
Admission Date/Time: July 03, 2022 19:04 Indication: Sepsis Weight in k.8 kg Adjusted body weight in K.86 kg [place] body weight in K.9 kg Obesity Dosing Indication % IBW: N/A Serum Creatinine - Last 168 Hours 07/03/22 07/04/22 14:51 05:41 Creatinine 0.76 0.73 Estimated CrCl and GFR - Last 168 Hours 07/03/22 07/04/22 14:51 05:41 Estim Creat Clear Calc 85.5 89.5 Estimated GFR > 60 > 60 Vancomycin Loading Dose: 2000 mg Current Vancomycin Dosing Regimen: 1500 mg q24h Date and Time for next Vancomycin Level to be drawn: 07/05 @ 1600 Pharmacist Comments on Vancomycin Plan: Patient received an adequate loading dose of vancomycin 2000 mg on 07/03 at 1807. Maintenance dose 1500 mg Q24H schedule to start 07/04 @ 1800. Expected AUC 533 with a trough of 15.5. Random level to be drawn prior to 3rd dose to access for safety and efficacy. Pharmacy to monitor renal function daily. Sandy Blanco PharmD Vancomycin dosing will take advantage of [employer] as a clinical decision support tool that uses Bayesian modeling to calculate individual patient's pharmacokinetic parameters and forecast the patient's drug concentration time course with the target goal AUC 24 range of 400 - 600 mg/L/hr.
--- NOTE | 2022-07-04 13:08 | PM.UROCN ---
History of Present Illness Consult details Consult date: 07/04/22 Narrative: Consulting complaint right scrotal abscess 82-year-old male Presents through emergency department with question of right scrotal abscess Known large inguinal hernia with bowel Prior evaluation with General surgery Had noted bleeding from midline of scrotum with swelling. Denies fevers, chills, nausea or abdominal pain White count on admission 21 down to 14 with IV antibiotics Imaging ABDOMINAL WALL: Large right inguinal hernia. External to the hernia is a large a large complex scrotal abscess the largest component is seen medially measuring approximately 15.0 x 6.8 x 9.0 cm (image 33, series 5; image 8, series 9). This extends inferiorly and laterally around the inferior margin of the hernia. A small component appears to extend laterally into the medial margin of the hernia measuring approximately 4.5 x 3.7 x 2.7 cm (image 38, series 5; image 33, series 7). Discussed with Concerned that abscess may been connected to herniated bowel Continue IV antibiotics Probable drainage of abscess in of operating room Wednesday Once fully healed may need hernia repair. Could not be performed concurrently secondary to risk of infection. Review of Systems Constitutional: Constitutional: Reports as per HPI and Reports no additional constitutional complaints Cardiovascular: Cardiovascular: Reports as per HPI and Reports no additional cardiovascular complaints Respiratory: Respiratory: Reports as per HPI and Reports no additional respiratory complaints Gastrointestinal: Gastrointestinal: Reports as per HPI and Reports no additional gastrointestinal complaints Genitourinary: Genitourinary: Reports as per HPI Musculoskeletal: Musculoskeletal: Reports no additional musculoskeletal complaints and Reports as per HPI Neurologic: Reports system reviewed and no additional complaints, except as documented and Reports as per HPI [facility] Past Medical History Medical History Persistent atrial fibrillation Right inguinal hernia Family History Family History Mother Breast cancer Surgical History Surgical History No pertinent past surgical history Social History Social History Household Members: Spouse Housing: House Do you presently have visiting nurse or other home services: No Alcohol intake: never Patient Tobacco Use Status: Never used Tobacco e-Cigarette/Vaping Use: Never Used service: No Current occupational status: retired [employer] Allergies Allergy/AdvReac Type Severity Reaction Status Date / Time No Known Allergies Allergy Verified 07/01/22 10:16 Active Medications: Current Medications Acetaminophen (Acetaminophen 325 Mg Tablet) 650 mg PO Q6H PRN PRN Reason: Pain, Mild (Pain Scale 1-3) Diltiazem HCl (Diltiazem Hcl Cd 180 Mg Cap.Er.24h) 360 mg PO DAILY [facility]; Protocol Last Admin: 07/04/22 08:26 Dose: 360 mg Piperacillin Sod/Tazobactam (Sod 3.375 gm/ Sodium Chloride) 50 mls @ 100 mls/hr IV Q6H [facility] Last Infusion: 07/04/22 09:39 Dose: Infused Vancomycin HCl 1,500 mg/ (Sodium Chloride) 500 mls @ 333.333 mls/hr IV Q24H [facility] Melatonin (Melatonin 3 Mg Tablet) 6 mg PO BEDTIME PRN PRN Reason: Insomnia Metoprolol Tartrate (Metoprolol Tartrate 25 Mg Tablet) 25 mg PO BID [facility]; Protocol Last Admin: 07/04/22 08:26 Dose: 25 mg Ondansetron HCl (Ondansetron Hcl 4 Mg/2 Ml Vial) 4 mg IVPUSH Q8H PRN PRN Reason: Nausea and Vomiting Pharmacy Consult (Consult Rx Perform Med Rec) 1 each MISCELLANE ONCE PRN PRN Reason: Consult order Pharmacy Consult (Consult Rx Perform Med Rec) 1 each MISCELLANE ONCE PRN PRN Reason: Consult order Pharmacy Consult (Consult Rx Vancomycin Dosing) 1 each MISCELLANE DAILY PRN PRN Reason: Consult order Polyethylene Glycol (Polyethylene Glycol 3350 17 Gm Powd.Pack) 17 gm PO DAILY PRN PRN Reason: Constipation Sodium Chloride (0.9 % Sodium Chloride Flush 3 Ml Syringe) 3 ml IVFLUSH QSHIFT [facility] Last Admin: 07/04/22 08:25 Dose: 3 ml Home Medications Medication Instructions Recorded Confirmed Last Taken Type multivitamin 1 tab PO DAILY 02/18/22 07/03/22 07/03/22 History acetaminophen 325 mg tablet 650 mg PO Q6H PRN Pain 07/03/22 07/03/22 07/03/22 History (Tylenol) polyethylene glycol 3350 17 gram 17 g PO DAILY PRN Constipation 07/03/22 07/03/22 Unknown History oral powder packet Physical Exam Vital Signs: Vital Signs: Last Vital Signs Temp 98.4 F 07/04/22 07:34 Pulse 95 07/04/22 07:34 Resp 17 07/04/22 07:34 BP 132/69 07/04/22 07:34 Pulse Ox 97 07/04/22 07:34 O2 Del Method 07/04/22 07:34 BMI result Body Mass Index 23.2 Const: General: cooperative, healthy appearing, comfortable and no acute distress Orientation/consciousness: patient oriented x3 HEENT: Face and sinus: Yes normal facial exam Mouth: moist mucous membranes Neck: Neck: Yes normal visual inspection, Yes full ROM and Yes trachea midline Chest: Chest palpation & inspection: normal inspection of the chest Resp: Effort & Inspection: normal respiratory effort, able to speak in complete sentences and no respiratory distress GI: Inspection: Yes normal to inspection Back/Spine/Pelvis: Cervical Spine: normal cervical lordosis Thoracic/Lumbar Spine: thoracic and lumbar spine normal to inspection Skin: General skin exam: no rashes or lesions noted Neuro: General: patient oriented x3, tone normal and moves all extremities Extrem: General: Yes normal to inspection and Yes capillary refill normal Results Labs Result diagrams: 07/04/22 05:41 07/04/22 05:41 Labs: Abnormal lab results 07/03/22 07/03/22 07/03/22 Range/Units 14:51 14:51 14:51 WBC 21.6 H (4.8-10.8) X10*3/uL RBC 3.77 L (4.60-5.80) X10*6/uL Hgb 10.1 L (14.0-18.0) g/dl Hct 32.9 L (42.0-52.0) % MCH 26.8 L (27.0-33.0) pg MCHC 30.7 L (31.0-36.0) g/dl Plt Count 485 H D (160-400) X10*3/uL MPV 9.0 L (9.4-12.4) fL Immature Gran % (Auto) 0.6 H (0.0-0.4) % Neut % (Auto) 86.6 H (45-73) % Lymph % (Auto) 6.3 L (20-40) % Abs Immat Gran (auto) 0.12 H (0.00-0.03) X10*3/uL Absolute Neuts (auto) 18.7 H (2.0-8.3) x10*3/uL PT 25.8 H (10.0-13.1) SEC INR 2.2 H (0.9-1.1) BUN (9-16) mg/dL Alkaline Phosphatase 125 H D (39-117) U/L Albumin 2.9 L (3.5-5.0) g/dL Ur Specific Brandon (1.005-1.025) Urine Blood (Negative) 07/03/22 07/04/22 07/04/22 Range/Units 18:01 05:41 05:41 WBC 14.0 H (4.8-10.8) X10*3/uL RBC 3.57 L (4.60-5.80) X10*6/uL Hgb 9.6 L (14.0-18.0) g/dl Hct 31.2 L (42.0-52.0) % MCH 26.9 L (27.0-33.0) pg MCHC 30.8 L (31.0-36.0) g/dl Plt Count 519 H (160-400) X10*3/uL MPV (9.4-12.4) fL Immature Gran % (Auto) 0.6 H (0.0-0.4) % Neut % (Auto) 78.5 H (45-73) % Lymph % (Auto) 13.4 L (20-40) % Abs Immat Gran (auto) 0.09 H (0.00-0.03) X10*3/uL Absolute Neuts (auto) 11.0 H (2.0-8.3) x10*3/uL PT (10.0-13.1) SEC INR (0.9-1.1) BUN 7 L (9-16) mg/dL Alkaline Phosphatase (39-117) U/L Albumin (3.5-5.0) g/dL Ur Specific Brandon >= 1.030 H (1.005-1.025) Urine Blood Trace H (Negative) 07/04/22 Range/Units 05:41 WBC (4.8-10.8) X10*3/uL RBC (4.60-5.80) X10*6/uL Hgb (14.0-18.0) g/dl Hct (42.0-52.0) % MCH (27.0-33.0) pg MCHC (31.0-36.0) g/dl Plt Count (160-400) X10*3/uL MPV (9.4-12.4) fL Immature Gran % (Auto) (0.0-0.4) % Neut % (Auto) (45-73) % Lymph % (Auto) (20-40) % Abs Immat Gran (auto) (0.00-0.03) X10*3/uL Absolute Neuts (auto) (2.0-8.3) x10*3/uL PT 20.8 H (10.0-13.1) SEC INR 1.8 H (0.9-1.1) BUN (9-16) mg/dL Alkaline Phosphatase (39-117) U/L Albumin (3.5-5.0) g/dL Ur Specific Brandon (1.005-1.025) Urine Blood (Negative) Short CBC 07/03/22 07/04/22 Range/Units 14:51 05:41 WBC 21.6 H 14.0 H (4.8-10.8) X10*3/uL Hgb 10.1 L 9.6 L (14.0-18.0) g/dl Hct 32.9 L 31.2 L (42.0-52.0) % Plt Count 485 H D 519 H (160-400) X10*3/uL BMP 07/03/22 07/04/22 14:51 05:41 Sodium 137 140 Potassium 3.8 4.2 Chloride 101 104 Carbon Dioxide 28 27 BUN 10 7 L Creatinine 0.76 0.73 Calcium 8.6 D 8.5 Liver Function 07/03/22 Range/Units 14:51 Total Bilirubin 0.6 (0.0-1.0) mg/dL Direct Bilirubin 0.4 (0.0-0.5) mg/dL AST 15 (5-37) U/L ALT 12 (0-40) U/L Alkaline Phosphatase 125 H D (39-117) U/L Albumin 2.9 L (3.5-5.0) g/dL Urine 12/09/22 Range/Units 18:01 Urine Color Yellow Urine Appearance Clear Urine pH 7.0 (5.0-9.0) Ur Specific Brandon >= 1.030 H (1.005-1.025) Urine Protein Negative (Neg-Trace) mg/dL Urine Glucose (UA) Negative (Negative) mg/dL All other labs normal. Assessment and Plan (1) Abscess, scrotum: Status: Acute Plan Drainage Wednesday in operating Time Spent With Patient Time: Total time managing care of this patient today ____ minutes. Procedures Date of Service Date of Service: 07/04/22
[2022-07-04 15:57] VITALS: BP 110/58; PULSE 92; RESP 18; TEMP 37.2; O2SAT 96
[2022-07-04] MEDS: vancomycin HCL 1,500 MG in 0.9 % Sodium Chloride 500 ML 333.33 MG IV (17:15)
[2022-07-04 23:33] VITALS: BP 115/69; PULSE 68; RESP 18; TEMP 36.1; O2SAT 98
[2022-07-05] MEDS: Piperacillin Sodium/Tazobactam 3.375 GM in 0.9 % Sodium Chloride 50 ML IV ×4 (02:23→20:01)
[2022-07-05 05:46] LABS: Hematocrit 34.5 % (42.0-52.0); Hemoglobin 10.7 g/dl (14.0-18.0); Mean Corpuscular Hemoglobin 27.1 pg (27.0-33.0); Mean Corpuscular Volume 87.3 fL (80.0-98.0); Mean Platelet Volume 8.9 fL (9.4-12.4); Platelet Count 585 X10*3/uL (160-400); Red Blood Count 3.95 X10*6/uL (4.60-5.80); White Blood Count 11.3 X10*3/uL (4.8-10.8)
[2022-07-05 06:07] LABS: Anion Gap 16 (12-20); Blood Urea Nitrogen 10 mg/dL (9-16); Calcium 8.8 mg/dL (8.4-10.2); Carbon Dioxide 26 mmol/L (22-29); Chloride 103 mmol/L (96-108); Creatinine Clr Calc Pharmacy 79.7; Estimated Glomerular Filt Rate > 60; Glucose Fasting 91 mg/dL (60-99); Potassium 4.1 mmol/L (3.3-5.1); Sodium 141 mmol/L (135-145)
[2022-07-05 07:59] VITALS: BP 123/72; PULSE 86; RESP 17; TEMP 36.4; O2SAT 97
[2022-07-05] MEDS: 0.9 % Sodium Chloride Flush 3 ML SYRINGE IVFLUSH ×4 (08:15→20:38)
[2022-07-05] MEDS: dilTIAZem HCL CD 180 MG CAP.ER.24H 360 MG PO (08:16)
[2022-07-05] MEDS: Metoprolol Tartrate 25 MG TABLET PO ×2 (08:16→20:01)
--- NOTE | 2022-07-05 08:33 | HO.PM.IMPN ---
Subjective Subjective Date of Service: 07/05/22 Interval History: cc: scrotal abscess with bleeding interval history: unchanged Cardiovascular Cardiovascular: Reports no additional cardiovascular complaints Respiratory Respiratory: Reports no additional respiratory complaints Physical Exam Vital Signs: Vital Signs: Last Vital Signs Temp 97.6 F 07/05/22 07:59 Pulse 86 07/05/22 07:59 Resp 17 07/05/22 07:59 BP 123/72 07/05/22 07:59 Pulse Ox 97 07/05/22 07:59 O2 Del Method 07/05/22 07:59 BMI result Body Mass Index 23.2 Const: General: cooperative, healthy appearing, comfortable and no acute distress Orientation/consciousness: patient oriented x3 HEENT: Face and sinus: Yes normal facial exam Mouth: moist mucous membranes Neck: Neck: Yes normal visual inspection, Yes full ROM and Yes trachea midline Chest: Chest palpation & inspection: normal inspection of the chest Resp: Effort & Inspection: normal respiratory effort, able to speak in complete sentences and no respiratory distress GI: Inspection: Yes normal to inspection Back/Spine/Pelvis: Cervical Spine: normal cervical lordosis Thoracic/Lumbar Spine: thoracic and lumbar spine normal to inspection Skin: General skin exam: no rashes or lesions noted Neuro: General: patient oriented x3, tone normal and moves all extremities Extrem: General: Yes normal to inspection and Yes capillary refill normal Objective Data Active Medications Acetaminophen (Acetaminophen 325 Mg Tablet) 650 mg PO Q6H PRN PRN Reason: Pain, Mild (Pain Scale 1-3) Diltiazem HCl (Diltiazem Hcl Cd 180 Mg Cap.Er.24h) 360 mg PO DAILY [facility]; Protocol Last Admin: 07/05/22 08:16 Dose: 360 mg Documented By: DOC Piperacillin Sod/Tazobactam (Sod 3.375 gm/ Sodium Chloride) 50 mls @ 100 mls/hr IV Q6H [facility] Last Admin: 07/05/22 08:15 Dose: 100 mls/hr Documented By: DOC Vancomycin HCl 1,500 mg/ (Sodium Chloride) 500 mls @ 333.333 mls/hr IV Q24H [facility] Last Infusion: 07/04/22 18:50 Dose: 0 mls/hr Documented By: ILA Melatonin (Melatonin 3 Mg Tablet) 6 mg PO BEDTIME PRN PRN Reason: Insomnia Metoprolol Tartrate (Metoprolol Tartrate 25 Mg Tablet) 25 mg PO BID [facility]; Protocol Last Admin: 07/05/22 08:16 Dose: 25 mg Documented By: ODC Ondansetron HCl (Ondansetron Hcl 4 Mg/2 Ml Vial) 4 mg IVPUSH Q8H PRN PRN Reason: Nausea and Vomiting Pharmacy Consult (Consult Rx Perform Med Rec) 1 each MISCELLANE ONCE PRN PRN Reason: Consult order Pharmacy Consult (Consult Rx Perform Med Rec) 1 each MISCELLANE ONCE PRN PRN Reason: Consult order Pharmacy Consult (Consult Rx Vancomycin Dosing) 1 each MISCELLANE DAILY PRN PRN Reason: Consult order Polyethylene Glycol (Polyethylene Glycol 3350 17 Gm Powd.Pack) 17 gm PO DAILY PRN PRN Reason: Constipation Sodium Chloride (0.9 % Sodium Chloride Flush 3 Ml Syringe) 3 ml IVFLUSH QSHIFT [facility] Last Admin: 07/05/22 08:15 Dose: 3 ml Documented By: DOC Labs CBC & Chem 7: 07/05/22 05:15 07/05/22 05:15 Labs: Laboratory Results - last 24 hr 07/05/22 07/05/22 05:15 05:15 MCV 87.3 MCH 27.1 MCHC 31.0 RDW 15.0 Plt Count 585 H MPV 8.9 L Absolute Nucleated RBC 0.000 Nucleated RBC % (auto) 0.0 Anion Gap 16 Estim Creat Clear Calc 79.7 Estimated GFR > 60 Fasting Glucose 91 Calcium 8.8 Microbiology Microbiology Results: Microbiology 07/03/22 14:52 Blood Culture - Preliminary Blood - Venous No growth after 24 hours. 07/03/22 14:52 Blood Culture - Preliminary Blood - Venous No growth after 24 hours. Assessment and Plan (1) Abscess, scrotum: Status: Acute Plan 82-year-old male with pertinent history of persistent atrial fibrillation on Eliquis who presented to the emergency department for evaluation of left scrotal swelling/bleeding. Sepsis due to hernia complicated by right scrotal abscess:? plan for OR 07/06/22 continue vanc and zosyn follow up cultures - negative so far holding eliquis Permanent atrial fibrillation: holding eliquis, continue cardizem Right inguinal hernia surgical evaluation Chronic normocytic anemia with thrombocytosis c/w inflammation DVT prophylaxis:? Mechanical.? Holding Eliquis as above Full code reason for continued hospitalization:iv abx/ surgical drainage planned Time Spent With Patient Time: Total time managing care of this patient today ____ minutes. Quality Stroke Does the patient have a stroke diagnosis?: No VTE Prior VTE?: No VTE Risk Level:: Medical - moderate - high VTE Device Contraindication: N/A - Device Ordered VTE Drug Contraindication: Treatment Not Indicated
[2022-07-05 15:50] VITALS: BP 142/73; PULSE 80; RESP 20; TEMP 36.7; O2SAT 97
[2022-07-05 17:02] LABS: Vancomycin Random 8.5 mcg/mL (15-20)
--- NOTE | 2022-07-05 17:26 | HE.PHANOTE ---
re tigist changing dose to 750 mg q12h, same auc but suspected trough 13.8. will get level after 2 doses for safety since scr is rising neto
[2022-07-05] MEDS: vancomycin HCL 750 MG in 0.9 % Sodium Chloride 250 ML 265 MG IV (17:35)
[2022-07-05 18:52] VITALS: BP 128/69; PULSE 86; RESP 20; TEMP 36.6; O2SAT 100
[2022-07-06] VITALS (15 sets, daily range): BP systolic 121–155; BP diastolic 62–86; PULSE 66–114; RESP 16–18; TEMP 36.1–37.1; O2SAT 96–100
[2022-07-06] MEDS: Piperacillin Sodium/Tazobactam 3.375 GM in 0.9 % Sodium Chloride 50 ML IV ×4 (01:38→20:04)
[2022-07-06 05:54] LABS: Hematocrit 33.3 % (42.0-52.0); Hemoglobin 10.3 g/dl (14.0-18.0); Mean Corpuscular HGB Conc 30.9 g/dl (31.0-36.0); Mean Corpuscular Hemoglobin 26.4 pg (27.0-33.0); Mean Corpuscular Volume 85.4 fL (80.0-98.0); Mean Platelet Volume 8.6 fL (9.4-12.4); Platelet Count 540 X10*3/uL (160-400); Red Cell Distribution Width 15.1 % (11.0-16.0); White Blood Count 11.5 X10*3/uL (4.8-10.8)
[2022-07-06] MEDS: vancomycin HCL 750 MG in 0.9 % Sodium Chloride 250 ML 265 MG IV (05:56)
[2022-07-06 06:17] LABS: Anion Gap 11 (12-20); Blood Urea Nitrogen 10 mg/dL (9-16); Calcium 8.8 mg/dL (8.4-10.2); Carbon Dioxide 29 mmol/L (22-29); Chloride 104 mmol/L (96-108); Creatinine Clr Calc Pharmacy 75.1; Estimated Glomerular Filt Rate > 60; Glucose Fasting 86 mg/dL (60-99); Potassium 3.8 mmol/L (3.3-5.1); Sodium 140 mmol/L (135-145)
--- NOTE | 2022-07-06 08:51 | P.PNIM_ITS ---
Subjective Subjective Date of Service: 07/06/22 Interval History: cc: scrotal abscess with bleeding interval history: no new complaints Cardiovascular Cardiovascular: Reports no additional cardiovascular complaints Respiratory Respiratory: Reports no additional respiratory complaints Physical Exam Vital Signs: Vital Signs: Last Vital Signs Temp 97.2 F 07/06/22 07:16 Pulse 92 07/06/22 07:16 Resp 18 07/06/22 07:16 BP 142/72 H 07/06/22 07:16 Pulse Ox 98 07/06/22 07:16 O2 Del Method 07/06/22 07:16 BMI result Body Mass Index 23.2 Const: General: cooperative, healthy appearing, comfortable and no acute distress Orientation/consciousness: patient oriented x3 HEENT: Face and sinus: Yes normal facial exam Mouth: moist mucous membranes Neck: Neck: Yes normal visual inspection, Yes full ROM and Yes trachea midline Chest: Chest palpation & inspection: normal inspection of the chest Resp: Effort & Inspection: normal respiratory effort, able to speak in complete sentences and no respiratory distress GI: Inspection: Yes normal to inspection Back/Spine/Pelvis: Cervical Spine: normal cervical lordosis Thoracic/Lumbar Spine: thoracic and lumbar spine normal to inspection Skin: General skin exam: no rashes or lesions noted Neuro: General: patient oriented x3, tone normal and moves all extremities Extrem: General: Yes normal to inspection and Yes capillary refill normal Objective Data Active Medications Acetaminophen (Acetaminophen 325 Mg Tablet) 650 mg PO Q6H PRN PRN Reason: Pain, Mild (Pain Scale 1-3) Diltiazem HCl (Diltiazem Hcl Cd 180 Mg Cap.Er.24h) 360 mg PO DAILY [facility]; Prot ocol Last Admin: 07/06/22 07:48 Dose: Not Given Documented By: EMILIA Non-Admin Reason: NPO Piperacillin Sod/Tazobactam (Sod 3.375 gm/ Sodium Chloride) 50 mls @ 100 mls/hr IV Q6H [facility] Last Infusion: 07/06/22 08:19 Dose: 0 mls/hr Documented By: EMILIA Vancomycin HCl 750 mg/ Sodium (Chloride) 265 mls @ 265 mls/hr IV Q12H [facility] Last Infusion: 07/06/22 07:32 Dose: 0 mls/hr Documented By: EMILIA Melatonin (Melatonin 3 Mg Tablet) 6 mg PO BEDTIME PRN PRN Reason: Insomnia Metoprolol Tartrate (Metoprolol Tartrate 25 Mg Tablet) 25 mg PO BID [facility]; Protocol Last Admin: 07/06/22 07:48 Dose: Not Given Documented By: EMILIA Non-Admin Reason: NPO Ondansetron HCl (Ondansetron Hcl 4 Mg/2 Ml Vial) 4 mg IVPUSH Q8H PRN PRN Reason: Nausea and Vomiting Pharmacy Consult (Consult Rx Perform Med Rec) 1 each MISCELLANE ONCE PRN PRN Reason: Consult order Pharmacy Consult (Consult Rx Perform Med Rec) 1 each MISCELLANE ONCE PRN PRN Reason: Consult order Pharmacy Consult (Consult Rx Vancomycin Dosing) 1 each MISCELLANE DAILY PRN PRN Reason: Consult order Polyethylene Glycol (Polyethylene Glycol 3350 17 Gm Powd.Pack) 17 gm PO DAILY PRN PRN Reason: Constipation Sodium Chloride (0.9 % Sodium Chloride Flush 3 Ml Syringe) 3 ml IVFLUSH QSHIFT [facility] Last Admin: 07/05/22 20:38 Dose: 3 ml Documented By: MANPREET Labs CBC & Chem 7: 07/06/22 05:22 07/06/22 05:22 Labs: Laboratory Results - last 24 hr 07/05/22 07/06/22 07/06/22 16:26 05:22 05:22 MCV 85.4 MCH 26.4 L MCHC 30.9 L RDW 15.1 Plt Count 540 H MPV 8.6 L Absolute Nucleated RBC 0.000 Nucleated RBC % (auto) 0.0 Anion Gap 11 L Estim Creat Clear Calc 75.1 Estimated GFR > 60 Fasting Glucose 86 Calcium 8.8 Random Vancomycin 8.5 L Microbiology Microbiology Results: Microbiology 07/03/22 14:52 Blood Culture - Preliminary Blood - Venous No growth after 48 hours. 07/03/22 14:52 Blood Culture - Preliminary Blood - Venous No growth after 48 hours. Assessment and Plan (1) Abscess, scrotum: Status: Acute Plan 82-year-old male with pertinent history of persistent atrial fibrillation on Eliquis who presented to the emergency department for evaluation of left scrotal swelling/bleeding. Sepsis due to hernia complicated by right scrotal abscess:? plan for OR today 07/06/22 continue vanc and zosyn follow up cultures - negative so far holding eliquis Permanent atrial fibrillation: holding eliquis, continue cardizem Right inguinal hernia surgical evaluation Chronic normocytic anemia with thrombocytosis c/w inflammation DVT prophylaxis:? Mechanical.? Holding Eliquis as above Full code reason for continued hospitalization:iv abx/ surgical drainage planned Time Spent With Patient Time: Total time managing care of this patient today ____ minutes. Quality Stroke Does the patient have a stroke diagnosis?: No VTE Prior VTE?: No VTE Risk Level:: Medical - moderate - high VTE Device Contraindication: N/A - Device Ordered VTE Drug Contraindication: Treatment Not Indicated
--- NOTE | 2022-07-06 11:22 | P.CONAN_ITS ---
[facility] Active Problems Active Problems: All Active Problems (Updated 07/03/22 @ 17:08 by Tuyet Apple NP) Abscess, scrotum (Acute) Leukocytosis (Acute) Persistent atrial fibrillation (Acute) Essential hypertension (Acute) Right inguinal hernia (Acute) Atrial fibrillation with rapid ventricular response (Acute) Past Medical History Medical History Persistent atrial fibrillation Right inguinal hernia Family History Family History Mother Breast cancer Surgical History Surgical History No pertinent past surgical history Social History Social History Household Members: Spouse Housing: House Do you presently have visiting nurse or other home services: No Alcohol intake: never Patient Tobacco Use Status: Never used Tobacco e-Cigarette/Vaping Use: Never Used service: No Current occupational status: [employer] Allergies Allergy/AdvReac Type Severity Reaction Status Date / Time No Known Allergies Allergy Verified 07/06/22 12:25 Active Medications: Current Medications Acetaminophen (Acetaminophen 325 Mg Tablet) 650 mg PO Q6H PRN PRN Reason: Pain, Mild (Pain Scale 1-3) Diltiazem HCl (Diltiazem Hcl Cd 180 Mg Cap.Er.24h) 360 mg PO DAILY [facility]; Protocol Last Admin: 07/06/22 07:48 Dose: Not Given Piperacillin Sod/Tazobactam (Sod 3.375 gm/ Sodium Chloride) 50 mls @ 100 mls/hr IV Q6H [facility] Last Infusion: 07/06/22 08:19 Dose: Infused Vancomycin HCl 750 mg/ Sodium (Chloride) 265 mls @ 265 mls/hr IV Q12H [facility] Last Infusion: 07/06/22 07:32 Dose: Infused Melatonin (Melatonin 3 Mg Tablet) 6 mg PO BEDTIME PRN PRN Reason: Insomnia Metoprolol Tartrate (Metoprolol Tartrate 25 Mg Tablet) 25 mg PO BID [facility]; Protocol Last Admin: 07/06/22 07:48 Dose: Not Given Ondansetron HCl (Ondansetron Hcl 4 Mg/2 Ml Vial) 4 mg IVPUSH Q8H PRN PRN Reason: Nausea and Vomiting Pharmacy Consult (Consult Rx Perform Med Rec) 1 each MISCELLANE ONCE PRN PRN Reason: Consult order Pharmacy Consult (Consult Rx Perform Med Rec) 1 each MISCELLANE ONCE PRN PRN Reason: Consult order Pharmacy Consult (Consult Rx Vancomycin Dosing) 1 each MISCELLANE DAILY PRN PRN Reason: Consult order Polyethylene Glycol (Polyethylene Glycol 3350 17 Gm Powd.Pack) 17 gm PO DAILY PRN PRN Reason: Constipation Sodium Chloride (0.9 % Sodium Chloride Flush 3 Ml Syringe) 3 ml IVFLUSH QSHIFT [facility] Last Admin: 07/05/22 20:38 Dose: 3 ml Home Medications Medication Instructions Recorded Confirmed Last Taken Type multivitamin 1 tab PO DAILY 02/18/22 07/03/22 07/03/22 History acetaminophen 325 mg tablet 650 mg PO Q6H PRN Pain 07/03/22 07/03/22 07/03/22 History (Tylenol) polyethylene glycol 3350 17 gram 17 g PO DAILY PRN Constipation 07/03/22 07/03/22 Unknown History oral powder packet Exam Exam Date and Time: July 06, 2022 1122 Height,Weight and Vital Signs: Height 6 ft 1 in Weight 79.8 kg Last Vital Signs Temp 97.2 F 07/06/22 07:16 Pulse 92 07/06/22 07:16 Resp 18 07/06/22 07:16 BP 142/72 H 07/06/22 07:16 Pulse Ox 98 07/06/22 07:16 O2 Del Method 07/06/22 07:16 Pertinent Lab Results Pertinent Lab Results: Laboratory Tests 07/03/22 07/03/22 07/03/22 14:51 14:51 14:51 WBC 21.6 H RBC 3.77 L Hgb 10.1 L Hct 32.9 L MCV 87.3 MCH 26.8 L MCHC 30.7 L RDW 15.0 Plt Count 485 H D MPV 9.0 L Immature Gran % (Auto) 0.6 H Neut % (Auto) 86.6 H Lymph % (Auto) 6.3 L Ows[place] % (Auto) 5.6 Eos % (Auto) 0.6 Baso % (Auto) 0.3 Lymph # (Auto) 1.4 Owsley # (Auto) 1.2 Eos # (Auto) 0.1 Baso # (Auto) 0.1 Abs Immat Gran (auto) 0.12 H Absolute Neuts (auto) 18.7 H Absolute Nucleated RBC 0.000 Nucleated RBC % (auto) 0.0 PT 25.8 H INR 2.2 H Sodium 137 Potassium 3.8 Chloride 101 Carbon Dioxide 28 Anion Gap 12 BUN 10 Creatinine 0.76 Estim Creat Clear Calc 85.5 Estimated GFR > 60 Random Glucose 114 Fasting Glucose Lactic Acid Calcium 8.6 D Total Bilirubin 0.6 Direct Bilirubin 0.4 AST 15 ALT 12 Alkaline Phosphatase 125 H D Total Protein 7.2 Albumin 2.9 L Urine Color Urine Appearance Urine pH Ur Specific [place] Urine Protein Urine Glucose (UA) Urine Ketones Urine Blood Urine Nitrite Ur Leukocyte Esterase Urine RBC Urine WBC Ur Squamous Epith Cells Urine Bacteria Hyaline Casts Random Vancomycin COVID-19 (YUSEF) COVID-19 [facility] Com 07/03/22 07/03/22 07/03/22 14:51 18:01 18:01 WBC RBC Hgb Hct MCV MCH MCHC RDW Plt Count MPV Immature Gran % (Auto) Neut % (Auto) Lymph % (Auto) Ows[place] % (Auto) Eos % (Auto) Baso % (Auto) Lymph # (Auto) Ows[place] # (Auto) Eos # (Auto) Baso # (Auto) Abs Immat Gran (auto) Absolute Neuts (auto) Absolute Nucleated RBC Nucleated RBC % (auto) PT INR Sodium Potassium Chloride Carbon Dioxide Anion Gap BUN Creatinine Estim Creat Clear Calc Estimated GFR Random Glucose Fasting Glucose Lactic Acid 1.7 Calcium Total Bilirubin Direct Bilirubin AST ALT Alkaline Phosphatase Total Protein Albumin Urine Color Yellow Urine Appearance Clear Urine pH 7.0 Ur Specific [place] >= 1.030 H Urine Protein Negative Urine Glucose (UA) Negative Urine Ketones Negative Urine Blood Trace H Urine Nitrite Negative Ur Leukocyte Esterase Negative Urine RBC 0-2 Urine WBC 0-5 Ur Squamous Epith Cells 0-2 Urine Bacteria None Seen Hyaline Casts 0-2 Random Vancomycin COVID-19 (YUSEF) Negative COVID-19 Clin Com See Note 07/04/22 07/04/22 07/04/22 05:41 05:41 05:41 WBC 14.0 H RBC 3.57 L Hgb 9.6 L Hct 31.2 L MCV 87.4 MCH 26.9 L MCHC 30.8 L RDW 14.9 Plt Count 519 H MPV 9.4 Immature Gran % (Auto) 0.6 H Neut % (Auto) 78.5 H Lymph % (Auto) 13.4 L Ows[place] % (Auto) 5.6 Eos % (Auto) 1.3 Baso % (Auto) 0.6 Lymph # (Auto) 1.9 Owsley # (Auto) 0.8 Eos # (Auto) 0.2 Baso # (Auto) 0.1 Abs Immat Gran (auto) 0.09 H Absolute Neuts (auto) 11.0 H Absolute Nucleated RBC 0.000 Nucleated RBC % (auto) 0.0 PT 20.8 H INR 1.8 H Sodium 140 Potassium 4.2 Chloride 104 Carbon Dioxide 27 Anion Gap 13 BUN 7 L Creatinine 0.73 Estim Creat Clear Calc 89.5 Estimated GFR > 60 Random Glucose 87 Fasting Glucose Lactic Acid Calcium 8.5 Total Bilirubin Direct Bilirubin AST ALT Alkaline Phosphatase Total Protein Albumin Urine Color Urine Appearance Urine pH Ur Specific [place] Urine Protein Urine Glucose (UA) Urine Ketones Urine Blood Urine Nitrite Ur Leukocyte Esterase Urine RBC Urine WBC Ur Squamous Epith Cells Urine Bacteria Hyaline Casts Random Vancomycin COVID-19 (YUSEF) COVID-19 [facility] 07/05/22 07/05/22 07/05/22 05:15 05:15 16:26 WBC 11.3 H RBC 3.95 L Hgb 10.7 L Hct 34.5 L MCV 87.3 MCH 27.1 MCHC 31.0 RDW 15.0 Plt Count 585 H MPV 8.9 L Immature Gran % (Auto) Neut % (Auto) Lymph % (Auto) [place]ws[place] % (Auto) Eos % (Auto) Baso % (Auto) Lymph # (Auto) [place] # (Auto) Eos # (Auto) Baso # (Auto) Abs Immat Gran (auto) Absolute Neuts (auto) Absolute Nucleated RBC 0.000 Nucleated RBC % (auto) 0.0 PT INR Sodium 141 Potassium 4.1 Chloride 103 Carbon Dioxide 26 Anion Gap 16 BUN 10 Creatinine 0.82 Estim Creat Clear Calc 79.7 Estimated GFR > 60 Random Glucose Fasting Glucose 91 Lactic Acid Calcium 8.8 Total Bilirubin Direct Bilirubin AST ALT Alkaline Phosphatase Total Protein Albumin Urine Color Urine Appearance Urine pH Ur Specific [place] Urine Protein Urine Glucose (UA) Urine Ketones Urine Blood Urine Nitrite Ur Leukocyte Esterase Urine RBC Urine WBC Ur Squamous Epith Cells Urine Bacteria Hyaline Casts Random Vancomycin 8.5 L COVID-19 (YUSEF) COVID-19 [facility] 07/06/22 07/06/22 05:22 05:22 WBC 11.5 H RBC 3.90 L Hgb 10.3 L Hct 33.3 L MCV 85.4 MCH 26.4 L MCHC 30.9 L RDW 15.1 Plt Count 540 H MPV 8.6 L Immature Gran % (Auto) Neut % (Auto) Lymph % (Auto) O[place] % (Auto) Eos % (Auto) Baso % (Auto) Lymph # (Auto) [place] # (Auto) Eos # (Auto) Baso # (Auto) Abs Immat Gran (auto) Absolute Neuts (auto) Absolute Nucleated RBC 0.000 Nucleated RBC % (auto) 0.0 PT INR Sodium 140 Potassium 3.8 Chloride 104 Carbon Dioxide 29 Anion Gap 11 L BUN 10 Creatinine 0.87 Estim Creat Clear Calc 75.1 Estimated GFR > 60 Random Glucose Fasting Glucose 86 Lactic Acid Calcium 8.8 Total Bilirubin Direct Bilirubin AST ALT Alkaline Phosphatase Total Protein Albumin Urine Color Urine Appearance Urine pH Ur Specific [place] Urine Protein Urine Glucose (UA) Urine Ketones Urine Blood Urine Nitrite Ur Leukocyte Esterase Urine RBC Urine WBC Ur Squamous Epith Cells Urine Bacteria Hyaline Casts Random Vancomycin COVID-19 (YUSEF) COVID-19 Clin Com Airway Mallampati Class: III (Long neck) Neck ROM: Full Loose/Missing/Broken Teeth: No Heart: RRR Lungs: CTA Assessment and Plan Assessment Anesthesia Assessment: Anesthesia Plan Discussed Final Anesthetic Review NPO: Yes ASA Class: III Final Preanesthetic Review: Meds/Allgs Chart Reviewed, Consent Obtained/Reviewed and Anes Risks/Benef Reviewed Patient Risk: Intermediate Procedure Risk: Low Anesthetic Plan Anesthetic Plan: GA Disposition: Standard PACU
--- NOTE | 2022-07-06 13:16 | MHC.CM.PN ---
PER MD ROUNDS, PT NOT MEDICALLY CLEARED, PLAN TO GO TO OR TODAY DCP REMAINS HOME NO SERVICES FAMILY TO TRANSPORT
--- NOTE | 2022-07-06 13:20 | P.HPSUR_ITS ---
Pre-Procedural Eval Section A Date of Service: 07/06/22 The patient is an INPATIENT: Yes Changes since office visit: No Cold of Flu in the past 2 weeks, No New Medical Problems, No Changes in Medication and No Patient answered all questions The History & Physical has been completed within 30 days and I have reviewed it.: Yes Section B Chief Complaint: Scrotal Abscess Details of Present Illness: Right scrotal abscess drainage Relevant Family History (Specify if Yes): No Relevant Social History: None Present Medications: see Short Stay Collaborative assessment Medical History: Significant History History of Previous Operations: No relevant previous surgery Allergies: Allergies Allergy/AdvReac Type Severity Reaction Status Date / Time No Known Allergies Allergy Verified 07/06/22 12:25 Review of Systems Sugical H&P ROS: Negative: Constitution, Cardiovascular, Respiratory, Neurological, Psychiatric, Hem-Onc, Allergic/Immunologic, Gastrointestinal, Heather tourinary, Musculoskeletal, Integumentary, Endocrine and Eyes/Ears/Nose/Throat Exam Surgical H&P Exam: Normal: HEENT, Normal: Heart, Normal: Lungs, Normal: Extremities, Normal: Abdomen, Normal: Skin and Normal: Neurological Plan Diagnosis/Plan: Unchanged ( right scrotal abscess drainage in setting of large hernia) I have reviewed the history and physical and performed a pertinent physical examination on my patient. No changes have occurred unless specified. Time Spent With Patient Time: Total time managing care of this patient today ____ minutes.
--- NOTE | 2022-07-06 13:28 | PC.NURSE ---
patient had ring to left hand and did not want to remove. jewelry waiver signed and in chart. belongings paperwork signed and in chart.
--- NOTE | 2022-07-06 13:55 | W.PM.OPN ---
Operative Note Operative Note Date of Service: 07/06/22 Narrative: PreOperative Diagnosis: right scrotal abscess Post Operative Diagnosis: right scrotal abscess Procedure: abscess drainage and packing Surgeon: Dr Frank Lima Anesthesia: general Indications for procedure: large right inguinal hernia with small bowel. Present with discharge from midline scrotal skin. CT scan showed 10-15 cm medial right scrotal abscess. On anticoagulation at time of presentation. This is been held for 3 days. Plan for abscess drainage with packing. Procedure: After informed consent was verified the patient was brought to the operating room and placed in a supine position. Anesthesia was administered per protocol. The patient was prepped and draped in a sterile fashion. Safety pause time-out was performed. Antibiotics being given. The midline of the scrotum had a area of separation skin. This was probed using a small clamp. We are with the open the skin and advanced the clamp into the area of the abscess both superiorly and in fairly but staying medial to the own year. The skin separation was then expanded to approximately 1/2 inches using a sharp blade. The abscess was fully drained with clot that was obviously infected. The abscess was then irrigated clear with saline containing vancomycin. Dry sponge was placed in order to debride the internal wall of the abscess. This was removed. After drainage of the abscess packing was placed using Kerlix sponge soaked in saline with think mycin. He tolerated the procedure well and was extubated in operating room before transferred to recovery area. Pathology: None Drains: packing as above
[2022-07-06] MEDS: 0.9 % Sodium Chloride Flush 3 ML SYRINGE IVFLUSH ×2 (14:45→20:09)
[2022-07-06 16:32] LABS: Vancomycin Random 11.1 mcg/mL (15-20)
[2022-07-06] MEDS: vancomycin HCL 1,000 MG in 0.9 % Sodium Chloride 250 ML 265 MG IV (18:09)
--- NOTE | 2022-07-06 18:11 | HE.PHANOTE ---
JALILO TROUGH 11.1, CHANGED DOSE TO 1 GM Q12H FOR EXPECTED AUC OF 537
[2022-07-06] MEDS: Metoprolol Tartrate 25 MG TABLET PO (20:14)
[2022-07-07] VITALS (8 sets, daily range): BP systolic 114–134; BP diastolic 61–85; PULSE 71–97; RESP 16–18; TEMP 36–36.9; O2SAT 93–99
[2022-07-07] MEDS: Piperacillin Sodium/Tazobactam 3.375 GM in 0.9 % Sodium Chloride 50 ML IV ×4 (02:07→20:31)
[2022-07-07] MEDS: vancomycin HCL 1,000 MG in 0.9 % Sodium Chloride 250 ML 265 MG IV ×2 (05:40→17:51)
[2022-07-07 06:10] LABS: Hemoglobin 10.2 g/dl (14.0-18.0); Mean Corpuscular HGB Conc 30.9 g/dl (31.0-36.0); Mean Corpuscular Hemoglobin 26.8 pg (27.0-33.0); Mean Corpuscular Volume 86.8 fL (80.0-98.0); Mean Platelet Volume 8.7 fL (9.4-12.4); Platelet Count 544 X10*3/uL (160-400); Red Cell Distribution Width 15.1 % (11.0-16.0); White Blood Count 10.1 X10*3/uL (4.8-10.8)
[2022-07-07 06:46] LABS: Anion Gap 12 (12-20); Blood Urea Nitrogen 10 mg/dL (9-16); Calcium 8.6 mg/dL (8.4-10.2); Carbon Dioxide 29 mmol/L (22-29); Chloride 106 mmol/L (96-108); Creatinine Clr Calc Pharmacy 77.8; Estimated Glomerular Filt Rate > 60; Glucose Fasting 76 mg/dL (60-99); Potassium 4.1 mmol/L (3.3-5.1); Sodium 143 mmol/L (135-145)
--- NOTE | 2022-07-07 08:02 | P.PNIM_ITS ---
Subjective Subjective Date of Service: 07/07/22 Interval History: cc: scrotal abscess with bleeding interval history: no new complaints Cardiovascular Cardiovascular: Reports no additional cardiovascular complaints Respiratory Respiratory: Reports no additional respiratory complaints Physical Exam Vital Signs: Vital Signs: Last Vital Signs Temp 96.8 F 07/07/22 07:00 Pulse 97 07/07/22 07:00 Resp 16 07/07/22 07:00 BP 124/85 07/07/22 07:00 Pulse Ox 97 07/07/22 07:00 O2 Del Method 07/07/22 07:00 O2 Flow Rate 4 07/06/22 14:11 BMI result Body Mass Index 23.2 Const: General: cooperative, healthy appearing, comfortable and no acute distress Orientation/consciousness: patient oriented x3 HEENT: Face and sinus: Yes normal facial exam Mouth: moist mucous membranes Neck: Neck: Yes normal visual inspection, Yes full ROM and Yes trachea midline Chest: Chest palpation & inspection: normal inspection of the chest Resp: Effort & Inspection: normal respiratory effort, able to speak in complete sentences and no respiratory distress GI: Inspection: Yes normal to inspection Back/Spine/Pelvis: Cervical Spine: normal cervical lordosis Thoracic/Lumbar Spine: thoracic and lumbar spine normal to inspection Skin: General skin exam: no rashes or lesions noted Neuro: General: patient oriented x3, tone normal and moves all extremities Extrem: General: Yes normal to inspection and Yes capillary refill normal Objective Data Active Medications Acetaminophen (Acetaminophen 325 Mg Tablet) 650 mg PO Q6H PRN PRN Reason: Pain, Mild (Pain Scale 1-3) Acetaminophen (Acetaminophen 325 Mg Tablet) 650 mg PO ONCE PRN PRN Reason: Pain, Mild (Pain Scale 1-3) Albuterol Sulfate (Albuterol Sulfate (0.083%) 2.5 Mg/3 Ml Vial.Neb) 2.5 mg INHALE ONCE PRN PRN Reason: Wheezing Diltiazem HCl (Diltiazem Hcl Cd 180 Mg Cap.Er.24h) 360 mg PO DAILY [facility]; Protocol Last Admin: 07/06/22 07:48 Dose: Not Given Documented By: EMILIA Non-Admin Reason: NPO Fentanyl (Fentanyl Citrate/Pf 100 Mcg/2 Ml Vial) 25 mcg IVPUSH Q5M PRN; Pro tocol PRN Reason: Pain, Moderate (Pain Scale 4-6 Piperacillin Sod/Tazobactam (Sod 3.375 gm/ Sodium Chloride) 50 mls @ 100 mls/hr IV Q6H [facility] Last Infusion: 07/07/22 02:49 Dose: 0 mls/hr Documented By: MANPREET Vancomycin HCl 1,000 mg/ (Sodium Chloride) 270 mls @ 265 mls/hr IV Q12H [facility] Last Infusion: 07/07/22 07:17 Dose: 265 mls/hr Documented By: TAMIKA Melatonin (Melatonin 3 Mg Tablet) 6 mg PO BEDTIME PRN PRN Reason: Insomnia Metoprolol Tartrate (Metoprolol Tartrate 25 Mg Tablet) 25 mg PO BID [facility]; Protocol Last Admin: 07/06/22 20:14 Dose: 25 mg Documented By: MANPREET Ondansetron HCl (Ondansetron Hcl 4 Mg/2 Ml Vial) 4 mg IVPUSH Q8H PRN PRN Reason: Nausea and Vomiting Ondansetron HCl (Ondansetron Hcl 4 Mg/2 Ml Vial) 4 mg IVPUSH ONCE PRN PRN Reason: Nausea and Vomiting Oxycodone HCl (Oxycodone Hcl Immed Release 5 Mg Tablet) 5 mg PO ONCE PRN PRN Reason: Pain, Severe (Pain Scale 7-10) Pharmacy Consult (Consult Rx Perform Med Rec) 1 each MISCELLANE ONCE PRN PRN Reason: Consult order Pharmacy Consult (Consult Rx Perform Med Rec) 1 each MISCELLANE ONCE PRN PRN Reason: Consult order Pharmacy Consult (Consult Rx Vancomycin Dosing) 1 each MISCELLANE DAILY PRN PRN Reason: Consult order Polyethylene Glycol (Polyethylene Glycol 3350 17 Gm Powd.Pack) 17 gm PO DAILY PRN PRN Reason: Constipation Sodium Chloride (0.9 % Sodium Chloride Flush 3 Ml Syringe) 3 ml IVFLUSH QSHIFT [facility] Last Admin: 07/06/22 20:09 Dose: 3 ml Documented By: MANPREET Labs CBC & Chem 7: 07/07/22 05:17 07/07/22 05:17 Labs: Laboratory Results - last 24 hr 07/06/22 07/07/22 07/07/22 15:55 05:17 05:17 MCV 86.8 MCH 26.8 L MCHC 30.9 L RDW 15.1 Plt Count 544 H MPV 8.7 L Absolute Nucleated RBC 0.000 Nucleated RBC % (auto) 0.0 Anion Gap 12 Estim Creat Clear Calc 77.8 Estimated GFR > 60 Fasting Glucose 76 Calcium 8.6 Random Vancomycin 11.1 L Assessment and Plan (1) Abscess, scrotum: Status: Acute Plan 82-year-old male with pertinent history of persistent atrial fibrillation on Eliquis who presented to the emergency department for evaluation of left scrotal swelling/bleeding. Sepsis due to hernia complicated by right scrotal abscess:? s/p I and D 07/06/22 continue vanc and zosyn follow up cultures - negative so far holding eliquis Permanent atrial fibrillation: holding eliquis, continue cardizem Right inguinal hernia surgical evaluation Chronic normocytic anemia with thrombocytosis c/w inflammation DVT prophylaxis:? Mechanical.? Holding Eliquis as above Full code reason for continued hospitalization:iv abx Time Spent With Patient Time: Total time managing care of this patient today ____ minutes. Quality Stroke Does the patient have a stroke diagnosis?: No VTE Prior VTE?: No VTE Risk Level:: Medical - moderate - high VTE Device Contraindication: N/A - Device Ordered VTE Drug Contraindication: Treatment Not Indicated
[2022-07-07] MEDS: 0.9 % Sodium Chloride Flush 3 ML SYRINGE IVFLUSH ×3 (08:04→20:30)
[2022-07-07] MEDS: dilTIAZem HCL CD 180 MG CAP.ER.24H 360 MG PO (08:07)
[2022-07-07] MEDS: Metoprolol Tartrate 25 MG TABLET PO ×2 (08:07→20:30)
--- NOTE | 2022-07-07 10:25 | HO.POSTANES ---
Post Anesthesia Evaluation Post Anesthesia Evaluation Vital Signs: Vital Signs Temp Pulse Resp BP Pulse Ox O2 Del Method 07/07/22 08:00 96.8 F 97 16 125/85 97 Room Air 07/07/22 07:00 96.8 F 97 16 124/85 97 Room Air 07/07/22 03:32 98.5 F 90 16 129/79 98 Room Air 07/06/22 23:32 16 07/06/22 23:00 16 07/06/22 23:42 97 F 80 16 136/80 98 Room Air Anesthesia: General Mental Status: Awake Pain Control: Satisfactory Nausea/Vomiting: None Hydration: Adequate Anesthesia-Related Issues: No Anes. Related Issues
[2022-07-07 16:38] LABS: Vancomycin Trough 15.9 mcg/mL (10.0-20.0)
[2022-07-08] MEDS: Piperacillin Sodium/Tazobactam 3.375 GM in 0.9 % Sodium Chloride 50 ML IV ×2 (02:37→07:29)
[2022-07-08 03:00] VITALS: BP 126/79; PULSE 63; RESP 18; TEMP 36.6; O2SAT 95
[2022-07-08] MEDS: vancomycin HCL 1,000 MG in 0.9 % Sodium Chloride 250 ML 265 MG IV (05:32)
[2022-07-08 06:28] LABS: Hematocrit 32.2 % (42.0-52.0); Hemoglobin 9.9 g/dl (14.0-18.0); Mean Corpuscular HGB Conc 30.7 g/dl (31.0-36.0); Mean Corpuscular Hemoglobin 26.9 pg (27.0-33.0); Mean Corpuscular Volume 87.5 fL (80.0-98.0); Mean Platelet Volume 8.8 fL (9.4-12.4); Platelet Count 513 X10*3/uL (160-400); Red Blood Count 3.68 X10*6/uL (4.60-5.80); Red Cell Distribution Width 15.2 % (11.0-16.0); White Blood Count 10.6 X10*3/uL (4.8-10.8)
[2022-07-08 06:57] LABS: Anion Gap 12 (12-20); Blood Urea Nitrogen 10 mg/dL (9-16); Calcium 8.4 mg/dL (8.4-10.2); Carbon Dioxide 28 mmol/L (22-29); Chloride 106 mmol/L (96-108); Estimated Glomerular Filt Rate > 60; Glucose Fasting 78 mg/dL (60-99); Potassium 4.2 mmol/L (3.3-5.1); Sodium 142 mmol/L (135-145)
[2022-07-08 07:00] VITALS: BP 131/75; PULSE 71; RESP 17; TEMP 36.4; O2SAT 98
[2022-07-08] MEDS: dilTIAZem HCL CD 180 MG CAP.ER.24H 360 MG PO (07:30)
[2022-07-08] MEDS: Metoprolol Tartrate 25 MG TABLET PO (07:30)
[2022-07-08] MEDS: 0.9 % Sodium Chloride Flush 3 ML SYRINGE IVFLUSH (07:30)
--- NOTE | 2022-07-08 09:34 | P.DS_ITS ---
DS: Providers Provider Date of Service: 07/08/22 Date of admission: 07/03/22 19:04 Primary care physician: Myla Mckenna NP Consults: 07/03/22 18:22 Consult to Urology Stat Consulting Provider: Frank Lima Reason for consultation: scrotal abscess 07/04/22 07:58 Consult to General Surgery Routine Consulting Provider: Armando Soto Reason for consultation: incarcerated hernia with scrotal abscess DS: Diagnosis Discharge Diagnosis (1) Abscess, scrotum: Status: Acute DS: Summary Hospital Course Hospital Course: from initial hpi: Chief Complaint: Scrotal swelling This is a 82-year-old male with pertinent history of persistent atrial fibrillation on Eliquis who presents to the emergency department for evaluation of scrotal swelling.? Patient states he has had inguinal hernia for a few months now.? No pain.? Over the last few days he has noticed scrotal swelling which started bleeding on the day of presentation.? Patient states the swelling has been progressive and without any relieving factors.? Denies fever, chills, nausea, vomiting, chest discomfort, palpitations, shortness of breath, abdominal pain, changes in urinary or bowel habits. In the emergency department, scrotal abscess was noted and noted urology was consulted who requested admission and will evaluate the patient in a.m. hospital course: patient was admitted for sepsis due to hernia complicated by right scrotal abscess. he was treated with vanc and zosyn. cultures were negative. underwent I and D 07/06/22. will be discharged on bactrim for 7 more days, should get follow up bmp in 3-4 days. for permanent afib was continued on cardizem, will restart eliquis. for right inguinal hernia will follow up outpatient with surgery. for chronic microcytic anemia with thrombocytosis, this was consistent with chronic inflammation. pateint is feeling better and will be discharged home. Time Spent with Patient Time attestation: Total time managing care of this patient today ____ minutes. Discharge coordination time: Greater than 30 minutes Quality: Safe Use of Opioids Does Pt have an Active Cancer Diagnosis on the Problem List?: No Quality: Stroke Does the patient have a stroke diagnosis?: No Physical Exam Vital Signs: Vital Signs: Last Vital Signs Temp 97.6 F 07/08/22 07:00 Pulse 71 07/08/22 07:00 Resp 17 07/08/22 07:00 BP 131/75 07/08/22 07:00 Pulse Ox 98 07/08/22 07:00 O2 Del Method 07/08/22 07:00 O2 Flow Rate 4 07/06/22 14:11 BMI result Body Mass Index 23.2 Const: General: cooperative, healthy appearing, comfortable and no acute distress Orientation/consciousness: patient oriented x3 HEENT: Face and sinus: Yes normal facial exam Mouth: moist mucous membranes Neck: Neck: Yes normal visual inspection, Yes full ROM and Yes trachea midline Chest: Chest palpation & inspection: normal inspection of the chest Resp: Effort & Inspection: normal respiratory effort, able to speak in complete sentences and no respiratory distress GI: Inspection: Yes normal to inspection Back/Spine/Pelvis: Cervical Spine: normal cervical lordosis Thoracic/Lumbar Spine: thoracic and lumbar spine normal to inspection Skin: General skin exam: no rashes or lesions noted Neuro: General: patient oriented x3, tone normal and moves all extremities Extrem: General: Yes normal to inspection and Yes capillary refill normal DS: Data Data Completed and Pending Labs on day of discharge: Laboratory Results - last 24 hr 07/07/22 07/08/22 07/08/22 16:00 05:19 05:19 WBC 10.6 RBC 3.68 L Hgb 9.9 L Hct 32.2 L MCV 87.5 MCH 26.9 L MCHC 30.7 L RDW 15.2 Plt Count 513 H MPV 8.8 L Absolute Nucleated RBC 0.000 Nucleated RBC % (auto) 0.0 Sodium 142 Potassium 4.2 Chloride 106 Carbon Dioxide 28 Anion Gap 12 BUN 10 Creatinine 0.92 Estim Creat Clear Calc 71.0 Estimated GFR > 60 Fasting Glucose 78 Calcium 8.4 Vancomycin Trough 15.9 Preliminary micro results at discharge 07/03/22 14:52 Blood Culture - Preliminary Blood - Venous No growth after 48 hours. 07/03/22 14:52 Blood Culture - Preliminary Blood - Venous No growth after 48 hours. Discharge Plan Discharge Anticipated Discharge Date/Time: 07/08/22 09:31 Patient Disposition: Home Health Service Discharge Diagnosis: scrotal abscess Referrals: Frank Lima MD [Physician] - 1 Week Armando Soto MD [Physician] - 1 Week Myla Mckenna NP [Primary Care Provider] - 1 Week Discharge Medications: New sulfamethoxazole-trimethoprim [Bactrim DS] 800-160 mg tablet 1 tab PO BID Qty: 14 0RF Continued Eliquis 5 mg tablet 5 mg PO BID 30 Days Qty: 60 5RF diltiazem HCl 120 mg capsule,extended release 24hr 360 mg PO DAILY 30 Days Qty: 90 5RF multivitamin Tablet 1 tab PO DAILY polyethylene glycol 3350 17 gram powder in packet 17 g PO DAILY PRN (Reason: Constipation) acetaminophen [Tylenol] 325 mg Tablet 650 mg PO Q6H PRN (Reason: Pain) metoprolol tartrate 25 mg tablet 25 mg PO BID 90 Days Qty: 180 3RF Discharge Orders: Discharge Order (Routine); Ordered 07/08/22 Ordered By: Miguel Angel Garrison Diet: Advance to usual diet Activity on Discharge: As tolerated Stand Alone Forms: Patient Portal Discharge page Other Ambulatory Orders: Basic Metabolic Panel (Routine) Timeframe: 3 Days Facility: [facility] - Location: Laboratory Ordered By: Miguel Angel Garrison Care Plan Goals: recovery Health Concerns: scrotal abscess Plan of Treatment: 7 days bactrim, DSD to scrotum, follow up gu and surgery, labs in 3-4 days Assessment: see above
--- NOTE | 2022-07-08 09:38 | W.MHC.F2F ---
Service Date Service Date: 07/08/22 Encounter Date of encounter: 07/08/22 Reasons for Services Signs and symptoms assessed: weakness Reason for retirement: medication management, medication treatment, teach disease management and GI/ assessment (abd pad dressing, bmp in 3-4 days after discharge) Homebound: Leaving the home is medically contraindicated at this time without the asist of a device and/or another person due th the listed conditions above and below. Reason homebound: unsteady gait / fall risk Certification: Based on the above findings, I certify that this patient is confined to the home and needs intermittent retirement care, physical therapy and/or speech therapy, or continues to need occupational therapy. The patient is under my care, and I have initiated the establishment of the plan of care. The patient will be followed by a physician who will periodically review the plan of care. Time Spent With Patient Time: Total time managing care of this patient today ____ minutes.
--- NOTE | 2022-07-08 10:07 | MHC.CM.PN ---
PT MEDICALLY CLEARED FOR D/C HOME W/NEW [facility] FOR SN AND ORAL ABX, PT'S FOR TRANSPORT
[2022-07-08 12:00] VITALS: O2SAT 97
== END 2022-07-08 14:13 | disposition home health service (06) | DRG 854 ==
LOC: HO.ED 17:08 → HO.EDOVER 19:10 → HO.S3 23:04
PROVIDERS: Nurse Practitioner Family; Urology; Admitting Provider Student in an Organized Health Care Education/Training Program; Emergency Provider Emergency Medicine Emergency Medical Services; PCP Hospitalist; Visit Provider Internal Medicine
PROC: 0V950ZZ Drainage of Scrotum, Open Approach (ICD-10-PCS; principal; 2022-07-06 12:20)
DX: A41.9 Sepsis, unspecified organism (principal); I48.19 Other persistent atrial fibrillation; K40.30 Unilateral inguinal hernia, with obstruction, without gangrene, not specified as recurrent; D75.839 Thrombocytosis, unspecified; N49.2 Inflammatory disorders of scrotum; D64.9 Anemia, unspecified; Z20.822 Contact with and (suspected) exposure to COVID-19; Z79.01 Long term (current) use of anticoagulants; Z79.899 Other long term (current) drug therapy
CPT/HCPCS: 36415; 74177; 80048; 80076; 80202; 81001; 83605; 85025; 85027; 85610; 87040; 87635; 99212; 99284; J0696; J2370; J2405; J2543; J2795; J3010; J3370; Q9967

== ENCOUNTER → 2022-07-30 13:01 | Outpatient (BNVA) | payer MEDICARE, SELFPAY | PROVIDERS: PCP Hospitalist; Visit Provider Nurse Practitioner Family | DX: N49.2 Inflammatory disorders of scrotum (principal); K40.90 Unilateral inguinal hernia, without obstruction or gangrene, not specified as recurrent | CPT/HCPCS: 99212 ==

== ENCOUNTER → 2022-08-04 09:59 | Outpatient (BNVA) | payer MEDICARE, SELFPAY | PROVIDERS: PCP Hospitalist; Referring Provider Hospitalist; Visit Provider Internal Medicine | DX: I48.19 Other persistent atrial fibrillation (principal); I10 Essential (primary) hypertension; K40.90 Unilateral inguinal hernia, without obstruction or gangrene, not specified as recurrent | CPT/HCPCS: 99212 ==

== ENCOUNTER → 2022-09-02 09:53 | Outpatient (BNVA) | payer MEDICARE, SELFPAY | PROVIDERS: PCP Hospitalist; Visit Provider Surgery | DX: K40.90 Unilateral inguinal hernia, without obstruction or gangrene, not specified as recurrent (principal) | CPT/HCPCS: 99212 ==

== ENCOUNTER → 2022-11-05 09:07 | Outpatient (BNVA) | payer MEDICARE, SELFPAY | PROVIDERS: PCP Hospitalist; Referring Provider Hospitalist; Visit Provider Internal Medicine | DX: I48.19 Other persistent atrial fibrillation (principal); I10 Essential (primary) hypertension | CPT/HCPCS: 99212 ==

== ENCOUNTER 2023-02-02 09:08 | Outpatient (AMB) | payer MEDICARE, SELFPAY ==
--- NOTE | 2023-02-02 09:12 | MHC.OFFVIS ---
Intake Intake Visit Reasons: 6m follow up/PVR Intake Note: Patient is present for follow up Scrotum Abscess Urology Medication: None Blood Thinner: Apixaban (Eliquis) PVR: 54ml's Chief Scientific Officer Required: No Accompanied by: Spouse Allergies No Known Allergies Allergy (Verified 02/02/23 09:54) Medication List - Last Reconciled 02/02/23 by LORI Jamison- acetaminophen (Tylenol) 650 mg PO Q6H PRN apixaban (Eliquis) 5 mg PO BID 90 days diltiazem HCl 360 mg PO QAM metoprolol tartrate 25 mg PO BID 90 days multivitamin 1 tab PO DAILY omega-3 fatty acids 1,000 mg PO DAILY HPI HPI Comments History of Present Illness Details Mikey is a 82-year-old male patient of Dr. Mckenna who was accompanied by his at today's visit. He presents to the office today for follow-up. Of note, patient was seen approximately 6 months ago after having a admission to [facility] for right-sided scrotal abscess in the setting of a known large inguinal hernia. In discussion with the patient today he reports to be doing and feeling well. He reports following up with General surgery shortly after his last visit here. He reports discussing with Dr. Rosenberg having surgical repair of large right-sided hernia repair however feels given discussion regarding risks of surgical he does not wish to proceed with surgical repair. He reports although hernia is in large he does not feel bothered by this issue. He denies pain and or any issues or concerns at this time. Upon examination the patient today scrotum appears significantly enlarged however no open areas or drainage noted. Patient denies urinary urgency, urinary frequency, incontinence, nocturia, hematuria, dysuria, foul smelling urine, changes to urinary stream, flank pain, fever, and or chills. He is happy with his current voiding parameters. Discussed large right inguinal hernia in the setting of voiding/urination. Patient states he is still able to retract back his penis to be able to urinate. Patient and states that although hernia is large it has remained the same size over the last few years. In office urinalysis results reviewed with the patient today. PVR 54ml's. Discussed follow-up in 6 months with PVR to assure patient is voiding and emptying his bladder in the setting of extremely large right inguinal hernia. [facility] Medical History Incisional abscess Persistent atrial fibrillation Right inguinal hernia Surgical History No pertinent past surgical history Family History Mother Breast cancer Social History Household Members: Spouse Housing: House Do you presently have visiting nurse or other home services: No Alcohol intake: never Patient Tobacco Use Status: Never used Tobacco e-Cigarette/Vaping Use: Never Used service: No Current occupational status: retired Review of Systems Const Reports no additional complaints Eyes Reports no additional complaints ENT Reports no additional complaints Card Details: patient reports a history of Afib and on anticoagulation Resp Reports no additional complaints GI Reports as per HPI Reports as per HPI Musc Reports no additional complaints Neuro Reports no additional complaints Psych Reports no additional complaints Endo Reports no additional complaints Star/Lymph Reports no additional complaints Aller/Immun Reports no additional complaints Physical Exam Const General: cooperative, comfortable, no acute distress, well developed, alert and awake Limitations: no limitations HEENT Head: Yes normal to inspection, Yes normocephalic and Yes atraumatic Ears: hearing grossly normal bilaterally Eyes General: appearance normal, both eyes and all related structures Neck Neck: Yes normal visual inspection and Yes trachea midline Chest Chest palpation & inspection: normal inspection of the chest Resp Effort & Inspection: normal respiratory effort and able to speak in complete sentences Cardio Rate: regular rate Male General Exam: Yes other (large right inginal hernia protruding over the pelvic area ) Penis: uncircumcised and other (able to retract penis however extremely large right inguinal hernia present) Scrotum: inguinal hernia (very large) on the right Extrem General: Yes normal to inspection Psych Appearance: grossly normal and well kempt Mental Status: mental status grossly normal Speech and movement: Normal speech and movement present and Clear speech present Affect: normal affect Attitude: cooperative Thought process: Normal thought process present Thought content: Normal thought content present Insight: Fair insight present (Psych) Judgement: Fair judgement present (Psych) Office Procedures Post Void Residual Post Residual Void Post Void Residual (PVR): 54 [id number] Void Residual by ultrasound Results AMB Urinalysis, Automated UA Leukoctes 0 Tawana/uL Last Edit by Anisha Farooq on 02/02/23 09:38 UA Nitrite Negative Last Edit by Anisha Farooq on 02/02/23 09:38 UA Urobilinogen 0.2 mg/dL Last Edit by Anisha Farooq on 02/02/23 09:38 UA Protein 0 mg/dL Last Edit by Anisha Farooq on 02/02/23 09:38 UA pH 6.5 Last Edit by Anisha Farooq on 02/02/23 09:38 UA Blood 0 Dread/uL Last Edit by Anisha Farooq on 02/02/23 09:38 UA Specific Flushing 1.015 Last Edit by Anisha Farooq on 02/02/23 09:38 UA Ketone Negative Last Edit by Anisha Farooq on 02/02/23 09:38 UA Bilirubin 0 mg/dL Last Edit by Anisha Farooq on 02/02/23 09:38 UA Glucose 0 mg/dL Last Edit by Anisha Farooq on 02/02/23 09:38 Results Reviewed Results Reviewed: Laboratory Last Values Urine pH (Auto) 6.5 02/02/23 09:36 Specific Flushing (Auto) 1.015 02/02/23 09:36 Urine Protein (Auto) 0 mg/dL 02/02/23 09:36 Glucose (UA)(Auto) 0 mg/dL 02/02/23 09:36 Urine Ketones (Auto) Negative 02/02/23 09:36 Urine Blood (Auto) 0 Dread/uL 02/02/23 09:36 Urine Nitrite (Auto) Negative 02/02/23 09:36 Urine Bilirubin (Auto) 0 mg/dL 02/02/23 09:36 Urine Urobilinogen (Auto) 0.2 mg/dL 02/02/23 09:36 Leukocyte Esterase (Auto) 0 Tawana/uL 02/02/23 09:36 Assessment & Plan Assessment & Plan (1) BPH (benign prostatic hyperplasia): Code(s): N40.0 - Benign prostatic hyperplasia without lower urinary tract symptoms (2) Abscess, scrotum: Code(s): N49.2 - Inflammatory disorders of scrotum Plan In office urinalysis results reviewed with the patient today; as noted above. PVR 54 mL. In assessment of area no lesions, open areas, and or drainage noted. Patient denies any urological issues or concerns at this time. Patient reports to be happy with current voiding parameters. Will obtain PSA for further assessment evaluation. Discussed at length monitoring for potential incomplete bladder emptying in the setting of very large right-sided inguinal hernia Follow-up in 6 months with lab to be completed prior; or sooner with any issues, concerns, and or questions. Orders: Orders Prostate Specific Antigen Today N40.0 - Benign prostatic hyperplasia without lower urinary tract symptoms AMB Urinalysis Automated Today Z13.9 - Encounter for screening, unspecified AMB Post Void Residual by ultrasound Today K40.90 - Unilateral inguinal hernia, without obstruction or gangrene, not specified as recurrent Coding Level of Care Code Est Pt Level 3 (62556) Diagnoses BPH (benign prostatic hyperplasia) N40.0 Abscess, scrotum N49.2 CPT Codes Post Residual Void - PVR CPT Code: 85073-Yvsc Void Residual by ultrasound ([id number])
== END 2023-02-02 10:05 | disposition home or self-care (01) ==
PROVIDERS: Visit Provider Nurse Practitioner Family
DX: N40.0 Benign prostatic hyperplasia without lower urinary tract symptoms (principal); N49.2 Inflammatory disorders of scrotum
CPT/HCPCS: 99213

== ENCOUNTER → 2023-02-02 09:08 | Outpatient (BNVA) | payer MEDICARE, SELFPAY | PROVIDERS: Visit Provider Nurse Practitioner Family | DX: N40.0 Benign prostatic hyperplasia without lower urinary tract symptoms (principal); N49.2 Inflammatory disorders of scrotum | CPT/HCPCS: 51798; 99212 ==

== ENCOUNTER 2023-02-05 09:10 | Outpatient (REF) | payer MEDICARE, SELFPAY ==
[2023-02-05 12:04] LABS: Prostate Specific Antigen 0.47 ng/mL (<0.05-4.0)
== END 2023-02-05 09:11 | disposition home or self-care (01) ==
LOC: HO.10HDL 09:10
PROVIDERS: Visit Provider Nurse Practitioner Family
DX: Z12.5 Encounter for screening for malignant neoplasm of prostate (principal); N40.0 Benign prostatic hyperplasia without lower urinary tract symptoms
CPT/HCPCS: 36415; 84153

== ENCOUNTER 2023-06-07 12:12 | Outpatient (AMB) | payer MEDICARE, SELFPAY ==
--- NOTE | 2023-06-07 12:44 | MHC.OFFVIS ---
Intake Vital Signs 06/07/23 12:46 Height 6 ft 1 in Weight 222 lb 3.615 oz BMI 29.3 BP 158/90 H Blood Pressure Location Lt brachial Position Sitting Pulse 85 Intake Visit Reasons: 6 mth f/up r/s covid Intake Note: 6 month follow up Physician Relations Representative Required: No Accompanied by: Self / Same As Patient Allergies No Known Allergies Allergy (Verified 06/07/23 12:47) Medication List - Last Reconciled 06/07/23 by Isma Mcgowan MD acetaminophen (Tylenol) 650 mg PO Q6H PRN apixaban (Eliquis) 5 mg PO BID 90 days diltiazem HCl 360 mg PO QAM metoprolol tartrate 25 mg PO BID multivitamin 1 tab PO DAILY HPI HPI Comments History of Present Illness Details Mikey returns for follow-up regarding atrial fibrillation and hypertension. Overall, no specific cardiac concerns. No angina or shortness of breath or in fact anything cardiac sounding. He states he is getting along fine. [facility] Medical History Incisional abscess Persistent atrial fibrillation Right inguinal hernia Surgical History No pertinent past surgical history Family History Mother Breast cancer Social History Household Members: Spouse Housing: House Do you presently have visiting nurse or other home services: No Alcohol intake: never Patient Tobacco Use Status: Never used Tobacco e-Cigarette/Vaping Use: Never Used service: No Current occupational status: retired Review of Systems Const Denies weakness ENT Denies dizziness Card Denies chest pain, Denies chest pain with activity, Denies syncope, Denies rapid heart rate, Denies pedal edema, Denies edema, Denies leg edema, Denies lightheadedness, Denies palpitations, Denies dyspnea, Denies dyspnea on exertion and Denies orthopnea Resp Denies cough, Denies dyspnea and Denies dyspnea on exertion GI Denies hematochezia and Denies change in stool character Musc Denies abnormal gait, Denies muscle cramps, Denies muscle weakness, Denies numbness, Denies radiating pain into limb and Denies tingling Neuro Denies abnormal gait, Denies dizziness, Denies syncope, Denies numbness, Denies tingling and Denies weakness Endo Denies palpitations Physical Exam Vital Signs: Last Vital Signs Pulse 85 06/07/23 12:46 BP 158/90 H 06/07/23 12:46 BMI result Body Mass Index 29.3 Const General: comfortable and no acute distress Orientation/consciousness: patient oriented x3 HEENT Other: Unremarkable Head: Yes normal to inspection Neck Neck: Yes normal visual inspection Chest Chest palpation & inspection: normal inspection of the chest Resp Auscultation: clear to auscultation bilaterally Cardio Palpation: normal PMI Heart sounds: S1 normal heart sound present, S2 normal heart sound present, no gallops, no murmurs and no rubs GI Palpation (GI): Soft to palpation Back/Spine/Pelvis Other: unremarkable Skin General skin exam: no rashes or lesions noted Neuro General: patient oriented x3 Extrem General: Yes normal to inspection Psych Mental Status: mental status grossly normal Office Procedures EKG Details: EKG with atrial fibrillation at rate of 85/Min; nonspecific ST-T changes. 40456-[id number], Complete Assessment & Plan Assessment & Plan (1) Persistent atrial fibrillation: Code(s): I48.19 - Other persistent atrial fibrillation Plan: Well rate controlled by the last Holter. Today's EKG also shows good rate control. Continue diltiazem and metoprolol as currently on (2) Essential hypertension: Code(s): I10 - Essential (primary) hypertension Plan: Home blood pressure diary reviewed. Some morning blood pressures are in the 140s and 150s. Otherwise, it does come down to the 130s and some 120s. Hence, we can add an evening dose of antihypertensive. Losartan 25mg daily. BMP few days after starting this. Advised to maintain diary and contact us in a few weeks time. Plan Total time spent including review of data, counseling, documentation, coordination of care-32 minutes. Orders: Orders Basic Metabolic Panel 2 Weeks I10 - Essential (primary) hypertension, I48.19 - Other persistent atrial fibrillation Medications: New losartan take around evening meal 25 mg PO DAILY 90 tabs 3RF Coding Level of Care Code Est Pt Level 3 (36502) Diagnoses Persistent atrial fibrillation I48.19 Essential hypertension I10 CPT Codes EKG - CPT: 67827-Nrnryfninnbmilnxz, Complete ([id number])
[2023-06-07 12:46] VITALS: BP 158/90; PULSE 85; BMI 29.3
== END 2023-06-07 13:05 | disposition home or self-care (01) ==
PROVIDERS: PCP Hospitalist; Visit Provider Internal Medicine
DX: I48.19 Other persistent atrial fibrillation (principal); I10 Essential (primary) hypertension
CPT/HCPCS: 93010; 99213

== ENCOUNTER → 2023-06-07 12:12 | Outpatient (BNVA) | payer MEDICARE, SELFPAY | PROVIDERS: PCP Hospitalist; Visit Provider Internal Medicine | DX: I48.19 Other persistent atrial fibrillation (principal); I10 Essential (primary) hypertension | CPT/HCPCS: 93005; 99212 ==

== ENCOUNTER 2023-06-21 07:44 | Outpatient (REF) | payer MEDICARE, SELFPAY ==
[2023-06-21 11:23] LABS: Anion Gap 11 (12-20); Blood Urea Nitrogen 9 mg/dL (9-16); Calcium 9.4 mg/dL (8.4-10.2); Carbon Dioxide 27 mmol/L (22-29); Chloride 107 mmol/L (96-108); Estimated Glomerular Filt Rate > 60; Glucose Random 97 mg/dL (60-115); Sodium 141 mmol/L (135-145)
== END 2023-06-21 07:45 | disposition home or self-care (01) ==
LOC: HO.10HDL 07:44
PROVIDERS: Visit Provider Internal Medicine
DX: I48.19 Other persistent atrial fibrillation (principal); I10 Essential (primary) hypertension
CPT/HCPCS: 36415; 80048

== ENCOUNTER 2023-08-09 09:19 | Outpatient (AMB) | payer MEDICARE, SELFPAY ==
--- NOTE | 2023-08-09 09:34 | A.OFFVIS_ITS ---
Intake Intake Visit Reasons: 6m follow up\labs/PVR Intake Note: Patient is Present for Follow Up PSA/PVR Urology Medication: None Antibiotic Allergies: None Blood Thinners: Eliquis PVR: 54ml's Allergies No Known Allergies Allergy (Verified 08/09/23 09:44) HPI HPI Comments History of Present Illness Details Mikey is a 83-year-old male patient of Dr. Mckenna who was accompanied by his at today's visit. He presents to the office today for follow-up. Of note, patient with a history of right-sided scrotal abscess in the setting of a known large inguinal hernia. In discussion with the patient today he reports to be doing and feeling well. He denies any bothersome urinary issues or concerns. He reports having followed up with General surgery for his large inguinal hernia at which time he has decided to undergo surveillance monitoring in does not wish to undergo elective surgical procedure at this time. In office urinalysis results reviewed with the patient today. PVR 54ml's. When asked patient denies urinary urgency, urinary frequency, incontinence, nocturia, hematuria, dysuria, foul smelling urine, changes to urinary stream, flank pain, fever, and or chills. He is happy with his current voiding parameters. Discussed large right inguinal hernia in the setting of voiding/urination. Patient reports that he is able to retract back his penis to be able to urinate. Patient and states that although hernia is large it has remained the same size over the last few years. In office urinalysis results reviewed with the patient today. PVR 54ml's. Discussed follow-up in 6 months with PVR to ensure patient is voiding and emptying his bladder in the setting of extremely large right inguinal hernia. PSA 02/14-- 0.5. PFSH Medical History Incisional abscess Persistent atrial fibrillation Right inguinal hernia Surgical History No pertinent past surgical history Family History Mother Breast cancer Social History Household Members: Spouse Housing: House Do you presently have visiting nurse or other home services: No Alcohol intake: never Patient Tobacco Use Status: Never used Tobacco e-Cigarette/Vaping Use: Never Used service: No Current occupational status: retired Review of Systems Const Reports no additional complaints Eyes Reports no additional complaints ENT Reports no additional complaints Card Details: patient reports a history of Afib and on anticoagulation Resp Reports no additional complaints GI Reports as per HPI Reports as per HPI Musc Reports no additional complaints Neuro Reports no additional complaints Psych Reports no additional complaints Endo Reports no additional complaints Star/Lymph Reports no additional complaints Aller/Immun Reports no additional complaints Physical Exam Const General: cooperative, comfortable, no acute distress, well developed, alert and awake Limitations: no limitations HEENT Head: Yes normal to inspection, Yes normocephalic and Yes atraumatic Ears: hearing grossly normal bilaterally Eyes General: appearance normal, both eyes and all related structures Neck Neck: Yes normal visual inspection and Yes trachea midline Chest Chest palpation & inspection: normal inspection of the chest Resp Effort & Inspection: normal respiratory effort and able to speak in complete sentences Cardio Rate: regular rate Male General Exam: Yes other (large right inginal hernia protruding over the pelvic area ) Penis: uncircumcised and other (able to retract penis however extremely large right inguinal hernia present) Scrotum: inguinal hernia (very large) on the right Extrem General: Yes normal to inspection Psych Appearance: grossly normal and well kempt Mental Status: mental status grossly normal Speech and movement: Normal speech and movement present and Clear speech present Affect: normal affect Attitude: cooperative Thought process: Normal thought process present Thought content: Normal thought content present Insight: Fair insight present (Psych) Judgement: Fair judgement present (Psych) Office Procedures Post Void Residual Post Residual Void Post Void Residual (PVR): 54 [id number] Void Residual by ultrasound Results AMB Urinalysis, Automated UA Leukoctes 0 Tawana/uL Last Edit by PAULY Ridley on 08/09/23 09:53 UA Nitrite Negative Last Edit by PAULY Ridley on 08/09/23 09:53 UA Urobilinogen 0.2 mg/dL Last Edit by PAULY Ridley on 08/09/23 09:5 3 UA Protein 15 mg/dL Last Edit by PAULY Ridley on 08/09/23 09:53 UA pH 6.5 Last Edit by RAS RidleyA on 08/09/23 09:53 UA Blood 0 Dread/uL Last Edit by Orin Cleaning RMA on 08/09/23 09:53 UA Specific Samson 1.015 Last Edit by Orin Cleaning RMA on 08/09/23 09: 53 UA Ketone Negative Last Edit by Orin Cleaning RMA on 08/09/23 09:53 UA Bilirubin 0 mg/dL Last Edit by Orin Cleaning RMA on 08/09/23 09:53 UA Glucose 0 mg/dL Last Edit by Orin Cleaning RMA on 08/09/23 09:53 Results Reviewed Results Reviewed: Laboratory Last Values Urine pH (Auto) 6.5 08/09/23 09:45 Specific Samson (Auto) 1.015 08/09/23 09:45 Urine Protein (Auto) 15 mg/dL 08/09/23 09:45 Glucose (UA)(Auto) 0 mg/dL 08/09/23 09:45 Urine Ketones (Auto) Negative 08/09/23 09:45 Urine Blood (Auto) 0 Dread/uL 08/09/23 09:45 Urine Nitrite (Auto) Negative 08/09/23 09:45 Urine Bilirubin (Auto) 0 mg/dL 08/09/23 09:45 Urine Urobilinogen (Auto) 0.2 mg/dL 08/09/23 09:45 Leukocyte Esterase (Auto) 0 Tawana/uL 08/09/23 09:45 Assessment & Plan Assessment & Plan (1) Encounter for screening: Code(s): Z13.9 - Encounter for screening, unspecified (2) BPH (benign prostatic hyperplasia): Code(s): N40.0 - Benign prostatic hyperplasia without lower urinary tract symptoms (3) Abscess, scrotum: Code(s): N49.2 - Inflammatory disorders of scrotum Plan In office urinalysis results reviewed with the patient today; as noted above. PVR 54 mL. In assessment of area no lesions, open areas, and or drainage noted. Patient denies any urological issues or concerns at this time. Patient reports to be happy with current voiding parameters. Will obtain PSA for further assessment evaluation prior to next office visit Discussed at length monitoring for potential incomplete bladder emptying in the setting of very large right-sided inguinal hernia Follow-up in 6 months with lab to be completed prior; or sooner with any issues, concerns, and or questions. Orders: Orders AMB Post Void Residual by ultrasound Today Z13.9 - Encounter for screening, unspecified AMB Urinalysis Automated Today Z13.9 - Encounter for screening, unspecified Prostate Specific Antigen 6 Months N40.0 - Benign prostatic hyperplasia without lower urinary tract symptoms Patient Instructions: The patient had an opportunity to ask questions regarding the treatment plan. All questions were answered. Physical exam, labs, and imaging were discussed and reviewed in detail. As well as risks, benefits, and discussion of treatment choices. No major barriers to understanding were identified. The patient expressed understanding and agreement with the above treatment plan. The patient was made aware they should contact our office by phone for worsening of their current condition, the appearance of new symptoms, or with any questions or concerns. Compliance is encouraged with any medications and follow up testing that is ordered. It is a privilege to be allowed the opportunity to participate in? your urological care.? Again, if you have any questions or concerns If you have any questions or concerns please do not hesitate to contact me. The office is [phone]. This note is constructed using voice recognition software. While every effort has been made to ensure accuracy gerentological physiotherapist errors may have been included. Yours sincerely, SHAWN Jamison Coding Level of Care Code Est Pt Level 3 (47390) Diagnoses Encounter for screening Z13.9 BPH (benign prostatic hyperplasia) N40.0 Abscess, scrotum N49.2 CPT Codes Post Residual Void - PVR CPT Code: 40838-Vnvd Void Residual by ultrasound ([id number])
== END 2023-08-09 10:15 | disposition home or self-care (01) ==
PROVIDERS: PCP Hospitalist; Visit Provider Nurse Practitioner Family
DX: N40.0 Benign prostatic hyperplasia without lower urinary tract symptoms (principal); N49.2 Inflammatory disorders of scrotum; Z13.9 Encounter for screening, unspecified
CPT/HCPCS: 99213

== ENCOUNTER → 2023-08-09 09:19 | Outpatient (BNVA) | payer MEDICARE, SELFPAY | PROVIDERS: PCP Hospitalist; Visit Provider Nurse Practitioner Family | DX: N40.0 Benign prostatic hyperplasia without lower urinary tract symptoms (principal); N49.2 Inflammatory disorders of scrotum; Z13.9 Encounter for screening, unspecified | CPT/HCPCS: 51798; 81003; 99212 ==

== ENCOUNTER 2023-12-08 11:57 | Outpatient (AMB) | payer MEDICARE, SELFPAY ==
--- NOTE | 2023-12-08 12:29 | A.OFFVIS_ITS ---
Vital Signs 12/08/23 12:30 Height 6 ft 1 in Weight 235 lb 14.314 oz BMI 31.1 BP 144/84 H Blood Pressure Location Lt brachial Position Sitting Pulse 94 Intake Visit Reasons: 6 mth f/up Intake Note: 6 month follow-up feeling good Transformation Coach Required: No Computer Animator: Computer Animator Present Accompanied by: Spouse Allergies No Known Allergies Allergy (Verified 08/09/23 09:44) Medication List - Last Reconciled 12/08/23 by Isma Mcgowan MD acetaminophen (Tylenol) 650 mg PO Q6H PRN apixaban (Eliquis) 5 mg PO BID diltiazem HCl CD 360 mg PO QAM losartan 25 mg PO DAILY metoprolol tartrate 25 mg PO BID multivitamin 1 tab PO DAILY HPI Comments Details: Mikey returns for follow-up regarding atrial fibrillation and hypertension. He states that he is feeling fine. No specific complaints like angina or shortness of breath or in fact any other complaints. [facility] Medical History Incisional abscess Persistent atrial fibrillation Right inguinal hernia Surgical History No pertinent past surgical history Family History Mother Breast cancer Social History Household Members: Spouse Housing: House Do you presently have visiting nurse or other home services: No Alcohol intake: never Patient Tobacco Use Status: Never used Tobacco e-Cigarette/Vaping Use: Never Used service: No Current occupational status: retired Review of Systems Const Denies chills, Denies fatigue, Denies fever(s), Denies frequent falls, Denies weakness, Denies weight gain and Denies weight loss ENT Denies dizziness Card Denies chest pain, Denies leg edema, Denies lightheadedness, Denies palpitations, Denies dyspnea, Denies dyspnea on exertion, Denies orthopnea and Denies other (loss of consciousness) Resp Denies cough, Denies dyspnea and Denies dyspnea on exertion GI Denies hematochezia and Denies change in stool character Musc Denies abnormal gait, Denies muscle weakness, Denies numbness, Denies radiating pain into limb and Denies tingling Neuro Denies abnormal gait, Denies dizziness, Denies frequent falls, Denies numbness, Denies tingling and Denies weakness Endo Denies fatigue and Denies palpitations Physical Exam Vital Signs: Last Vital Signs Pulse 94 12/08/23 12:30 BP 144/84 H 12/08/23 12:30 BMI result Body Mass Index 31.1 Const General: comfortable and no acute distress Orientation/consciousness: patient oriented x3 HEENT Other: Unremarkable Head: Yes normal to inspection Neck Neck: Yes normal visual inspection Chest Chest palpation & inspection: normal inspection of the chest Resp Auscultation: clear to auscultation bilaterally Cardio Palpation: normal PMI Heart sounds: S1 normal heart sound present, S2 normal heart sound present, no gallops, no murmurs and no rubs GI Palpation (GI): Soft to palpation Back/Spine/Pelvis Other: unremarkable Skin General skin exam: no rashes or lesions noted Neuro General: patient oriented x3 Extrem General: Yes normal to inspection Psych Mental Status: mental status grossly normal Assessment & Plan Assessment & Plan (1) Persistent atrial fibrillation: Code(s): I48.19 - Other persistent atrial fibrillation Category: Medical Plan: Well rate controlled by the last Holter. Last EKG also shows good rate control. Continue diltiazem and metoprolol. Continue Eliquis. (2) Essential hypertension: Code(s): I10 - Essential (primary) hypertension Category: Medical Plan: Office blood pressure is slightly high but he states home blood pressures are in the 130s/80s. No changes for now. Plan Total time spent including review of data, counseling, documentation, coordination of care-31 minutes. Coding Level of Care Code Est Pt Level 4 (05639) Diagnoses Persistent atrial fibrillation I48.19 Essential hypertension I10
[2023-12-08 12:30] VITALS: BP 144/84; PULSE 94; BMI 31.1
== END 2023-12-08 12:45 | disposition home or self-care (01) ==
PROVIDERS: PCP Hospitalist; Visit Provider Internal Medicine
DX: I48.19 Other persistent atrial fibrillation (principal); I10 Essential (primary) hypertension
CPT/HCPCS: 99214

== ENCOUNTER → 2023-12-08 11:57 | Outpatient (BNVA) | payer MEDICARE, SELFPAY | PROVIDERS: PCP Hospitalist; Visit Provider Internal Medicine | DX: I48.19 Other persistent atrial fibrillation (principal); I10 Essential (primary) hypertension | CPT/HCPCS: 99212 ==

== ENCOUNTER 2024-01-31 08:34 | Outpatient (REF) | payer MEDICARE, SELFPAY ==
[2024-01-31 12:00] LABS: Prostate Specific Antigen 0.52 ng/mL (<0.05-4.0)
== END 2024-01-31 08:35 | disposition home or self-care (01) ==
LOC: HO.10HDL 08:34
PROVIDERS: Visit Provider Nurse Practitioner Family
DX: N40.0 Benign prostatic hyperplasia without lower urinary tract symptoms (principal); Z12.5 Encounter for screening for malignant neoplasm of prostate
CPT/HCPCS: 36415; 84153

== ENCOUNTER 2024-02-09 09:26 | Outpatient (AMB) | payer MEDICARE, SELFPAY ==
--- NOTE | 2024-02-09 09:30 | A.OFFVIS_ITS ---
Intake Visit Reasons: 6m/PSA Intake Note: Patient is Present for 6M Follow Up PSA Urology Medication: None Antibiotic Allergies: None Blood Thinners: Eliquis PVR: 54ml's TODAY'S PVR: 32ML'S Gambling Dealer Required: No Allergies No Known Allergies Allergy (Verified 02/09/24 10:03) Medication List - Last Reconciled 02/09/24 by SHAWN Jamison acetaminophen (Tylenol) 650 mg PO Q6H PRN apixaban (Eliquis) 5 mg PO BID diltiazem HCl ER 360 mg PO DAILY losartan 25 mg PO DAILY metoprolol tartrate 25 mg PO BID multivitamin 1 tab PO DAILY HPI Comments Details: Mikey is a 83-year-old male patient of Dr. Mckenna who was accompanied by his at today's visit. He presents to the office today for follow-up. Of note, patient with a history of right-sided scrotal abscess in the setting of a known large inguinal hernia. In discussion with the patient today he reports to be doing and feeling well. He denies any bothersome urinary issues or concerns. He reports having followed up with General surgery for his large inguinal hernia at which time he has decided to undergo surveillance monitoring in does not wish to undergo elective surgical procedure at this time. In office urinalysis results reviewed with the patient today. PVR 32ml's. When asked patient denies urinary urgency, urinary frequency, incontinence, nocturia, hematuria, dysuria, foul smelling urine, changes to urinary stream, flank pain, fever, and or chills. He is happy with his current voiding parameters. Discussed large right inguinal hernia in the setting of voiding/urination. Patient reports that he is able to retract back his penis to be able to urinate. PSAs are as follows: PSA 02/14 0.5, 02/15 0.5 PFSH Medical History Incisional abscess Persistent atrial fibrillation Right inguinal hernia Surgical History No pertinent past surgical history Family History Mother Breast cancer Social History Household Members: Spouse Housing: House Do you presently have visiting nurse or other home services: No Alcohol intake: never Patient Tobacco Use Status: Never used Tobacco e-Cigarette/Vaping Use: Never Used service: No Current occupational status: retired Review of Systems Const Reports no additional complaints Eyes Reports no additional complaints ENT Reports no additional complaints Card Details: patient reports a history of Afib and on anticoagulation Resp Reports no additional complaints GI Reports as per HPI Reports as per HPI Musc Reports no additional complaints Neuro Reports no additional complaints Psych Reports no additional complaints Endo Reports no additional complaints Star/Lymph Reports no additional complaints Aller/Immun Reports no additional complaints Physical Exam Const General: cooperative, healthy appearing, comfortable, no acute distress, well developed, alert and awake Orientation/consciousness: patient oriented x3 Limitations: no limitations HEENT Head: Yes normal to inspection, Yes normocephalic and Yes atraumatic Ears: hearing grossly normal bilaterally Eyes General: appearance normal, both eyes and all related structures Neck Neck: Yes normal visual inspection and Yes trachea midline Chest Chest palpation & inspection: normal inspection of the chest Resp Effort & Inspection: normal respiratory effort and able to speak in complete sentences Cardio Rate: regular rate Male General Exam: Yes other (large right inginal hernia protruding over the pelvic area ) Penis: uncircumcised and other (able to retract penis however extremely large right inguinal hernia present) Scrotum: inguinal hernia (very large) on the right Neuro General: patient oriented x3 Extrem General: Yes normal to inspection Psych Appearance: grossly normal and well kempt Mental Status: mental status grossly normal Speech and movement: Normal speech and movement present and Clear speech present Affect: normal affect Attitude: cooperative Thought process: Normal thought process present Thought content: Normal thought content present Insight: Fair insight present (Psych) Judgement: Fair judgement present (Psych) Office Procedures Post Void Residual Post Residual Void Post Void Residual (PVR): 32 [id number] Void Residual by ultrasound Results AMB Urinalysis, Automated UA Leukoctes 0 Tawana/uL Last Edit by JOSE Berg on 02/09/24 09:42 UA Nitrite Negative Last Edit by JOSE Berg on 02/09/24 09:42 UA Urobilinogen 0.2 mg/dL Last Edit by JOSE Berg on 02/09/24 09:4 2 UA Protein 30 mg/dL Last Edit by JOSE Berg on 02/09/24 09:42 UA pH 7.5 Last Edit by JOSE Berg on 02/09/24 09:42 UA Blood 0 Dread/uL Last Edit by JOSE Berg on 02/09/24 09:42 UA Specific [place] 1.010 Last Edit by JOSE Berg on 02/09/24 09: 42 UA Ketone Negative Last Edit by JOSE Berg on 02/09/24 09:42 UA Bilirubin 0 mg/dL Last Edit by JOSE Berg on 02/09/24 09:42 UA Glucose 0 mg/dL Last Edit by JOSE Berg on 02/09/24 09:42 Results Reviewed Results Reviewed: Laboratory Last Values Urine pH (Auto) 7.5 02/09/24 09:41 Specific [place] (Auto) 1.010 02/09/24 09:41 Urine Protein (Auto) 30 mg/dL 02/09/24 09:41 Glucose (UA)(Auto) 0 mg/dL 02/09/24 09:41 Urine Ketones (Auto) Negative 02/09/24 09:41 Urine Blood (Auto) 0 Dread/uL 02/09/24 09:41 Urine Nitrite (Auto) Negative 02/09/24 09:41 Urine Bilirubin (Auto) 0 mg/dL 02/09/24 09:41 Urine Urobilinogen (Auto) 0.2 mg/dL 02/09/24 09:41 Leukocyte Esterase (Auto) 0 Tawana/uL 02/09/24 09:41 Assessment & Plan Assessment & Plan (1) Abscess, scrotum: Code(s): N49.2 - Inflammatory disorders of scrotum Category: Medical (2) Lower urinary tract symptoms: Code(s): R39.9 - Unspecified symptoms and signs involving the genitourinary system Category: Medical Plan In office urinalysis results reviewed with the patient today; as noted above. PVR 32 mLs Recent PSA results reviewed with the patient. Patient currently denies any bothersome urinary issues or concerns. He reports be happy with current voiding parameters. Follow-up in 1 year with PSA to be completed prior; or sooner with any issues, concerns, and or questions. Orders: Orders AMB Urinalysis Automated Today Z13.9 - Encounter for screening, unspecified Patient Instructions: The patient had an opportunity to ask questions regarding the treatment plan. All questions were answered. Physical exam, labs, and imaging were discussed and reviewed in detail. As well as risks, benefits, and discussion of treatment choices. No major barriers to understanding were identified. The patient e xpressed understanding and agreement with the above treatment plan. The patient was made aware they should contact our office by phone for worsening of their current condition, the appearance of new symptoms, or with any questions or concerns. Compliance is encouraged with any medications and follow up testing that is ordered. It is a privilege to be allowed the opportunity to participate in? your urological care.? Again, if you have any questions or concerns If you have any questions or concerns please do not hesitate to contact me. The office is [phone]. This note is constructed using voice recognition software. While every effort has been made to ensure accuracy knowledge management consultant errors may have been included. Yours sincerely, SHAWN Jamison Coding Level of Care Code Est Pt Level 3 (91682) Complex EM visit Add On G2211 Diagnoses Abscess, scrotum N49.2 Lower urinary tract symptoms R39.9 CPT Codes Post Residual Void - PVR CPT Code: 54172-Fyer Void Residual by ultrasound ([id number])
== END 2024-02-09 10:00 | disposition home or self-care (01) ==
PROVIDERS: PCP Hospitalist; Visit Provider Nurse Practitioner Family
DX: N49.2 Inflammatory disorders of scrotum (principal); R39.9 Unspecified symptoms and signs involving the genitourinary system; Z13.9 Encounter for screening, unspecified
CPT/HCPCS: 99213; G2211

== ENCOUNTER → 2024-02-09 09:26 | Outpatient (BNVA) | payer MEDICARE, SELFPAY | PROVIDERS: PCP Hospitalist; Visit Provider Nurse Practitioner Family | DX: N49.2 Inflammatory disorders of scrotum (principal); R39.9 Unspecified symptoms and signs involving the genitourinary system | CPT/HCPCS: 51798; 81003; 99212 ==

== ENCOUNTER 2024-05-27 19:17 | Emergency (ER) | payer MEDICARE, SELFPAY ==
--- NOTE | ~2024-05-27 | CT_ITS ---
EXAMINATION: Unenhanced CT the head; IV contrast enhanced CT angiography of the head and neck; delayed IV contrast-enhanced CT the head CLINICAL INFORMATION: Right facial droop. COMPARISON: None. TECHNIQUE: Routine unenhanced CT the head with multiple coronal and sagittal reformatted images; IV contrast enhanced CT angiography of the head and neck with multiple 3-D reformatted angiographic thick section MIPS images processed on the technologist workstation under concurrent supervision; delayed IV contrast-enhanced CT the head. Vascular stenoses are made with reference to the NASCET criteria less otherwise specified. This CT examination was performed using dose optimization techniques as appropriate, variously including the following: *Automated exposure control *Adjustment of mA and/or kV according to patient size (this includes techniques or standardized protocols for targeted exams where dose is matched to indication/reason for exam; i.e. extremities or head) *Use of iterative reconstruction technique Intravenous Contrast: Omnipaque 350 75 mL DLP: 2433 mGy-cm FINDINGS: Unenhanced CT of the head: Mild diffuse commensurate prominence of ventricles and sulci. No intracranial hemorrhage, tumors or acute infarcts identified. No focal parenchymal lesions the brain identified. No abnormal enhancement of the brain parenchyma. Normal intraluminal opacification of the major intracranial dural sinuses. Normal appearance of the orbits and globes. No intracranial soft tissue inflammatory changes. No significant opacification of the visualized paranasal sinuses, mastoid air cells and middle ear cavities. CT angiography neck: Conventional branching anatomy of the great vessels in relation to the transverse aorta. Minimal centric nonocclusive predominantly noncalcific atherosclerosis within the left and right carotid bulbs without ulceration. The left vertebral artery is dominant. No cervical vertebral artery system stenoses, occlusions or dissections. CT angiography head: Nonocclusive segmental calcific atherosclerosis of the cavernous portions of the internal carotid arteries. No intracranial stenoses, occlusions or aneurysms noted. The visualized lung apices are clear. A 1.0 cm nodule is present in the right lobe of the thyroid on the basis of this examination and warrants no additional imaging follow-up. No cervical lymphadenopathy. Normal appearance of the parotid and submandibular glands. Multifocal dental amalgam giving rise to scattering artifact which obscures visualization of the adjacent transaxial structures. Mild focal thickening within the alveolar recesses of the maxillary sinuses. Moderate-marked intervertebral disc space narrowing C5-C6, C6-C7 with mild posterior endplate osteophytosis. Mild multilevel facet hypertrophic changes of the cervical spine. Within the visualized pulmonary arterial system, no gross intraluminal filling defects noted. CT/CT angio head neck IMPRESSION: Unenhanced IV contrast and CT of the head: *No acute intracranial abnormalities identified. CT angiography neck: *Nonocclusive bilateral carotid bulb eccentric predominantly noncalcific atherosclerosis. No associated ulcerations. CT angiography head: *No intracranial large vessel occlusions. *Nonocclusive segmental calcific atherosclerosis of the cavernous portions of the internal carotid arteries. Electronically signed by: Herb Lyle MD 05/27/2024 11:52 PM EDT
[2024-05-27 19:21] VITALS: BMI 30.3
[2024-05-27 19:34] LABS: Glucose, Whole Blood 102 mg/dL (60-115)
--- NOTE | 2024-05-27 20:12 | ED_ITS ---
HPI - Neuro Symptoms/Deficit General Chief Complaint: Stroke Stated Complaint: right eye burning/can't close it Time Seen by Provider: 05/27/24 20:13 Source: patient Limitations: no limitations and other (Poor historian) History of Present Illness ED Provider: Sophie Pizano PA-C HPI Narrative: 84-year-old male with a history of AFib on anticoagulation, hypertension, presents with right-sided facial droop times 2-3 days. The right pupil is also larger in size versus the left . The family does not know how long this discrepancy has been here. The patient is unaware as well. Patient does not know if he has recently been exposed to a tick, but he does work outside. He has a cat, however it does not go outside. Associated upper respiratory symptoms for 2-3 days as well. Related Data Home Medications ?Medication ?Instructions ?Recorded ?Confirmed multivitamin 1 tab PO DAILY 02/18/22 12/08/23 acetaminophen 325 mg tablet 650 mg PO Q6H PRN Pain 07/03/22 12/08/23 (Tylenol) Previous Rx's ?Medication ?Instructions ?Recorded apixaban 5 mg tablet (Eliquis) 5 mg PO BID #180 tabs 09/14/23 diltiazem HCl 360 mg capsule,24 360 mg PO DAILY #90 caps 01/26/24 hr,extended release metoprolol tartrate 25 mg tablet 25 mg PO BID #180 tabs 02/22/24 losartan 25 mg tablet 25 mg PO DAILY #90 tabs 05/22/24 prednisone 5 mg tablets in a dose 5 mg PO DIRECTED #21 ea 05/28/24 pack prednisone 50 mg tablet 50 mg PO DAILY #4 tabs 05/28/24 white petrolatum-mineral oil 83 1 appl ophthalmic (eye) BEDTIME 05/28/24 %-15 % eye ointment (Artificial #3.5 grams Eye Lubricant) Allergies Allergy/AdvReac Type Severity Reaction Status Date / Time No Known Allergies Allergy Verified 05/27/24 19:27 Review of Systems 2 Review of Systems: Yes all other systems are reviewed and are negative Constitutional: Constitutional: Denies fatigue, Denies fever(s) and Denies headache(s) Eyes: Eyes: Denies change in vision, Reports dry eyes and Denies loss of vision ENT: Denies headache(s) and Reports nasal congestion Cardiovascular: Cardiovascular: Denies chest pain and Denies dyspnea Respiratory: Respiratory: Denies chest congestion, Denies cough and Denies dyspnea Gastrointestinal: Gastrointestinal: Denies diarrhea, Denies nausea and Denies vomiting Neurologic: Denies Abnormal speech present, Denies headache(s), Denies focal weakness, Denies loss of vision and Denies paresthesias Endocrine: Endocrine: Denies fatigue PMFSH Past Medical History Attestation statement: The following information was validated with the patient. Medical History Incisional abscess Persistent atrial fibrillation Right inguinal hernia Surgical History No pertinent past surgical history Family History Family History Mother Breast cancer Social History Social History Household Members: Spouse Housing: House Do you presently have visiting nurse or other home services: No Alcohol intake: never Patient Tobacco Use Status: Never used Tobacco Smoked in Last 30 Days: No e-Cigarette/Vaping Use: Never Used Advance Directives: No Advance Directives Information Provided: No Do you have a plan to hurt others: No Plan service: No Current occupational status: retired Physical Exam 2 Vital Signs: Vital Signs: Last Vital Signs Temp 98.7 F 05/27/24 23:19 Pulse 77 05/27/24 23:19 Resp 16 05/27/24 23:19 BP 148/97 H 05/27/24 23:19 Pulse Ox 96 05/27/24 23:19 O2 Del Method Room Air 05/27/24 23:19 BMI result Body Mass Index 30.3 Const: Other: Alert well in appearance Orientation/consciousness: patient oriented x3 Eyes: Other: Patient unable to close the right eye, pupil measures approximately 3-4 mm, the left pupil measures approximately 2 mm Resp: Other: Nonlabored respirations Cardio: Other: Normal peripheral perfusion Skin: Other: Warm dry no rash Neuro: Other: Right-sided facial droop noted , sensation intact General: patient oriented x3, gait normal and no focal motor deficits S peech: No Abnormal speech present Psych: Other: Calm cooperative Medications Administered Discontinued Medications Generic Name Dose Route Start Last Admin Trade Name Brielle PRN Reason Stop Dose Admin Iohexol 100 ml 05/27/24 21:39 05/27/24 21:40 Iohexol 350 Mg/Ml 100 Ml Infus..Btl IV 05/27/24 21:40 70 ml ONCE ONE Administration Polyethyl Glycol/Propylene Glycol 2 drop 05/27/24 20:45 05/27/24 21:44 Propylene Glycol/Peg 400 Gel Eye Drops 10ml EYE-RIGHT 05/27/24 20:46 2 drop ONCE ONE Administration Medical Decision Making Medical Decision Making MDM Narrative: 84-year-old male with a history of AFib on anticoagulation, hypertension, presents with right-sided facial droop times 2-3 days. The right pupil is also larger in size versus the left . The family does not know how long this discrepancy has been here. The patient is unaware as well. Patient does not know if he has recently been exposed to a tick, but he does work outside. He has a cat, however it does not go outside. Associated upper respiratory symptoms for 2-3 days as well. Problem: AFib, age History: Per patient I have considered the following differential diagnoses: Herndon's palsy, stroke Plan: This is likely Herndon's palsy, there are no additional neurologic deficits on exam. However given his age, and he has an arrhythmia, I am ruling out for potential stroke. We will screen basic labs. We will order an eye lubricant, adding a tick panel. Labs: No leukocytosis, not anemic, no electrolyte abnormality noted, tick panel pending CT angio head and neck: CT/CT angio head neck IMPRESSION: Unenhanced IV contrast and CT of the head: *No acute intracranial abnormalities identified. CT angiography neck: *Nonocclusive bilateral carotid bulb eccentric predominantly noncalcific atherosclerosis. No associated ulcerations. CT angiography head: *No intracranial large vessel occlusions. *Nonocclusive segmental calcific atherosclerosis of the cavernous portions of the internal carotid arteries. Electronically signed by: Herb Lyle MD 05/27/2024 11:52 PM EDT Lab Data 05/27/24 21:06 05/27/24 19:34 Labs: Lab Results 05/27/24 05/27/24 05/27/24 Range/Units 19:30 19:34 21:06 WBC 10.7 (4.8-10.8) X10*3/uL RBC 5.66 D (4.60-5.80) X10*6/uL Hgb 17.9 D (14.0-18.0) g/dl Hct 51.8 D (42.0-52.0) % MCV 91.5 (80.0-98.0) fL MCH 31.6 (27.0-33.0) pg MCHC 34.6 (31.0-36.0) g/dl RDW 13.2 (11.0-16.0) % Plt Count 295 D (160-400) X10*3/uL MPV 10.9 (9.4-12.4) fL Immature Gran % (Auto) 0.3 (0.0-0.4) % Neut % (Auto) 60.9 (45-73) % Lymph % (Auto) 26.4 (20-40) % [place] % (Auto) 10.1 (2-11) % Eos % (Auto) 1.6 (0-4) % Baso % (Auto) 0.7 (0-2) % Lymph # (Auto) 2.8 (1.2-4.9) X10*3/uL [place] # (Auto) 1.1 (0.1-1.2) X10*3/uL Eos # (Auto) 0.2 (0.0-0.4) X10*3/uL Baso # (Auto) 0.1 (0.0-0.2) X10*3/uL Abs Immat Gran (auto) 0.03 (0.00-0.03) X10*3/uL Absolute Neuts (auto) 6.6 (2.0-8.3) x10*3/uL Absolute Nucleated RBC 0.000 (0.0-0.012) X10*3/uL Nucleated RBC % (auto) 0.0 (0.0-0.2) /100WBC Hold Purple Top SEE NOTE Hold Blue Top SEE NOTE Sodium 141 (135-145) mmol/L Potassium 3.6 (3.3-5.1) mmol/L Chloride 102 (96-108) mmol/L Carbon Dioxide 23 (22-29) mmol/L Anion Gap 20 (12-20) BUN 13 (9-16) mg/dL Creatinine 1.11 (0.5-1.4) mg/dL Estim Creat Clear Calc 63.9 Estimated GFR > 60 POC Glucose 102 (60-115) mg/dL Random Glucose 104 (60-115) mg/dL Calcium 9.9 (8.4-10.2) mg/dL Magnesium 2.2 (1.6-2.6) mg/dL Total Bilirubin 1.1 H (0.0-1.0) mg/dL AST 31 (5-37) U/L ALT 22 (0-40) U/L Alkaline Phosphatase 60 (39-117) U/L Total Protein 8.3 H (6.5-8.0) g/dL Albumin 4.7 (3.5-5.0) g/dL Discharge Plan Discharge Clinical Impression: Right-sided Herndon's palsy Patient Disposition: Home, Self-Care Instructions: Herndon Palsy (ED) Additional Instructions: The CT angiograms of your head and neck were negative for acute stroke. You have what is called Herndon's palsy, this is facial paralysis that will resolve with time. It could be induced by a virus or if you were exposed to a tick. A tick panel is currently pending, you will be called by 1 of us if you screen positive and require antibiotics. Follow up with your primary care provider this week. Use the eye lubricant as directed, you can also wear an eye patch. Take the 50 mg prednisone burst as directed, you received your first dose here in the emergency department tonight, you do not require additional medication until tomorrow mid day. You will take 50 mg daily for the next 4 days. Following the steroid burst, begin the prednisone 5 mg steroid taper, use the medication per package instructions. Prescriptions: New Artificial Eye Lubricant 83-15 % ointment 1 appl ophthalmic (eye) BEDTIME Qty: 3.5 0RF prednisone 50 mg tablet 50 mg PO DAILY Qty: 4 0RF prednisone 5 mg tablets,dose pack 5 mg PO DIRECTED Qty: 21 0RF Rx Instructions: see taper instructions No Action Eliquis 5 mg tablet 5 mg PO BID Qty: 180 3RF diltiazem HCl 360 mg capsule,extended release 24 hr 360 mg PO DAILY Qty: 90 3RF metoprolol tartrate 25 mg tablet 25 mg PO BID Qty: 180 3RF losartan 25 mg tablet 25 mg PO DAILY Qty: 90 3RF Rx Instructions: take around evening meal multivitamin Tablet 1 tab PO DAILY acetaminophen [Tylenol] 325 mg Tablet 650 mg PO Q6H PRN (Reason: Pain) Print Language: [place]
--- NOTE | 2024-05-27 20:22 | ECG_ITS ---
Test Reason : arrythmia Blood Pressure : / mmHG Vent. Rate : 083 BPM Atrial Rate : 091 BPM P-R Int : 000 ms QRS Dur : 106 ms QT Int : 388 ms P-R-T Axes : 000 122 -23 degrees QTc Int : 455 ms Atrial fibrillation Right axis deviation Nonspecific ST and T wave abnormality Abnormal ECG When compared with ECG of 18-FEB-2022 02:52, decrease in ventricular rate Referred By: Sophie Pizano Electronically Signed By:CASTILLO CORONEL
[2024-05-27 20:51] LABS: Basophils Absolute Auto 0.1 X10*3/uL (0.0-0.2); Basophils Percent Auto 0.7 % (0-2); Eosinophils Absolute Auto 0.2 X10*3/uL (0.0-0.4); Eosinophils Percent Auto 1.6 % (0-4); Hematocrit 51.8 % (42.0-52.0); Hemoglobin 17.9 g/dl (14.0-18.0); Imm Gran Abs Auto 0.03 X10*3/uL (0.00-0.03); Imm Gran Pct Auto 0.3 % (0.0-0.4); Lymphocytes Absolute Auto 2.8 X10*3/uL (1.2-4.9); Lymphocytes Percent Auto 26.4 % (20-40); MANUAL DIFF FLAG NO; Mean Corpuscular HGB Conc 34.6 g/dl (31.0-36.0); Mean Corpuscular Hemoglobin 31.6 pg (27.0-33.0); Mean Corpuscular Volume 91.5 fL (80.0-98.0); Mean Platelet Volume 10.9 fL (9.4-12.4); Monocytes Absolute Auto 1.1 X10*3/uL (0.1-1.2); Monocytes Percent Auto 10.1 % (2-11); Neutrophils Absolute Auto 6.6 x10*3/uL (2.0-8.3); Neutrophils Percent Auto 60.9 % (45-73); Platelet Count 295 X10*3/uL (160-400); Red Blood Count 5.66 X10*6/uL (4.60-5.80); Red Cell Distribution Width 13.2 % (11.0-16.0); White Blood Count 10.7 X10*3/uL (4.8-10.8)
--- NOTE | 2024-05-27 20:57 | PC.NURSE ---
Pharmacy to deliver eye drops.
[2024-05-27 21:13] LABS: Alanine Aminotransferase 22 U/L (0-40); Albumin Level 4.7 g/dL (3.5-5.0); Alkaline Phosphatase 60 U/L (39-117); Anion Gap 20 (12-20); Aspartate Amino Transferase 31 U/L (5-37); Bilirubin Total 1.1 mg/dL (0.0-1.0); Blood Urea Nitrogen 13 mg/dL (9-16); Calcium 9.9 mg/dL (8.4-10.2); Carbon Dioxide 23 mmol/L (22-29); Chloride 102 mmol/L (96-108); Creatinine Clr Calc Pharmacy 63.9; Estimated Glomerular Filt Rate > 60; Glucose Random 104 mg/dL (60-115); Magnesium 2.2 mg/dL (1.6-2.6); Potassium 3.6 mmol/L (3.3-5.1); Sodium 141 mmol/L (135-145); Total Protein 8.3 g/dL (6.5-8.0)
[2024-05-27] MEDS: iohexoL 350 MG/ML 100 ML INFUS..BTL IV (21:40)
[2024-05-27] MEDS: Propylene Glycol/PEG 400 Gel Eye Drops 10ML 2 DROP EYE-RIGHT (21:44)
--- NOTE | 2024-05-27 22:18 | PC.NURSE ---
pt medicated per SEP- awaiting CTA results- pt complains of no pain at this time, lights dimmed for pt comfort- call carter within reach
--- NOTE | 2024-05-27 22:34 | PC.NURSE ---
pt presents to ED from with right facial droop and complaints of being unable to close his right eye. MD Benavidez at bedside to evaluate pt. Pt stated that he was sick with a cold last week, but denies any other symptoms. MD Benavidez did not activate stroke protocol d/t exam findings. pt a&ox4 speaking in full complete sentances. Of note, pt is on eliquis for hx of afib.
[2024-05-27 23:19] VITALS: BP 148/97; PULSE 77; RESP 16; TEMP 37.1; O2SAT 96
--- NOTE | 2024-05-27 23:42 | MHC.EDTECH ---
Called Jony at [phone] for Head and Neck CTA taken at 2020, Jony stone they had no one who could read neuroscans till recently he is trying to catch up
--- NOTE | 2024-05-27 23:42 | MHC.EDTECH ---
This tech took over care of patient at 2300,rounded and introduced self to patient,vitals taken,patient is watching TV,appears to be comfortable,visitor at bedside,call carter in reach
[2024-05-28] MEDS: predniSONE 10 MG TABLET 50 MG PO (00:40)
[2024-05-28 00:59] VITALS: BP 148/97; PULSE 77; RESP 16; TEMP 37.1; O2SAT 96
[2024-05-30 18:44] LABS: A. Phagocytphilium DNA,RT-PCR NOT DETECTED (NOT DETECTED); Babesia Microti DNA, RT-PCR NOT DETECTED (NOT DETECTED); Borrelia Miyamotoi,DNA RT-PCR NOT DETECTED (NOT DETECTED); E.Chaffeensis DNA RT-PCR NOT DETECTED (NOT DETECTED); Lyme(Borrelia ssp)DNA RT-PCR NOT DETECTED (NOT DETECTED)
== END 2024-05-28 01:01 | disposition home or self-care (01) ==
PROVIDERS: Physician Assistant Medical; Emergency Provider Emergency Medicine; PCP Hospitalist
DX: G51.0 Bell's palsy (principal); I10 Essential (primary) hypertension; I48.19 Other persistent atrial fibrillation; Z79.01 Long term (current) use of anticoagulants; Z79.899 Other long term (current) drug therapy
CPT/HCPCS: 36415; 70496; 70498; 80053; 82947; 83735; 85025; 87468; 87469; 87478; 87484; 87798; 93005; 99284; 99285; Q9967

== ENCOUNTER → 2024-05-27 20:22 | Outpatient (BNV) | payer MEDICARE, SELFPAY | PROVIDERS: Emergency Provider Emergency Medicine; PCP Hospitalist; Visit Provider Internal Medicine | DX: R94.31 Abnormal electrocardiogram [ECG] [EKG] (principal) | CPT/HCPCS: 93010 ==

== ENCOUNTER 2024-06-12 09:47 | Outpatient (AMB) | payer MEDICARE, SELFPAY ==
--- NOTE | 2024-06-12 10:09 | A.OFFPC_ITS ---
Vital Signs 06/12/24 10:14 06/12/24 10:37 Height 6 ft 1 in Weight 223 lb BMI 29.4 BP 151/85 H 120/64 Blood Pressure Location Lt brachial Rt brachial Position Sitting Sitting Respiration 14 Pulse 89 Pulse Source Pulse Oximeter Pulse Oximetry (%) 98 Oxygen Delivery Method Room Air Intake Visit Reasons: TATE from Myla Intake Note: tate [employer]ion[employer] Shop Supervisor Required: No Allergies No Known Allergies Allergy (Verified 06/12/24 10:28) Medication List - Last Reconciled 06/12/24 by Luz Maria Saha, BRAZING MACHINE TENDER-BC apixaban (Eliquis) 5 mg PO BID diltiazem HCl ER 360 mg PO DAILY losartan 25 mg PO DAILY metoprolol tartrate 25 mg PO BID Tobacco use date assessed: 06/12/24 Fall risk assessment: No Falls in past year Last assessed Fall Risk: 06/12/24 Dental Screening Dental Screen Date: 06/12/24 Did you have a dental visit in the last 12 months?: Yes Did you have a dental problem in the last 6 months where you did not have access to dental care?: No Was dental information given to patient?: Patient has dentist HPI HPI Comments History of Present Illness Details 84-year-old male with persistent AFib wi th secondary hypercoagulable state, LVH, hypertension, Large right inguinal hernia, liver cysts (CT 01/2022 ABD Multiple hypoattenuating lesions are seen in the liver, the largest of which are consistent with cysts), Diverticulosis of the distal colon without diverticulitis, DJD of spine and hips, Minimal centric nonocclusive predominantly noncalcific atherosclerosis within the left and right carotid bulbs without ulceration, 1.0 cm nodule is present in the right lobe of the thyroid (CTA head/neck 05/2024), Right sided bells palsy Specialists Urology Cardiology next appt Health maintenance Echo 2021 Tdap defer today. 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 He experiences a right-sided facial droop that has persisted despite completing a prescribed steroid regimen. He is unable to close his right eye, which leads to burning and dryness sensations, for which he uses ophthalmic drops. The patient has not had an eye examination. Accompanying symptoms include a cough that developed a few days previously, described as a tickle in the throat which intensifies during prolonged conversation. The cough improves with water intake and is not accompanied by shortness of breath or wheezing. Has AFIB, managed by Cards. Denies cardiac sx. Next Cards appt Review of Systems - Ophthalmologic: Reports inability to c lose the right eye, with associated burning and dryness. Physical Exam Awake alert NAD, accompanied by Irregularly irregular LS CTAB, dry cough noted during exam R bells palsy Plan - Herndon's Palsy: Prescribe a course of ac yclovir 800 mg, three times daily with food. A referral to ophthalmology has been made. Recommend continued use of ophthalmic lubricants and advise taping the eye closed at night. Edu on facial exercises. - Cough: Monitor symptoms. Advise visiti ng if symptoms persist, worsen, or new symptoms arise. - Defer Tdap to next visit Patient was informed and verbally consented to the use of an ambient scribe for clinic note documentation during this visit. Discussion Notes I discussed the continued management of right-sided Herndon's Palsy with the patient, emphasizing the importance of completing the course of acyclovir. Potential gastrointestinal upset was addressed, advising the patient to take medication with food. Given the inability to close the right eye, I strongly recommended the ophthalmology referral and discussed the necessity of using lubricants and taping the eye at night for protection. I encouraged the patient to engage in facial exercises to aid recovery. For the cough, I explained the benign nature of today's exam and the importance of noting any symptom changes or persistence. A follow-up appointment was scheduled for his annual wellness visit in July, with a directive to complete a lipid panel a week in advance. Patient Instructions - Begin acyclovir 800 mg three times brett ly with food. - Continue using ophthalmic lubricants a nd tape closed the right eye at night. - Adhere to advised facial exercises. - Monitor the cough and report any worse chata or new symptoms. - Schedule a lipid panel one week before the July wellness visit. This note is constructed using voice recognition software. While every effort has been made to ensure accuracy in loss prevention leader, still errors may have been included Sometimes, these errors may affect the content or meaning of the given sentence . Total time spent caring for the patient today was 45 minutes. This includes time spent before the visit reviewing the chart, time spent during the visit, and time spent after the visit on documentation [facility] Medical History (Updated 06/12/24 @ 16:[address] [facility]) Abscess, scrotum Atrial fibrillation with rapid ventricular response Incisional abscess Persistent atrial fibrillation Right inguinal hernia Surgical History No pertinent past surgical history Family History Mother Breast cancer Social History Household Members: Spouse Housing: House Do you presently have visiting nurse or other home services: No Alcohol intake: never Patient Tobacco Use Status: Never used Tobacco e-Cigarette/Vaping Use: Never Used service: No Current occupational status: retired Cognitive needs: No Hearing needs: No Vision needs: No Questionnaire PHQ-9 Over the last 2 weeks, how often have you been bothered by any of the following problems? 1. Little interest or pleasure in doing things: not at all 2. Feeling down, depressed, or hopeless: not at all 3. Trouble falling or staying asleep, or sleeping too much: not at all 4. Feeling tired or having little energy: not at all 5. Poor appetite or overeating: not at all 6. Feeling bad about yourself - or that you are a failure or have let yourself or your family down: not at all 7. Trouble concentrating on things, such as reading the newspaper or watching television: not at all 8. Moving or speaking so slowly that other people could have noticed. Or the opposite - being so fidgety or restless that you have been moving around a lot more than usual: not at all 9. Thoughts that you would be better off or of hurting yourself in some way: not at all Total score: 0 Depression Screening Interpretation: Negative Depression Screening Done: Yes 89803 - PHQ-9 Billing: Yes Source: Developed by Drs. Kemar Dickerson, Anna Phelan, Kike Bhat and colleagues, with an educational stefan from [email or web address]. Thrive Questionnaire Date Thrive assessed: 06/12/24 I am a: Patient What is your living situation today?: I have a steady place to live Within the past 12 months, did the food you bought not last and you didn't have the money to get more?: I choose not to answer this question Within the past 12 months, did you worry whether your food would run out before you got money to buy more?: I choose not to answer this question Do you have trouble paying for medicines?: No Do you have trouble getting transportation to medical appointments?: No Do you have trouble paying your heating and electricity bill?: No Do you have trouble taking care of your child, family member or friend?: I choose not to answer this question Do you have trouble with day-to-day activities such as bathing, preparing meals, shopping, managing finances, etc.?: No Are you currently unemployed and looking for a job?: No Are you interested in more education?: No Please select the resources that you would like help with: None Currently or been in a relationship where the following occur: I choose not to answer THRIVE Score: 0 AUDIT C Alcohol Use Questionnaire (AUDIT-C) 1. How often do you have a drink containing alcohol?: Never Total Score: 0 Score Reviewed/Action Taken: Yes GLENDY-7 AMB Questionnaire GLENDY-7 Date GLENDY - 7 assessed: 06/12/24 Feeling nervous, anxious, or on edge: 0 = Not at all Not being able to stop or control worryin = Not at all Worrying too much about different things: 0 = Not at all Trouble relaxin = Not at all Being so restless that it is hard to sit still: 0 = Not at all Becoming easily annoyed or irritable: 0 = Not at all Feeling afraid as if something awful might happen: 0 = Not at all Total GLENDY-7 score (0-4 normal; 5-9 mild; 10-14 moderate; 15-21 severe): 0 Source: Developed by Drs. Kemar Dickerson, Anna Phelan, Kike Bhat and colleagues, with an educational stefan from [employer]. GLENDY-7 Assessment Billing GLENDY-7 Assessment Tool: GLENDY-7 Assessment 86167 Physical exam (Primary Care) Vital Signs: Last Vital Signs Pulse 89 06/12/24 10:14 Resp 14 06/12/24 10:14 BP 120/64 06/12/24 10:37 Pulse Ox 98 06/12/24 10:14 Oxygen Delivery Method Room Air 06/12/24 10:14 BMI result Body Mass Index 29.4 Tobacco/Smoking Status: Tobacco use Status Tobacco use date assessed 06/12/24 06/12/24 10:16 Patient Tobacco Use Status Never used Tobacco 06/12/24 10:10 e-Cigarette/Vaping Use Never Used 06/12/24 10:10 Depression Screening Interpretation: Negative Thrive Assessment: Date of Thrive Assessment Date Thrive assessed 06/12/24 06/12/24 10:10 Currently or been in a relationship where the following occur: I choose not to answer Coding Level of Care Code Est Pt Level 5 (56239) Complex EM visit Add On G2211 Diagnoses Hospital discharge follow-up Z09 Facial paralysis/Bertha palsy G51.0 Screening for cholesterol level Z13.220 Essential hypertension I10 Persistent atrial fibrillation I48.19 Secondary hypercoagulability disorder D68.69 Acute cough R05.1 Cough type: acute Additional Codes GLENDY-7 Assessment Billing - GLENDY-7 Assessment Tool: GLENDY-7 Assessment 57787 ([id number]) PHQ-9 - 55730 - PHQ-9 Billing: Yes ([id number]) Assessment & Plan Assessment & Plan (1) Hospital discharge follow-up: Code(s): Z09 - Encounter for follow-up examination after completed treatment for conditions other than malignant neoplasm (2) Facial paralysis/Bertha palsy: Code(s): G51.0 - Herndon's palsy Category: Medical (3) Screening for cholesterol level: Code(s): Z13.220 - Encounter for screening for lipoid disorders Category: Medical (4) Essential hypertension: Code(s): I10 - Essential (primary) hypertension Category: Medical (5) Persistent atrial fibrillation: Comment: w/ secondary hypercoaguable state, on eliquis Code(s): I48.19 - Other persistent atrial fibrillation Category: Medical (6) Secondary hypercoagulability disorder: Comment: d/t afib, on eliquis Code(s): D68.69 - Other thrombophilia Category: Medical (7) Cough: Code(s): R05.9 - Cough, unspecified Category: Medical Qualifiers: Cough type: acute Qualified Code(s): R05.1 - Acute cough Plan . Orders: Orders Lipid Panel Today Z13.220 - Encounter for screening for lipoid disorders Referrals Ophthalmology Referral G51.0 - Herndon's palsy Medications: New acyclovir 800 mg (2 x 400 mg) PO TID 60 tabs 0RF
[2024-06-12 10:14] VITALS: BP 151/85; PULSE 89; RESP 14; O2SAT 98; BMI 29.4
[2024-06-12 10:37] VITALS: BP 120/64
== END 2024-06-12 10:45 | disposition home or self-care (01) ==
PROVIDERS: PCP Hospitalist; Visit Provider Nurse Practitioner Family
DX: I48.19 Other persistent atrial fibrillation (principal); D68.69 Other thrombophilia; Z09 Encounter for follow-up examination after completed treatment for conditions other than malignant neoplasm; G51.0 Bell's palsy; Z13.220 Encounter for screening for lipoid disorders; I10 Essential (primary) hypertension; R05.1 Acute cough

== ENCOUNTER → 2024-06-12 09:47 | Outpatient (BNVA) | payer MEDICARE, SELFPAY | PROVIDERS: PCP Hospitalist; Visit Provider Nurse Practitioner Family | DX: Z09 Encounter for follow-up examination after completed treatment for conditions other than malignant neoplasm (principal); G51.0 Bell's palsy; I10 Essential (primary) hypertension; I48.19 Other persistent atrial fibrillation; D68.69 Other thrombophilia; R05.1 Acute cough | CPT/HCPCS: 96127; 99212 ==

== ENCOUNTER 2024-06-15 12:23 | Outpatient (AMB) | payer MEDICARE, SELFPAY ==
--- NOTE | 2024-06-15 12:41 | MHC.OFFVIS ---
Vital Signs 06/15/24 12:42 Height 6 ft 1 in Weight 220 lb 7.396 oz BMI 29.1 BP 130/72 Blood Pressure Location Lt brachial Position Sitting Pulse 88 Pulse Source Pulse Oximeter Intake Visit Reasons: 6m follow up Allergies No Known Allergies Allergy (Verified 06/12/24 10:28) Medication List - Last Reconciled 06/15/24 by Isma Mcgowan MD acyclovir 800 mg (2 x 400 mg) PO TID apixaban (Eliquis) 5 mg PO BID diltiazem HCl ER 360 mg PO DAILY losartan 25 mg PO DAILY metoprolol tartrate 25 mg PO BID HPI Comments Details: Mikey returns for follow-up regarding atrial fibrillation and hypertension. From the cardiac standpoint, he does not have any symptoms. However, recently it seems that he developed Herndon's palsy and is recovering from that. [facility] Medical History (Updated 06/15/24 @ 12:58 by Isma Mcgowan MD) Abscess, scrotum Atrial fibrillation with rapid ventricular response Incisional abscess Persistent atrial fibrillation Right inguinal hernia Surgical History No pertinent past surgical history Family History Mother Breast cancer Social History Household Members: Spouse Housing: House Do you presently have visiting nurse or other home services: No Alcohol intake: never Patient Tobacco Use Status: Never used Tobacco e-Cigarette/Vaping Use: Never Used service: No Current occupational status: retired Cognitive needs: No Hearing needs: No Vision needs: No Review of Systems Const Denies weakness ENT Denies dizziness Card Denies chest pain, Denies chest pain with activity, Denies syncope, Denies rapid heart rate, Denies pedal edema, Denies edema, Denies leg edema, Denies lightheadedness, Denies palpitations, Denies dyspnea, Denies dyspnea on exertion and Denies orthopnea Resp Denies cough, Denies dyspnea and Denies dyspnea on exertion GI Denies hematochezia and Denies change in stool character Musc Denies abnormal gait, Denies muscle cramps, Denies muscle weakness, Denies numbness, Denies radiating pain into limb and Denies tingling Neuro Denies abnormal gait, Denies dizziness, Denies syncope, Denies numbness, Denies tingling and Denies weakness Endo Denies palpitations Physical Exam Vital Signs: Last Vital Signs Pulse 88 06/15/24 12:42 BP 130/72 06/15/24 12:42 BMI result Body Mass Index 29.1 Const General: comfortable and no acute distress Orientation/consciousness: patient oriented x3 HEENT Other: Unremarkable Head: Yes normal to inspection Neck Neck: Yes normal visual inspection Chest Chest palpation & inspection: normal inspection of the chest Resp Auscultation: clear to auscultation bilaterally Cardio Palpation: normal PMI Heart sounds: S1 normal heart sound present, S2 normal heart sound present, no gallops, no murmurs and no rubs GI Palpation (GI): Soft to palpation Back/Spine/Pelvis Other: unremarkable Skin General skin exam: no rashes or lesions noted Neuro Other: Right-sided Herndon's palsy General: patient oriented x3 Extrem General: Yes normal to inspection Psych Mental Status: mental status grossly normal Assessment & Plan Assessment & Plan (1) Persistent atrial fibrillation: Code(s): I48.19 - Other persistent atrial fibrillation Category: Medical Plan: Continue diltiazem and metoprolol. Continue Eliquis. Stable renal function. (2) Essential hypertension: Code(s): I10 - Essential (primary) hypertension Category: Medical Plan: Stable. No changes. Plan Total time spent including review of data, counseling, documentation, coordination of care-31 minutes. Coding Level of Care Code Est Pt Level 4 (43459) Diagnoses Persistent atrial fibrillation I48.19 Essential hypertension I10
[2024-06-15 12:42] VITALS: BP 130/72; PULSE 88; BMI 29.1
== END 2024-06-15 12:57 | disposition home or self-care (01) ==
PROVIDERS: PCP Hospitalist; Visit Provider Internal Medicine
DX: I48.19 Other persistent atrial fibrillation (principal); I10 Essential (primary) hypertension
CPT/HCPCS: 99214

== ENCOUNTER → 2024-06-15 12:23 | Outpatient (BNVA) | payer MEDICARE, SELFPAY | PROVIDERS: PCP Hospitalist; Visit Provider Internal Medicine | DX: I48.19 Other persistent atrial fibrillation (principal); I10 Essential (primary) hypertension | CPT/HCPCS: 99212 ==

== ENCOUNTER 2024-08-16 11:41 | Outpatient (AMB) | payer MEDICARE, SELFPAY ==
--- NOTE | 2024-08-16 11:46 | A.OFFVIS_ITS ---
Intake Vital Signs 08/16/24 12:02 Height 6 ft 1 in Weight 213 lb BMI 28.1 BP 120/68 Blood Pressure Location Lt brachial Position Sitting Respiration 13 Pulse 68 Pulse Source Pulse Oximeter Temp 96.9 F Temp Source Oral Pulse Oximetry (%) 98 Oxygen Delivery Method Room Air Intake Visit Reasons: Ghanshyam AWV labs 1 week before Intake Note: awv visit with follow up on labs Nursing Resident Required: No Allergies No Known Allergies Allergy (Verified 08/16/24 12:09) Medication List - Last Reconciled 08/16/24 by Luz Maria Saha, [facility]- apixaban (Eliquis) 5 mg PO BID diltiazem HCl ER 360 mg PO DAILY losartan 25 mg PO DAILY metoprolol tartrate 25 mg PO BID Do you need a note to return to daycare/school/sports/work: No HPI HPI Comments History of Present Illness Details 84-year-old male with persistent AFib wi th secondary hypercoagulable state, LVH, hypertension, Large right inguinal hernia, liver cysts (CT 01/2022 ABD Multiple hypoattenuating lesions are seen in the liver, the largest of which are consistent with cysts), Diverticulosis of the distal colon without diverticulitis, DJD of spine and hips, Minimal centric nonocclusive predominantly noncalcific atherosclerosis within the left and right carotid bulbs without ulceration, 1.0 cm nodule is present in the right lobe of the thyroid (CTA head/neck 05/2024), Right sided bells palsy Here today for AWV. The Medicare Annual Wellness Visit (AWV) is a yearly appointment with a health professional to identify health risks and help reduce them and to create or update a personalized prevention plan. During a Medicare AWV, health professionals should also review any current opioid prescriptions, detect any cognitive impairment, and establish or update medical and family history. SurgHx: Y FHx: Y SocHx: Y Health Maintenance: See scanned preventative medicine assessment with personalized health plan and screening schedule. Colon: declined Vaccines: due for Tdap otherwise utd AAA screen: n/a EKG: NA managed by Cards [place] of Care: Urology Cardiology appt 05/2024 [facility] Visual Acuity: Wears glasses, active w [facility] Hearing Screening: No aides, no complaints ACP: has living will at home and HCP. Blank forms provided today. Dietary/Nutrition/Exercise Edu provided: Y Results: Echo 2021 Labs UTD except Lipids 05/2024 Lipid panel 08/08/2024 shows total cholesterol 207, LDL 145, HDL 36, triglycerides 131 A1c today 5.4% During the course of the visit the patient was educated and counseled about appropriate screening and preventative services. Patient instructions were provided to the patient in written or electronic format. I have reviewed and verified the above information. History of Present Illness The patient is an 84-year-old male presenting with an annual Medicare wellness visit & chronic dz mgmt. His significant medical history includes atrial fibrillation and hypertension. He has been experiencing symptoms of Herndon's Palsy, which remains unresolved, leading to blurred vision managed with ocular ointment. The patient noted no significant changes after visiting an automotive sales specialist, although recent self-observations suggest some improvement. He applies ointment multiple times daily to alleviate symptoms, but if withheld, burning sensations occur. The patient experienced an unremarkable appointment with a kitchen steward. Recent lab work indicated elevated cholesterol levels, with a low-density lipoprotein (LDL) level of 145 mg/dL and a total cholesterol of 207 mg/dL. Additional history notes stable mood, absence of depressive symptoms, no recent falls, and unchanged independent functional status, with the patient managing activities of daily living independently. Social History - The patient is active in performing [facility] living activities independently. - He does not utilize hearing aids and h as historically abstained from having a colonoscopy. - He reports normal current nutritional intake but does not consistently engage in formal exercise or structured physical activities. Exam General: Well developed, well nourished, in no acute distress. Appears stated age. Head: Normocephalic, atraumatic. Eyes: Pupils are equal, round and reactive to light and accommodation. Conjunctivae are clear. Abnormal vision R eye d/t ointment for bells palsy. Wearing glasses Ears: TMs clear AU, EACS WNL Nose: Patent, without discharge. Mouth: There are no ulcers or lesions noted. No inflammation, no post nasal drip, no plaques nor exudates. Neck: Supple, no adenopathy or thyromegaly. Lungs: Clear to auscultation bilaterally. No rales, rhonchi or wheeze noted. Good air flow in all almeida. Heart: Irregularly irregular Abdomen: Bowel sounds present in all quadrants. The abdomen is soft, nontender, with no masses or organomegaly noted. Musculoskeletal: Joints are nontender, without swelling, redness, or effusions. Range of motion is observed to be normal. Pulses: Peripheral pulses are equal and palpable bilaterally. Hairless, skin intact Extremities: No clubbing, cyanosis nor edema is noted. Neurologic: Gait and station normal. 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 Turgor is good. Skin color is good. Hair and nails are without abnormalities. Psych: Normal eye contact, affect and mood appropriate, and normal interactions. Patient is alert and appropriate to context. Plan - Start atorvastatin, 1 tablet daily, fo r hypercholesterolemia management to lower LDL cholesterol to target levels. - Continue Herndon's Palsy management with ocular ointment, and consider taping the eye shut at night with soft paper tape to maintain ocular moisture. - Reassess cholesterol levels with repea t labs in six months to evaluate atorvastatin effectiveness. - Administer a tetanus booster as part o f preventative care. - Schedule for ongoing monitoring of hyp ertension and atrial fibrillation through regular appointments. - Maintain current activities for mainta ining independence in daily living tasks. Patient was informed and verbally consented to the use of an ambient scribe for clinic note documentation during this visit. Discussion Notes During today?s visit, I thoroughly reviewed the patient's current chronic conditions, including atrial fibrillation, hypertension, and Herndon's Palsy. I discussed starting atorvastatin to manage his elevated cholesterol levels and its expected benefits, efficacy, and necessity, initiating therapy to aim for target LDL cholesterol levels below 70 mg/dL. I also elaborated on the potential side effects and advised the patient to report any adverse effects. We revisited the Herndon's Palsy management strategy, noting the possibility of using soft paper tape to assist in eye closure to prevent dryness. Given his stable cardiovascular status, no changes were made to his heart medication regimen. Anticipatory care regarding preventative vaccines was also discussed, leading to the administration of a tetanus booster. We reviewed screening findings, confirming normal diabetes screening results, and expressed satisfaction with these results. Patient Instructions - Start taking atorvastatin, 1 tablet da fay. This can be taken in the morning or at night. - Continue applying ocular ointment as b efore to manage Herndon's Palsy symptoms. - Purchase soft paper tape from the drug store to tape the right eye shut at night. - Expect follow-up labs to monitor paula sterol levels six months from now. - Receive the tetanus booster before scottjuan francisco anderson the office today. - Continue normal activities of daily li justin and maintain current dietary habits. - Return for scheduled follow-up appoint ments or immediately if new symptoms arise or current conditions worsen. An additional 30 minutes was spent addressing the problem(s) noted at todays visit. This includes time spent before the visit reviewing the chart, time spent during the visit, and time spent after the visit on documentation reviewing laboratory results, diagnostic imaging, medications, performing a medically necessary evaluation, counseling on diagnoses, care coordination, ordering appropriate tests, ordering appropriate medications, review of tests performed by other providers, reporting test results with the patient, communication with other healthcare providers. [facility] Medical History (Updated 08/16/24 @ 17:[address] [facility]) Abscess, scrotum Atrial fibrillation with rapid ventricular response Incisional abscess Persistent atrial fibrillation Right inguinal hernia Surgical History No pertinent past surgical history Family History Mother Breast cancer Social History Household Members: Spouse Housing: House Do you presently have visiting nurse or other home services: No Alcohol intake: never Patient Tobacco Use Status: Never used Tobacco e-Cigarette/Vaping Use: Never Used service: No Current occupational status: retired Cognitive needs: No Hearing needs: No Vision needs: No Questionnaire Medicare Wellness Checkup What is your age?: 80 or older What gender do you identify with?: male During the past 4 weeks, how much have you been bothered by emotional problems such as feeling anxious, depressed, irritable, sad or downhearted, and blue?: not at all During the past 4 weeks, has your physical & emotional health limited your social activities with family, friends, neighbors, or groups?: not at all During the past 4 weeks, how much bodily pain have you generally had?: no pain During the past 4 weeks, was someone available to help you if you needed & wanted help?: yes, as much as I wanted During the past 4 weeks, what was the hardest physical activity you could do for at least 2 minutes?: moderate Can you get to places out of walking distance without help? (For eg., can you travel alone on buses, taxis or drive your car?): Yes Can you go shopping for groceries or clothes without someone's help?: Yes Can you prepare your own meals?: Yes Can you do your housework without help?: Yes Because of any health problems, do you need the help of another person with your personal care needs such as eating, bathing, dressing or getting around the house?: No Can you handle your own money without help?: Yes During the past 4 weeks, how would you rate your health in general?: good During the past 4 weeks how have things been going for you?: pretty well Are you having difficulties driving your car?: no Do you always fasten your seat belt when you are in a car?: yes, usually During past 4 weeks, have you been bothered by the following: never: Falling or dizzy when standing up, Sexual problems?, Trouble eating well?, Teeth or denture problems?, Problems using the telephone? and Tiredness or fatigue? Have you fallen 2 or more times in the past year?: No Are you afraid of falling?: No Are you a smoker?: no During the past 4 weeks, how many drinks of wine, beer, or other alcoholic beverages did you have?: no alcohol at all Do you exercise for about 20 minutes 3 or more times a week?: no, I usually do not exercise this much Have you been given information to help with the following?: no: Hazards in your house that might hurt you? and no: Keeping track of your medications? How often do you have trouble taking medicines the way you have been told to take them?: I always take medicine as prescribed How confident are you that you can control & manage most of your health problems?: very confident What is your race?: White Activity of Daily Living Bathing - sponge bath, tub bath or shower: receives no assistance (gets in/out by self, if usual bathing means Dressing - getting clothes from closets & drawers, including inner/outer garment s & fasteners.: gets clothes & gets completely dressed without help Toileting - going to the 'toilet room' for urine/bowel elimination & cleaning self/arranging clothes: goes to toilet room, cleans self, arranges clothes without help Transfer: moves in & out of bed and chair without help (may use support object) Continence: controls urination/bowel movements completely by self Feeding: feeds self without help Total Score: 0 Information obtained from: patient Using telephone: independent Traveling: independent Shopping: independent Preparing meals: independent Housework: independent Taking medicine: independent Managing money: independent PHQ-9 Over the last 2 weeks, how often have you been bothered by any of the following problems? 1. Little interest or pleasure in doing things: not at all 2. Feeling down, depressed, or hopeless: not at all 3. Trouble falling or staying asleep, or sleeping too much: not at all 4. Feeling tired or having little energy: not at all 5. Poor appetite or overeating: not at all 6. Feeling bad about yourself - or that you are a failure or have let yourself or your family down: not at all 7. Trouble concentrating on things, such as reading the newspaper or watching television: not at all 8. Moving or speaking so slowly that other people could have noticed. Or the opposite - being so fidgety or restless that you have been moving around a lot more than usual: not at all 9. Thoughts that you would be better off or of hurting yourself in some way: not at all Total score: 0 Depression Screening Interpretation: Negative Depression Screening Done: Yes 29114 - PHQ-9 Billing: Patient declined-do not bill Source: Developed by Drs. Kemar Dickerson, Anna Phelan, Kike Bhat and colleagues, with an educational stefan from [employer]. Physical Exam Vital Signs: Last Vital Signs Temp 96.9 F 08/16/24 12:02 Pulse 68 08/16/24 12:02 Resp 13 08/16/24 12:02 BP 120/68 08/16/24 12:02 Pulse Ox 98 08/16/24 12:02 Oxygen Delivery Method Room Air 08/16/24 12:02 BMI result Body Mass Index 28.1 Office Procedures Vision Screening Right Eye: 20/100 ointment in eye Left Eye: 20/25 Bilateral: 20/25 Color: Pass Corrected: Pass (with glasses) 85130 - Vision Screening Results AMB Hemoglobin A1c AMB Hemoglobin A1c 5.4 % Last Edit by Brionna Loco MA on 08/16/24 12:16 Immunizations Boostrix Tdap 2.5 Lf unit-8 mcg-5 Lf/0.5 mL intramuscular syringe Performing Provider: OPHELIA Hayes Performing Location: [facility] Administered by: Kimmy Lloyd RN on 08/16/24 12:50 Dose Route Admin Location Dispensed Lot Number Expiration Date [place] Silviculturist 0.5 mL IM Right Deltoid 0.5 mL [id number] 08/16/26 [id number] Dead Inventory Management System VIS Given Date VIS Provided VIS Publication Date 08/16/24 Single Vaccine 21 Eligibility Eligibility Date Funding Source Not [facility] Eligible 08/16/24 Private Results Reviewed Results Reviewed: Laboratory Last Values Hgb A1c (Clinic) 5.4 % (4.0-6.0) 08/16/24 11:47 Assessment & Plan Assessment & Plan (1) Encounter for subsequent annual wellness visit (AWV) in Medicare patient: Code(s): Z00.00 - Encounter for general adult medical examination without abnormal findings (2) Full code status: Code(s): Z78.9 - Other specified health status (3) ACP (advance care planning): Code(s): Z71.89 - Other specified counseling (4) Hyperlipidemia: Code(s): E78.5 - Hyperlipidemia, unspecified Qualifiers: Hyperlipidemia type: mixed hyperlipidemia Qualified Code(s): E78.2 - Mixed hyperlipidemia (5) Essential hypertension: Code(s): I10 - Essential (primary) hypertension (6) Facial paralysis/Denhoff palsy: Code(s): G51.0 - Herndon's palsy (7) Persistent atrial fibrillation: Code(s): I48.19 - Other persistent atrial fibrillation (8) Secondary hypercoagulability disorder: Comment: d/t afib, on eliquis Code(s): D68.69 - Other thrombophilia (9) Need for Tdap vaccination: Code(s): Z23 - Encounter for immunization (10) Liver cyst: Comment: liver cysts (CT 01/2022 ABD Multiple hypoattenuating lesions are seen in the liver, the largest of which are consistent with cysts), Code(s): K76.89 - Other specified diseases of liver (11) Diverticulosis of colon: Comment: Diverticulosis of the distal colon without diverticulitis, CT 01/2022 Code(s): K57.30 - Diverticulosis of large intestine without perforation or abscess without bleeding (12) Degenerative joint disease of spine: Code(s): M47.9 - Spondylosis, unspecified Qualifiers: Spinal region: lumbosacral Spinal osteoarthritis complication: without myelopathy or radiculopathy Qualified Code(s): M47.817 - Spondylosis without myelopathy or radiculopathy, lumbosacral region (13) CAD (coronary artery disease): Comment: Minimal centric nonocclusive predominantly noncalcific atherosclerosis within the left and right carotid bulbs without ulceration CT head/neck 05/2024 Code(s): I25.10 - Atherosclerotic heart disease of [place] coronary artery without angina pectoris Qualifiers: Coronary Disease-Associated Artery/Lesion type: [place] artery [place] vs. transplanted heart: [place] heart Associated angina: without angina Qualified Code(s): I25.10 - Atherosclerotic heart disease of [place] coronary artery without angina pectoris (14) Thyroid nodule incidentally noted on imaging study: Comment: 1.0 cm nodule is present in the right lobe of the thyroid (CTA head/neck 05/2024) Code(s): E04.1 - Nontoxic single thyroid nodule Plan . Orders: Orders Lipid Panel 6 Months E78.5 - Hyperlipidemia, unspecified AMB Hemoglobin A1c Today Z13.9 - Encounter for screening, unspecified TDaP Immunization Today Z23 - Encounter for immunization Medications: New atorvastatin 20 mg PO BEDTIME 90 tabs 2RF Patient Instructions: Patient Instructions - Start taking atorvastatin, 1 tablet daily. This can be taken in the morning or at night. - Continue applying ocular ointment as before to manage Herndon's Palsy symptoms. - Purchase soft paper tape from the drugstore to tape the right eye shut at [facility]. - Expect follow-up labs to monitor cholesterol levels six months from now. - Receive the tetanus booster before leaving the office today. - Continue normal activities of daily living and maintain current dietary habits. - Return for scheduled follow-up appointments or immediately if new symptoms arise or current conditions worsen. Health screenings for men You should visit your health care provider regularly, even if you feel healthy. The purpose of these visits is to: Screen for medical issues Assess your risk for future medical problems Encourage a healthy lifestyle Update vaccinations and other preventive care services Help you get to know your provider in case of an illness Information Even if you feel fine, you should still see your provider for regular checkups. These visits can help you avoid problems in the future. For example, the only way to find out if you have high blood pressure is to have it checked regularly. High blood sugar and high cholesterol level also may not have any symptoms in the early stages. Simple blood tests can check for these conditions. There are specific times when you should see your provider or receive specific health screenings. The [place] Preventive Services Task Force publishes a list of recommended screenings. Below are screening guidelines for men ages 40 to 64. BLOOD PRESSURE SCREENING Have your blood pressure checked at least once every year. Watch for blood pressure screenings in your area. Ask your provider if you can stop in to have your blood pressure checked. Ask your provider if you need your blood pressure checked more often if: You have diabetes, heart disease, kidney problems, or are overweight or have certain other health conditions You have a first-degree relative with high blood pressure You are Black Your blood pressure top number is from 120 to 129 mm Hg, or the bottom number is from 70 to 79 mm Hg If the top number is 130 mm Hg or greater or the bottom number is 80 mm Hg or greater, this is considered stage 1 hypertension. Schedule an appointment with your provider to learn how you can lower your blood pressure. Effects of age on blood pressure CHOLESTEROL SCREENING Cholesterol screening should begin at age 35 for men with no known risk factors for coronary heart disease. Repeat cholesterol screening should take place: Every 5 years for men with normal cholesterol levels More often if changes occur in lifestyle (including weight gain and diet) More often if you have diabetes, heart disease, kidney problems, or certain other conditions COLORECTAL CANCER SCREENING If you are under age 45, talk to your provider about getting screened. You may need to be screened if you have a strong family history of colon cancer or polyps. Screening may also be considered if you have risk factors such as a history of inflammatory bowel disease or polyps. If you are age 45 to 75, you should be screened for colorectal cancer. There are several screening tests available: A stool-based fecal occult blood (gFOBT) or fecal immunochemical test (FIT) every year A stool sDNA test every 1 to 3 years Flexible sigmoidoscopy every 5 years or every 10 years with stool testing FIT done every year CT colonography (virtual colonoscopy) every 5 years Colonoscopy every 10 years You may need a colonoscopy more often if you have risk factors for colorectal cancer, such as: Ulcerative colitis A personal or family history of colorectal cancer A history of growths in your colon called adenomatous polyps DENTAL EXAM Go to the dentist once or twice every year for an exam and cleaning. Your dentist will evaluate if you have a need for more frequent visits. DIABETES SCREENING All adults who do not have risk factors for diabetes should be screened starting at age 35 and repeated every 3 years. If you have other risk factors for diabetes, such as a first degree relative with diabetes, overweight or obesity, high blood pressure, prediabetes, or a history of heart disease, you may be tested more often. If you are overweight and have other risk factors, such as high blood pressure and are planning to become , screening is recommended. EYE EXAM Have an eye exam every 2 to 4 years ages 40 to 54 and every 1 to 3 years ages 55 to 64. Your provider may recommend more frequent eye exams if you have vision problems or glaucoma risk. Have an eye exam that includes an examination of your retina (back of your eye) at least every year if you have diabetes. IMMUNIZATIONS Commonly needed vaccines include: Flu shot: get one every year COVID-19 vaccine: ask your provider what is best for you Tetanus-diphtheria and acellular pertussis (Tdap) vaccine: have as one of your tetanus-diphtheria vaccines if you did not receive it as an adolescent Tetanus-diphtheria: have a booster (or Tdap) every 10 years Varicella vaccine: receive 2 doses if you never had chickenpox or the varicella vaccine and were born in 1980 or after Hepatitis B vaccine: receive 2, 3, or 4 doses, depending on your exact c ircumstances, if you did not receive these as a child or adolescent, until age 59 Shingles (herpes zoster) vaccine: at or after age 50 Ask your provider if you should receive other immunizations, especially if you have certain medical conditions, such as diabetes or are at increased risk for some diseases such as pneumonia. INFECTIOUS DISEASE SCREENING Screening for hepatitis C: all adults ages 18 to 79 should get a one-time test for hepatitis C. Screening for human immunodeficiency virus (HIV): all people ages 15 to 65 should get a one-time test for HIV. Depending on your lifestyle and medical history, you may need to be screened for infections such as syphilis, chlamydia, and other infections. LUNG CANCER SCREENING You should have an annual screening for lung cancer with low-dose computed tomography (LDCT) if: You are age 50 to 80 years AND You have a 20 pack-year smoking history AND You currently smoke or have quit within the past 15 years OSTEOPOROSIS SCREENING If you are age 50 to 64 and have risk factors for osteoporosis, you should discuss screening with your provider. Risk factors can include long-term steroid use, low body weight, smoking, heavy alcohol use, having a fracture after age 50, or a family history of hip fracture or osteoporosis. Osteoporosis PHYSICAL EXAM All adults should visit their provider from time to time, even if they are healthy. The purpose of these visits is to: Screen for diseases Assess risk of future medical problems Encourage a healthy lifestyle Update vaccinations and other preventive care services Maintain a relationship with a provider in case of an illness Your height, weight, and body mass index (BMI) should be checked at every exam. During your exam, your provider may ask you about: Depression and anxiety Diet and exercise Alcohol and tobacco use Safety, such as use of seat belts and smoke detectors Your medicines and risk for interactions PROSTATE CANCER SCREENING If you're 55 through 69 years old, before having the test, talk to your provider about the pros and cons of having a PSA test. Ask about: Whether screening decreases your chance of dying from prostate cancer. Whether there is any harm from prostate cancer screening, such as side effects from testing or overtreatment of cancer when discovered. Whether you have a higher risk of prostate cancer than others. If you are age 55 or younger, screening is not generally recommended. You should talk with your provider about if you have a higher risk for prostate cancer. Risk factors include: Having a family history of prostate cancer (especially a brother or father) Being If you choose to be tested, the PSA blood test is repeated over time (yearly or less often), though the best frequency is not known. Prostate examinations are no longer routinely done on men with no symptoms. Prostate cancer SKIN EXAM Your provider may check your skin for signs of skin cancer, especially if you're at high risk. People at high risk include those who have had skin cancer before, have close relatives with skin cancer, or have a weakened immune system. TESTICULAR EXAM The [place] Preventive Services Task Force (USPSTF) now recommends against performing testicular self-exams. Doing testicular self-exams has been shown to have little to no benefit. Quality Reporting (2019) Adult ([facility] 138/09/16/68) Smoking risk assessment performed?: Yes Patient Tobacco Use Status: Never used Tobacco Depression screening performed: Yes Screen Results: Yes Negative screen Recommended changes: lifestyle Systolic BP not done?: No Diastolic BP not done?: No BMI screening not done: No Sexual Activity Screening ([facility] 153) Sexually active?: Yes Immunizations ([facility] 147, 117) Annual Influenza Vaccine: Yes Measles Antibody Test: No Mumps Antibody Test: No Rubella Antibody Test: No Varicella Antibody Test: No Anti Hepatitis A IgG Antigen test: No Anti Hepatitis B Virus Surface Ab test: No Fall Risk Screening ([facility] 139) Last assessed Fall Risk: 08/16/24 Fall risk assessment: No Falls in past year Dementia Assessment ([facility] 149) Cognitive assessment recorded: Yes Assessment of cognition with standardized tool: Yes (09/22 6 CIT ) Depression/Bipolar (159/160/161/177) PHQ-9: Total score: 0 Ophthalmol:Cataracts Visual Acuity (133) Visual acuity exam performed: Yes (see results ) Coding Level of Care Code Medicare Subsequent (G0439) Est Pt Level 4 (47082) Diagnoses Encounter for subsequent annual wellness visit (AWV) in Medicare patient Z00.00 Full code status Z78.9 ACP (advance care planning) Z71.89 Mixed hyperlipidemia E78.2 Hyperlipidemia type: mixed hyperlipidemia Essential hypertension I10 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 Persistent atrial fibrillation I48.19 Secondary hypercoagulability disorder 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 transplanted heart: [place] heart Associated angina: without angina Thyroid nodule incidentally noted on imaging study E04.1 CPT Codes Advance Care Planning - Time spent: 1-15 minutes, not on file ([id number]) Vision Screening - Vision Screenin - Vision Screening ([id number]) Advance Care Planning Advance Care Planning discussion: Exists, not on file Date of discussion: 08/16/24 Who was present: and patient Forms completed: Health Care Proxy, MOLST and Living will Time spent: 1-15 minutes, not on file Actual minutes spent: 5
[2024-08-16 12:02] VITALS: BP 120/68; PULSE 68; RESP 13; TEMP 36.1; O2SAT 98; BMI 28.1
== END 2024-08-16 12:49 | disposition home or self-care (01) ==
PROVIDERS: PCP Hospitalist; Visit Provider Nurse Practitioner Family
DX: Z00.00 Encounter for general adult medical examination without abnormal findings (principal); I48.19 Other persistent atrial fibrillation; D68.69 Other thrombophilia; E78.2 Mixed hyperlipidemia; I10 Essential (primary) hypertension; G51.0 Bell's palsy; Z23 Encounter for immunization; K76.89 Other specified diseases of liver; K57.30 Diverticulosis of large intestine without perforation or abscess without bleeding; M47.817 Spondylosis without myelopathy or radiculopathy, lumbosacral region

== ENCOUNTER → 2024-08-16 11:41 | Outpatient (BNVA) | payer MEDICARE, SELFPAY | PROVIDERS: PCP Hospitalist; Visit Provider Nurse Practitioner Family | DX: Z00.00 Encounter for general adult medical examination without abnormal findings (principal); Z23 Encounter for immunization; Z13.1 Encounter for screening for diabetes mellitus; E78.2 Mixed hyperlipidemia; I10 Essential (primary) hypertension; I48.19 Other persistent atrial fibrillation; G51.0 Bell's palsy; D68.69 Other thrombophilia; K76.89 Other specified diseases of liver; K57.30 Diverticulosis of large intestine without perforation or abscess without bleeding; M47.817 Spondylosis without myelopathy or radiculopathy, lumbosacral region; I25.10 Atherosclerotic heart disease of native coronary artery without angina pectoris; E04.1 Nontoxic single thyroid nodule; Z78.9 Other specified health status; Z71.89 Other specified counseling | CPT/HCPCS: 83036; 90471; 90715; 99212 ==

== ENCOUNTER 2024-10-13 10:08 | Outpatient (AMB) | payer MEDICARE, SELFPAY ==
--- NOTE | 2024-10-13 10:34 | MHC.PC.OV ---
Vital Signs 10/13/24 10:54 Height 6 ft 1 in Weight 208 lb 4 oz BMI 27.5 BP 138/78 Blood Pressure Location Lt brachial Position Sitting Respiration 13 Pulse 83 Pulse Source Pulse Oximeter Temp 97.3 F Temp Source Oral Pulse Oximetry (%) 98 Oxygen Delivery Method Room Air Intake Visit Reasons: Pre-Op for Ectropion repair surgery Intake Note: Pre op for ectropion repair surgery Boom Conveyor Operator Required: No Allergies No Known Allergies Allergy (Verified 10/13/24 11:22) Medication List - Last Reconciled 10/13/24 by Luz Maria Saha, ACCESS CLERK- apixaban (Eliquis) 5 mg PO BID atorvastatin 20 mg PO BEDTIME diltiazem HCl ER 360 mg PO DAILY losartan 25 mg PO DAILY metoprolol tartrate 25 mg PO BID Tobacco use date assessed: 10/13/24 Fall risk assessment: No Falls in past year Last assessed Fall Risk: 10/13/24 Dental Screening Dental Screen Date: 10/13/24 Did you have a dental visit in the last 12 months?: Yes Did you have a dental problem in the last 6 months where you did not have access to dental care?: No Was dental information given to patient?: Patient has dentist HPI HPI Comments History of Present Illness Details 84-year-old male with persistent AFib with secondary hypercoagulable state, LVH, hypertension, Large right inguinal hernia, liver cysts (CT 01/2022 ABD Multiple hypoattenuating lesions are seen in the liver, the largest of which are consistent with cysts), Diverticulosis of the distal colon without diverticulitis, DJD of spine and hips, Minimal centric nonocclusive predominantly noncalcific atherosclerosis within the left and right carotid bulbs without ulceration, 1.0 cm nodule is present in the right lobe of the thyroid (CTA head/neck 05/2024), Right sided bells palsy Here today for preoperative clearance. Surgery Type:Ectropion repair surgery right lower lid Anesthesia Type: MAC Surgeon: Dr Asad Iglesias @ [facility] Date: October 18, 2024 Any past surgical procedures: Yes Any complications from anesthesia or in post-op period: none ASA or NSAID Use: no on eliquis, advised to hold 48 hours prior to surgery Current smoker: no Alcohol use: no Drug use: no METs: > 4 climb flight of stairs, golf, walk, yardwork Medical history: Asthma N COPD N Obesity N Diabetes N EKG: NA managed by Cards Results: Echo 2021 Labs UTD except Lipids 05/2024 Lipid panel 08/08/2024 shows total cholesterol 207, LDL 145, HDL 36, triglycerides 131 A1c 5.4% Exam General: Well developed, well nourished, in no acute distress. Appears stated age. Eyes: Pupils are equal, round and reactive to light and accommodation. Conjunctivae are clear. Abnormal vision R eye for bells palsy. Wearing glasses Lungs: Clear to auscultation bilaterally. No rales, rhonchi or wheeze noted. Good air flow in all almeida. Heart: Irregularly irregular . Pulses: Peripheral pulses are equal and palpable bilaterally. Hairless, skin intact Extremities: No clubbing, cyanosis nor edema is noted. Neurologic: Gait and station normal. Justice Palsy on R Skin: No rashes, ulcers, or lesions noted. Turgor is good. Skin color is good. Hair and nails are without abnormalities. Psych: Normal eye contact, affect and mood appropriate, and normal interactions. Patient is alert and appropriate to context. Plan Medically cleared to proceed w/ above surgery Asked staff to fax my note FAX Number: [phone] [facility] Medical History (Updated 08/16/24 @ 17:12 by Luz Maria Saha, [facility]) Abscess, scrotum Atrial fibrillation with rapid ventricular response Incisional abscess Persistent atrial fibrillation Right inguinal hernia Surgical History No pertinent past surgical history Family History Mother Breast cancer Social History Household Members: Spouse Housing: House Do you presently have visiting nurse or other home services: No Alcohol intake: never Patient Tobacco Use Status: Never used Tobacco e-Cigarette/Vaping Use: Never Used service: No Current occupational status: retired Cognitive needs: No Hearing needs: No Vision needs: No Questionnaire PHQ-9 Over the last 2 weeks, how often have you been bothered by any of the following problems? 1. Little interest or pleasure in doing things: not at all 2. Feeling down, depressed, or hopeless: not at all 3. Trouble falling or staying asleep, or sleeping too much: not at all 4. Feeling tired or having little energy: not at all 5. Poor appetite or overeating: not at all 6. Feeling bad about yourself - or that you are a failure or have let yourself or your family down: not at all 7. Trouble concentrating on things, such as reading the newspaper or watching television: not at all 8. Moving or speaking so slowly that other people could have noticed. Or the opposite - being so fidgety or restless that you have been moving around a lot more than usual: not at all 9. Thoughts that you would be better off or of hurting yourself in some way: not at all Total score: 0 Depression Screening Interpretation: Negative Depression Screening Done: Yes 63029 - PHQ-9 Billing: Yes Source: Developed by Drs. Kemar Dickerson, Anna Phelan, Kike Bhat and colleagues, with an educational stefan from [employer]. Thrive Questionnaire Date Thrive assessed: 10/13/24 I am a: Patient What is your living situation today?: I have a steady place to live Within the past 12 months, did the food you bought not last and you didn't have the money to get more?: Never true Within the past 12 months, did you worry whether your food would run out before you got money to buy more?: Never true Do you have trouble paying for medicines?: No Do you have trouble getting transportation to medical appointments?: No Do you have trouble paying your heating and electricity bill?: No Do you have trouble taking care of your child, family member or friend?: No Do you have trouble with day-to-day activities such as bathing, preparing meals, shopping, managing finances, etc.?: No Are you currently unemployed and looking for a job?: No Are you interested in more education?: No Please select the resources that you would like help with: None Currently or been in a relationship where the following occur: I choose not to answer THRIVE Score: 0 AUDIT C Alcohol Use Questionnaire (AUDIT-C) 1. How often do you have a drink containing alcohol?: Never Total Score: 0 Score Reviewed/Action Taken: Yes GLENDY-7 AMB Questionnaire GLENDY-7 Date GLENDY - 7 assessed: 10/13/24 Feeling nervous, anxious, or on edge: 0 = Not at all Not being able to stop or control worryin = Not at all Worrying too much about different things: 0 = Not at all Trouble relaxin = Not at all Being so restless that it is hard to sit still: 0 = Not at all Becoming easily annoyed or irritable: 0 = Not at all Feeling afraid as if something awful might happen: 0 = Not at all Total GLENDY-7 score (0-4 normal; 5-9 mild; 10-14 moderate; 15-21 severe): 0 Source: Developed by Drs. Kemar Dickerson, Anna Phelan, Kike Bhat and colleagues, with an educational stefan from [employer]. GLENDY-7 Assessment Billing GLENDY-7 Assessment Tool: GLENDY-7 Assessment 22179 Physical exam (Primary Care) Vital Signs: Last Vital Signs Temp 97.3 F 10/13/24 10:54 Pulse 83 10/13/24 10:54 Resp 13 10/13/24 10:54 BP 138/78 10/13/24 10:54 Pulse Ox 98 10/13/24 10:54 Oxygen Delivery Method Room Air 10/13/24 10:54 BMI result Body Mass Index 27.5 Tobacco/Smoking Status: Tobacco use Status Tobacco use date assessed 10/13/24 10/13/24 10:36 Patient Tobacco Use Status Never used Tobacco 10/13/24 10:36 e-Cigarette/Vaping Use Never Used 10/13/24 10:36 PHQ-9: PHQ-9 Score PHQ-9: Total score 0 10/13/24 10:36 Depression Screening Interpretation: Negative Thrive Assessment: Date of Thrive Assessment Date Thrive assessed 10/13/24 10/13/24 10:36 Currently or been in a relationship where the following occur: I choose not to answer Coding Level of Care Code Est Pt Level 4 (73232) Complex EM visit Add On G2211 Diagnoses Preoperative clearance Z01.818 Additional Codes GLENDY-7 Assessment Billing - GLENDY-7 Assessment Tool: GLENDY-7 Assessment 51861 ([id number]) PHQ-9 - 44865 - PHQ-9 Billing: Yes ([id number]) Assessment & Plan Assessment & Plan (1) Preoperative clearance: Code(s): Z01.818 - Encounter for other preprocedural examination Plan: Medically cleared to proceed. Plan .
[2024-10-13 10:54] VITALS: BP 138/78; PULSE 83; RESP 13; TEMP 36.3; O2SAT 98; BMI 27.5
== END 2024-10-13 11:17 | disposition home or self-care (01) ==
LOC: HO.HMCFM 10:08
PROVIDERS: PCP Nurse Practitioner Family; Visit Provider Nurse Practitioner Family
DX: Z01.818 Encounter for other preprocedural examination (principal)

== ENCOUNTER → 2024-10-13 10:08 | Outpatient (BNVA) | payer MEDICARE, SELFPAY | PROVIDERS: PCP Nurse Practitioner Family; Visit Provider Nurse Practitioner Family | DX: Z01.818 Encounter for other preprocedural examination (principal) | CPT/HCPCS: 96127; 99212 ==

== ENCOUNTER 2024-12-19 12:11 | Outpatient (AMB) | payer MEDICARE, SELFPAY ==
[2024-12-19 12:30] VITALS: BP 128/72; PULSE 71; BMI 27.1
--- NOTE | 2024-12-19 12:30 | A.OFFVIS_ITS ---
Vital Signs 12/19/24 12:30 Height 6 ft 1 in Weight 205 lb 7.533 oz BMI 27.1 BP 128/72 Blood Pressure Location Rt brachial Position Sitting Pulse 71 Pulse Source Pulse Oximeter Intake Visit Reasons: 6m follow up Pipe Blanks Cut Off Saw Operator Required: No Allergies No Known Allergies Allergy (Verified 12/19/24 12:31) Medication List - Last Reconciled 12/19/24 by Isma Mcgowan MD apixaban (Eliquis) 5 mg PO BID atorvastatin 20 mg PO BEDTIME diltiazem HCl ER 360 mg PO DAILY losartan 25 mg PO DAILY metoprolol tartrate 25 mg PO BID HPI Comments Details: Mikey returns for follow-up regarding atrial fibrillation and hypertension. Overall, he states he is doing well. No specific cardiac symptoms. 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 Abscess, scrotum Atrial fibrillation with rapid ventricular response Incisional abscess Persistent atrial fibrillation Right inguinal hernia Surgical History No pertinent past surgical history Family History Mother Breast cancer Social History Household Members: Spouse Housing: House Do you presently have visiting nurse or other home services: No Alcohol intake: never Patient Tobacco Use Status: Never used Tobacco e-Cigarette/Vaping Use: Never Used service: No Current occupational status: retired Cognitive needs: No Hearing needs: No Vision needs: No Review of Systems ENT Reports dizziness Card Denies chest pain, Denies chest pain at rest, Denies chest pain with activity, Denies rapid heart rate, Denies pedal edema, Denies edema, Denies leg edema, Denies lightheadedness, Denies palpitations, Denies dyspnea, Denies dyspnea on exertion and Denies orthopnea Resp Denies cough, Denies dyspnea and Denies dyspnea on exertion GI Denies hematochezia and Denies change in stool character Musc Denies abnormal gait, Reports limited range of motion, Reports muscle cramps, Denies muscle weakness, Denies numbness, Denies radiating pain into limb, Denies stiffness and Denies tingling Neuro Denies abnormal gait, Reports dizziness, Denies numbness and Denies tingling Endo Denies palpitations Physical Exam Vital Signs: Last Vital Signs Pulse 71 12/19/24 12:30 BP 128/72 12/19/24 12:30 BMI result Body Mass Index 27.1 Const General: comfortable and no acute distress Orientation/consciousness: patient oriented x3 HEENT Other: Unremarkable Head: Yes normal to inspection Neck Neck: Yes normal visual inspection Chest Chest palpation & inspection: normal inspection of the chest Resp Auscultation: clear to auscultation bilaterally Cardio Palpation: normal PMI Heart sounds: S1 normal heart sound present, S2 normal heart sound present, no gallops, no murmurs and no rubs GI Palpation (GI): Soft to palpation Back/Spine/Pelvis Other: unremarkable Skin General skin exam: no rashes or lesions noted Neuro General: patient oriented x3 Extrem General: Yes normal to inspection Psych Mental Status: mental status grossly normal Assessment & Plan Assessment & Plan (1) Persistent atrial fibrillation: Code(s): I48.19 - Other persistent atrial fibrillation Category: Medical Plan: Continue diltiazem and metoprolol. Continue Eliquis. Check labs including CBC/BNP. (2) Essential hypertension: Code(s): I10 - Essential (primary) hypertension Category: Medical Plan: On losartan. Stable. Plan Discussion Notes I reviewed the reasons for regular blood work due to the patient?s use of anticoagulants, emphasizing the necessity of monitoring for potential side effects. I highlighted that there is no immediate need for intervention due to the absence of acute symptoms such as chest pain. We discussed that all ordered tests could be combined during the next scheduled visit. The patient was advised to continue following scheduled lab tests as directed by both cardiology and primary care, ensuring comprehensive monitoring. Patient was informed and verbally consented to the use of an ambient scribe for clinic note documentation during this visit. Orders: Orders Basic Metabolic Panel Today I48.19 - Other persistent atrial fibrillation Complete Blood Count no Diff Today I48.19 - Other persistent atrial fibrillation Patient Instructions: - Schedule your blood tests. - Monitor for any chest pain or pressure. Seek help if these occur. - Follow up with your doctor as advised. - Continue taking your medications as prescribed. Coding Level of Care Code Est Pt Level 4 (47051) Complex EM visit Add On G2211 Diagnoses Persistent atrial fibrillation I48.19 Essential hypertension I10
== END 2024-12-19 12:46 | disposition home or self-care (01) ==
LOC: HO.HCS 12:12
PROVIDERS: PCP Hospitalist; Visit Provider Internal Medicine
DX: I48.19 Other persistent atrial fibrillation (principal); I10 Essential (primary) hypertension
CPT/HCPCS: 99214; G2211

== ENCOUNTER → 2024-12-19 12:11 | Outpatient (BNVA) | payer MEDICARE, SELFPAY | PROVIDERS: PCP Hospitalist; Visit Provider Internal Medicine | DX: I48.19 Other persistent atrial fibrillation (principal); I10 Essential (primary) hypertension | CPT/HCPCS: 99212 ==

== ENCOUNTER 2025-01-30 07:36 | Outpatient (REF) | payer MEDICARE, SELFPAY ==
[2025-01-30 10:09] LABS: Hematocrit 43.4 % (42.0-52.0); Hemoglobin 14.7 g/dl (14.0-18.0); Mean Corpuscular HGB Conc 33.9 g/dl (31.0-36.0); Mean Corpuscular Hemoglobin 30.8 pg (27.0-33.0); Mean Corpuscular Volume 91.0 fL (80.0-98.0); NRBC Abs Auto 0.000 X10*3/uL (0.0-0.012); NRBC Pct Auto 0.0 /100WBC (0.0-0.2); Platelet Count 230 X10*3/uL (160-400); Red Blood Count 4.77 X10*6/uL (4.60-5.80); White Blood Count 7.7 X10*3/uL (4.8-10.8)
[2025-01-30 10:29] LABS: Anion Gap 11 (12-20); Blood Urea Nitrogen 15 mg/dL (9-16); Calcium 9.1 mg/dL (8.4-10.2); Carbon Dioxide 27 mmol/L (22-29); Chloride 107 mmol/L (96-108); Cholesterol 132 mg/dL (<200); Estimated Glomerular Filt Rate > 60; HDL Cholesterol 37 mg/dL (>40); Potassium 3.9 mmol/L (3.3-5.1); Sodium 141 mmol/L (135-145); Triglycerides 88 mg/dL (<150)
[2025-01-30 10:48] LABS: Prostate Specific Antigen 0.56 ng/mL (<0.05-4.0)
== END 2025-01-30 07:37 | disposition home or self-care (01) ==
LOC: HO.10HDL 07:36
PROVIDERS: Internal Medicine; Nurse Practitioner Family; Visit Provider Nurse Practitioner Family
DX: Z12.5 Encounter for screening for malignant neoplasm of prostate (principal); I48.19 Other persistent atrial fibrillation; E78.5 Hyperlipidemia, unspecified
CPT/HCPCS: 36415; 80048; 80061; 84153; 85027

== ENCOUNTER 2025-02-06 09:24 | Outpatient (AMB) | payer MEDICARE, SELFPAY ==
--- NOTE | 2025-02-06 09:31 | A.OFFVIS_ITS ---
Intake Visit Reasons: 1y/PSA/PVR(set) Intake Note: Patient presents today for follow up on: LUTS and PSA lab results PSA: 0.56 Urology Medication: None Antibiotic Allergies: None Blood Thinners: Eliquis PVR: 2ml's Flatbed Driver Required: No Accompanied by: Self / Same As Patient Allergies No Known Allergies Allergy (Verified 02/06/25 09:37) HPI Comments Details: Mikey is a 84-year-old male patient of Dr. Mckenna. He has a past medical history of AFib and Herndon's palsy. He presents to the office today for follow-up. Of note, patient with a history of right-sided scrotal abscess in the setting of a known large inguinal hernia. In discussion with the patient today he reports to be doing and feeling well. He denies any bothersome urinary issues or concerns. He has previously followed up with General surgery for his large inguinal hernia and has decided to undergo surveillance monitoring and does not wish to undergo elective surgical procedure at this time. In office urinalysis results reviewed with the patient today. PVR 2 mL. When asked patient denies urinary urgency, urinary frequency, incontinence, nocturia, hematuria, dysuria, foul smelling urine, changes to urinary stream, flank pain, fever, and or chills. He is happy with his current voiding parameters. Discussed large right inguinal hernia in the setting of voiding/urination. Patient reports that he is able to retract back his penis to be able to urinate and PVRs remain to be low. Recent PSA results reviewed with the patient today as noted and trended below. All questions were answered. He otherwise offers no other issues or concerns at this time. 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 Abscess, scrotum Atrial fibrillation with rapid ventricular response Incisional abscess Persistent atrial fibrillation Right inguinal hernia Surgical History No pertinent past surgical history Family History Mother Breast cancer Social History Household Members: Spouse Housing: House Do you presently have visiting nurse or other home services: No Alcohol intake: never Patient Tobacco Use Status: Never used Tobacco e-Cigarette/Vaping Use: Never Used service: No Current occupational status: retired Cognitive needs: No Hearing needs: No Vision needs: No Review of Systems Const All systems reviewed & are unremarkable except as noted in HPI and below Physical Exam Const General: cooperative, healthy appearing, comfortable, no acute distress, well developed, alert and awake Orientation/consciousness: patient oriented x3 Limitations: no limitations HEENT Head: Yes normal to inspection, Yes normocephalic and Yes atraumatic Ears: hearing grossly normal bilaterally Eyes General: appearance normal, both eyes and all related structures Neck Neck: Yes normal visual inspection and Yes trachea midline Chest Chest palpation & inspection: normal inspection of the chest Resp Effort & Inspection: normal respiratory effort and able to speak in complete sentences Cardio Rate: regular rate Male General Exam: Yes other (large right inginal hernia protruding over the pelvic area ) Penis: uncircumcised and other (able to retract penis however extremely large right inguinal hernia present) Scrotum: inguinal hernia (very large) on the right Neuro General: patient oriented x3 Extrem General: Yes normal to inspection Psych Appearance: grossly normal and well kempt Mental Status: mental status grossly normal Speech and movement: Normal speech and movement present and Clear speech present Affect: normal affect Attitude: cooperative Thought process: Normal thought process present Thought content: Normal thought content present Insight: Fair insight present (Psych) Judgement: Fair judgement present (Psych) Office Procedures Post Void Residual Post Residual Void Post Void Residual (PVR): 2 [id number]-[id number] Void Residual by ultrasound Results AMB Urinalysis, Automated UA Leukoctes 0 Tawana/uL Last Edit by JOSE Roldan on 02/06/25 09:46 UA Nitrite Last Edit by JOSE Roldan on 02/06/25 09:46 UA Urobilinogen 0.2 mg/dL Last Edit by Salmavic Heartjose manuel [facility] on 02/06/25 09:4 6 UA Protein 0 mg/dL Last Edit by Anisha Farooq, [facility] on 02/06/25 09:46 UA pH 7.0 Last Edit by Anisha Farooq, [facility] on 02/06/25 09:46 UA Blood 0 Dread/uL Last Edit by Anisha Farooq, [facility] on 02/06/25 09:46 UA Specific Taylor 1.010 Last Edit by Anisha Farooq, [facility] on 02/06/25 09: 46 UA Ketone Last Edit by Anisha Farooq, [facility] on 02/06/25 09:46 UA Bilirubin 0 mg/dL Last Edit by Anisha Farooq, [facility] on 02/06/25 09:46 UA Glucose 0 mg/dL Last Edit by Anisha Farooq [facility] on 02/06/25 09:46 Results Reviewed Results Reviewed: Laboratory Last Values Urine pH (Auto) 7.0 02/06/25 09:39 Specific Taylor (Auto) 1.010 02/06/25 09:39 Urine Protein (Auto) 0 mg/dL 02/06/25 09:39 Glucose (UA)(Auto) 0 mg/dL 02/06/25 09:39 Urine Blood (Auto) 0 Dread/uL 02/06/25 09:39 Urine Bilirubin (Auto) 0 mg/dL 02/06/25 09:39 Urine Urobilinogen (Auto) 0.2 mg/dL 02/06/25 09:39 Leukocyte Esterase (Auto) 0 Tawana/uL 02/06/25 09:39 Assessment & Plan Assessment & Plan (1) Lower urinary tract symptoms: Code(s): R39.9 - Unspecified symptoms and signs involving the genitourinary system Category: Medical Plan In office urinalysis results reviewed with the patient today; as noted above. PVR 2 mL. Recent PSA results with the patient today; as noted above. He currently denies any bothersome urinary issues or concerns. He reports be happy with current voiding parameters. Will continue with surveillance monitoring. Follow-up in 1 year with PSA and PVR; or sooner with any issues, concerns, and or questions. Orders: Orders AMB Urinalysis Automated Today Z13.9 - Encounter for screening, unspecified AMB Post Void Residual by ultrasound Today R39.9 - Unspecified symptoms and signs involving the genitourinary system Prostate Specific Antigen 1 Year R39.9 - Unspecified symptoms and signs involving the genitourinary system Patient Instructions: The patient had an opportunity to ask questions regarding the treatment plan. All questions were answered. Physical exam, labs, and imaging were discussed and reviewed in detail. As well as risks, benefits, and discussion of treatment choices. No major barriers to understanding were identified. The patient expressed understanding and agreement with the above treatment plan. The patient was made aware they should contact our office by phone for worsening of their current condition, the appearance of new symptoms, or with any questions or concerns. Compliance is encouraged with any medications and follow up testing that is ordered. It is a privilege to be allowed the opportunity to participate in? your urological care.? Again, if you have any questions or concerns If you have any questions or concerns please do not hesitate to contact me. The office is [phone]. This note is constructed using voice recognition software. While every effort has been made to ensure accuracy utility spray operator errors may have been included. Yours sincerely, SHAWN Jamison Coding Level of Care Code Est Pt Level 3 (79411) Complex EM visit Add On G2211 Diagnoses Lower urinary tract symptoms R39.9 CPT Codes Post Residual Void - PVR CPT Code: 96113-Cpsp Void Residual by ultrasound ([id number])
== END 2025-02-06 09:59 | disposition home or self-care (01) ==
LOC: HO.HUSH 09:25
PROVIDERS: PCP Hospitalist; Visit Provider Nurse Practitioner Family
DX: Z13.9 Encounter for screening, unspecified (principal); R39.9 Unspecified symptoms and signs involving the genitourinary system
CPT/HCPCS: 99213; G2211

== ENCOUNTER → 2025-02-06 09:24 | Outpatient (BNVA) | payer MEDICARE, SELFPAY | PROVIDERS: PCP Hospitalist; Visit Provider Nurse Practitioner Family | DX: R39.9 Unspecified symptoms and signs involving the genitourinary system (principal); K40.90 Unilateral inguinal hernia, without obstruction or gangrene, not specified as recurrent; Z79.01 Long term (current) use of anticoagulants | CPT/HCPCS: 51798; 81003; 99212 ==

== ENCOUNTER 2025-02-14 12:05 | Outpatient (AMB) | payer MEDICARE, SELFPAY ==
--- NOTE | 2025-02-14 12:16 | A.OFFPC_ITS ---
Vital Signs 02/14/25 12:19 02/14/25 12:51 Height 6 ft 1 in Weight 210 lb BMI 27.7 BP 152/80 H 158/70 H Blood Pressure Location Rt brachial Rt brachial Position Sitting Sitting Respiration 13 Pulse 66 Pulse Source Pulse Oximeter Temp 96.9 F Temp Source Oral Pulse Oximetry (%) 99 Oxygen Delivery Method Room Air Intake Visit Reasons: 6 mo 30 min routine fu lipids/htn Intake Note: Routine follow up and htn. Yarn Worker Required: No Allergies No Known Allergies Allergy (Verified 02/14/25 12:32) Medication List - Last Reconciled 02/14/25 by Luz Maria Saha, MANAGER BILINGUAL-BC apixaban (Eliquis) 5 mg PO BID atorvastatin 20 mg PO BEDTIME diltiazem HCl ER 360 mg PO DAILY losartan 25 mg PO DAILY metoprolol tartrate 25 mg PO BID Tobacco use date assessed: 02/14/25 Fall risk assessment: No Falls in past year Last assessed Fall Risk: 02/14/25 Dental Screening Dental Screen Date: 02/14/25 Did you have a dental visit in the last 12 months?: Yes Did you have a dental problem in the last 6 months where you did not have access to dental care?: No Was dental information given to patient?: Patient has dentist HPI HPI Comments History of Present Illness Details 84-year-old male with persistent AFib wi th secondary hypercoagulable state, LVH, hypertension, Large right inguinal hernia, liver cysts (CT 01/2022 ABD Multiple hypoattenuating lesions are seen in the liver, the largest of which are consistent with cysts), Diverticulosis of the distal colon without diverticulitis, DJD of spine and hips, Minimal centric nonocclusive predominantly noncalcific atherosclerosis within the left and right carotid bulbs without ulceration, 1.0 cm nodule is present in the right lobe of the thyroid (CTA head/neck 05/2024), 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 - History of persistent atrial fibrillat ion and hypercoagulable state. - Diagnosed with left ventricular hypert rophy and hypertension; managing with Eliquis, Cardizem, losartan, and metoprolol & Cardiology. - HLD on Statin - Takes BP at home a few times per week and at goal. Elevated today x 2. Took meds. Denies sx. - Persistence of facial droop noted s/p bells palsy, underwent ectropion repair R lower lid which greatly helped his vision. Doing more driving and things around the house. - Feels well - No acute distress; denies recent falls or edema. Review of Systems - Cardiovascular: Denies shortness of br eath, reports generally stable blood pressure with occasional elevation; monitoring at home recommended. - Neurological: Reports persistent facia l drooping on the right side. - Musculoskeletal: Denies falls, confirm s no swelling in legs. - Vision: Reports improved vision post-s urgery with recent tests showing 20/20 vision. - General: Reports feeling good overall, denies new issues or concerns. Exam General: Well developed, well nourished, in no acute distress. Appears stated age. Eyes: Pupils are equal, round and reactive to light and accommodation. Conjunctivae are clear. Lungs: Clear to auscultation bilaterally. No rales, rhonchi or wheeze noted. Good air flow in all almeida. Heart: Irregularly irregular . Pulses: Peripheral pulses are equal and palpable bilaterally. Hairless, skin intact Extremities: No clubbing, cyanosis nor edema is noted. Neurologic: Gait and station normal. Malone Palsy on R Skin: No rashes, ulcers, or lesions noted. Turgor is good. Skin color is good. Hair and nails are without abnormalities. Psych: Normal eye contact, affect and mood appropriate, and normal interactions. Patient is alert and appropriate to context. Results - Labs: See below. Discussion Notes During the visit, I discussed with the patient that his chronic conditions, including atrial fibrillation and hypertension, require ongoing management. The importance of monitoring blood pressure at home was emphasized, with an option to return for a nurse visit to verify his home blood pressure device. All medications were reviewed for dosage and refills were managed accordingly. Follow-up appointments include a non-fee nurse check for blood pressure in 2-3 weeks and an annual wellness visit in six months. The patient consented to the plan and was agreeable to the proposed follow-up schedule. Assessment and Plan 1. Atrial Fibrillation - Continue Apixaban, Metoprolol. Labs st able. 2. Hypertension - Home BP monitoring. Nurse visit josr casarez 3. HLD cont statin RTO 2 WEEKS FOR NN BP RECHECK AND MACHINE CALIBRATION AND THEN 6 MO FOR AWV, SOONER PRN Patient Instructions - Monitor your blood pressure at home re nataliialarly. - If blood pressure remains high, notify us or bring your machine for calibration. - Take all prescribed medications daily. - Keep follow-up appointments as sched ed. - Notify us if you experience any new sy mptoms. Consent Patient was informed and verbally consented to the use of an ambient scribe for clinic note documentation during this visit. Total time spent caring for the patient today was 30 minutes. This includes time spent before the visit reviewing the chart, time spent during the visit, and time spent after the visit on documentation, reviewing laboratory results, diagnostic imaging, medications, performing a medically necessary evaluation, counseling on diagnoses, care coordination, ordering appropriate tests, ordering appropriate medications, review of tests performed by other providers, reporting test results with the patient, communication with other healthcare providers. 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 Abscess, scrotum Atrial fibrillation with rapid ventricular response Incisional abscess Persistent atrial fibrillation Right inguinal hernia Surgical History No pertinent past surgical history Family History Mother Breast cancer Social History Household Members: Spouse Housing: House Do you presently have visiting nurse or other home services: No Alcohol intake: never Patient Tobacco Use Status: Never used Tobacco e-Cigarette/Vaping Use: Never Used service: No Current occupational status: retired Cognitive needs: No Hearing needs: No Vision needs: No Questionnaire PHQ-9 Over the last 2 weeks, how often have you been bothered by any of the following problems? 1. Little interest or pleasure in doing things: not at all 2. Feeling down, depressed, or hopeless: not at all 3. Trouble falling or staying asleep, or sleeping too much: not at all 4. Feeling tired or having little energy: not at all 5. Poor appetite or overeating: not at all 6. Feeling bad about yourself - or that you are a failure or have let yourself or your family down: not at all 7. Trouble concentrating on things, such as reading the newspaper or watching t elevision: not at all 8. Moving or speaking so slowly that other people could have noticed. Or the opposite - being so fidgety or restless that you have been moving around a lot more than usual: not at all 9. Thoughts that you would be better off or of hurting yourself in some way: not at all Total score: 0 Depression Screening Interpretation: Negative Depression Screening Done: Yes 17451 - PHQ-9 Billing: Yes Source: Developed by Drs. Kemar Dickerson, Anna Phelan, Kike Bhat and colleagues, with an educational stefan from [employer]. Thrive Questionnaire Date Thrive assessed: 02/14/25 I am a: Patient What is your living situation today?: I have a steady place to live Within the past 12 months, did the food you bought not last and you didn't have the money to get more?: Never true Within the past 12 months, did you worry whether your food would run out before you got money to buy more?: Never true Do you have trouble paying for medicines?: No Do you have trouble getting transportation to medical appointments?: No Do you have trouble paying your heating and electricity bill?: No Do you have trouble taking care of your child, family member or friend?: No Do you have trouble with day-to-day activities such as bathing, preparing meals, shopping, managing finances, etc.?: No Are you currently unemployed and looking for a job?: No Are you interested in more education?: No Please select the resources that you would like help with: None Currently or been in a relationship where the following occur: I choose not to answer THRIVE Score: 0 AUDIT C Alcohol Use Questionnaire (AUDIT-C) 1. How often do you have a drink containing alcohol?: Never 3. How often do you have six or more drinks on one occasion?: Never Total Score: 0 Score Reviewed/Action Taken: Yes GLENDY-7 AMB Questionnaire GLENDY-7 Date GLENDY - 7 assessed: 02/14/25 Feeling nervous, anxious, or on edge: 0 = Not at all Not being able to stop or control worryin = Not at all Worrying too much about different things: 0 = Not at all Trouble relaxin = Not at all Being so restless that it is hard to sit still: 0 = Not at all Becoming easily annoyed or irritable: 0 = Not at all Feeling afraid as if something awful might happen: 0 = Not at all Total GLENDY-7 score (0-4 normal; 5-9 mild; 10-14 moderate; 15-21 severe): 0 Source: Developed by Drs. Kemar Dickerson, Anna Phelan, Kike Bhat and colleagues, with an educational stefan from [employer]. GLENDY-7 Assessment Billing GLENDY-7 Assessment Tool: GLENDY-7 Assessment 72881 Physical exam (Primary Care) Vital Signs: Last Vital Signs Temp 96.9 F 02/14/25 12:19 Pulse 66 02/14/25 12:19 Resp 13 02/14/25 12:19 BP 152/80 H 02/14/25 12:19 Pulse Ox 99 02/14/25 12:19 Oxygen Delivery Method Room Air 02/14/25 12:19 BMI result Body Mass Index 27.7 Tobacco/Smoking Status: Tobacco use Status Tobacco use date assessed 02/14/25 02/14/25 12:19 Patient Tobacco Use Status Never used Tobacco 02/14/25 12:19 e-Cigarette/Vaping Use Never Used 02/14/25 12:19 PHQ-9: PHQ-9 Score PHQ-9: Total score 0 02/14/25 12:19 Depression Screening Interpretation: Negative Thrive Assessment: Date of Thrive Assessment Date Thrive assessed 02/14/25 02/14/25 12:19 Currently or been in a relationship where the following occur: I choose not to answer Results Reviewed Results Reviewed: RUN: 02/14/25 1234 PAGE 1 [facility] [address] [place] [id number] Quality Assurance Manager: Niall Ardon M.D. Specimen Inquiry Name: Mikey Mercado Age/Sex: 84/M : 1940 Unit#: [id number] Attend Dr: Luz Maria Saha MANAGER BILINGUAL-BC Re01/30/25 Status: DEP REF Location: [address] Disch: SPEC : [id number] SVETLANA: 01/30/25 STATUS: COMP REQ : [id number] RECD: 01/30/25 [facility] DR: Luz Maria Saha [facility] COMP: 01/30/25 ENTERED: 01/30/25 [facility] DR: Isma Mcgowan MD ORDERED: BMP, Lipid Panel Test Result Flag Reference Sodium 141 135-145 mmol/L Potassium 3.9 3.3-5.1 mmol/L CL 107 96-108 mmol/L CO2 27 22-29 mmol/L Gap 11 L 12-20 BUN 15 9-16 mg/dL Creat 1.16 0.5-1.4 mg/dL eGFR > 60 Chronic Kidney Disease: Estimated GFR < 60 mL/min/1. 73m2 Severe Kidney Disease: Estimated GFR < 15 mL/min/1.73m2 Glucose, Random 98 60-115 mg/dL CA 9.1 # 8.4-10.2 mg/dL Triglyceride 88 <150 mg/dL Desirable Triglyceride: less than 150 mg/dL Borderline High Triglyceride 150-199 mg/dL High Triglyceride: 200-499 mg/dL Very High Triglyceride: greater than or equal to 5OO mg/dL Cholesterol 132 <200 mg/dL Desirable Cholesterol: less than 200 mg/dL Borderline High Cholesterol: 200-239 mg/dL High Cholesterol: greater than 239 mg/dL LDL Calculated 78 <100 mg/dL Desirable LDL: less than 100 mg/dL Near Optimal/Above Optimal LDL: 110-129 mg/dL Borderline High LDL: 130-159 mg/dL High LDL: 160-189 mg/dL Very High LDL: greater than or equal to 190 mg/dL HDL 37 L >40 mg/dL Desirable HDL: greater than 40 mg/dL Note: This HDL assay may give artificially low results in patients with liver disease. END OF REPORT Coding Level of Care Code Est Pt Level 4 (55728) Complex EM visit Add On G2211 Diagnoses Essential hypertension I10 Coronary artery disease involving [place] coronary artery of [place] heart without angina pectoris I25.10 Coronary Disease-Associated Artery/Lesion type: [place] artery [place] vs. transplanted heart: [place] heart Associated angina: without angina Persistent atrial fibrillation I48.19 Mixed hyperlipidemia E78.2 Hyperlipidemia type: mixed hyperlipidemia Secondary hypercoagulability disorder D68.69 Additional Codes GLENDY-7 Assessment Billing - GLENDY-7 Assessment Tool: GLENDY-7 Assessment 21590 ([id number]) PHQ-9 - 40413 - PHQ-9 Billing: Yes ([id number]) Assessment & Plan Assessment & Plan (1) Essential hypertension: Code(s): I10 - Essential (primary) hypertension Category: Medical (2) CAD (coronary artery disease): Comment: Minimal centric nonocclusive predominantly noncalcific atherosclerosis within the left and right carotid bulbs without ulceration CT head/neck 05/2024 Code(s): I25.10 - Atherosclerotic heart disease of [place] coronary artery without angina pectoris Category: Medical Qualifiers: Coronary Disease-Associated Artery/Lesion type: [place] artery [place] vs. transplanted heart: [place] heart Associated angina: without angina Qualified Code(s): I25.10 - Atherosclerotic heart disease of [place] coronary artery without angina pectoris (3) Persistent atrial fibrillation: Code(s): I48.19 - Other persistent atrial fibrillation Category: Medical (4) Hyperlipidemia: Code(s): E78.5 - Hyperlipidemia, unspecified Category: Medical Qualifiers: Hyperlipidemia type: mixed hyperlipidemia Qualified Code(s): E78.2 - Mixed hyperlipidemia (5) Secondary hypercoagulability disorder: Comment: d/t afib, on eliquis Code(s): D68.69 - Other thrombophilia Category: Medical Plan . Orders: Orders TSH reflex Free T4 6 Months E78.2 - Mixed hyperlipidemia, I10 - Essential (primary) hypertension, I25.10 - Atherosclerotic heart disease of [place] coronary artery without angina pectoris Lipid Panel 6 Months E78.2 - Mixed hyperlipidemia, I10 - Essential (primary) hypertension, I25.10 - Atherosclerotic heart disease of [place] coronary artery without angina pectoris Comprehensive Met. Panel 6 Months E78.2 - Mixed hyperlipidemia, I10 - Essential (primary) hypertension, I25.10 - Atherosclerotic heart disease of [place] coronary artery without angina pectoris Microalbumin, Random (w Creat) 6 Months E78.2 - Mixed hyperlipidemia, I10 - Essential (primary) hypertension, I25.10 - Atherosclerotic heart disease of [place] coronary artery without angina pectoris Vitamin B12 and Folate 6 Months E78.2 - Mixed hyperlipidemia, I10 - Essential (primary) hypertension, I25.10 - Atherosclerotic heart disease of [place] coronary artery without angina pectoris Complete Blood Count no Diff 6 Months E78.2 - Mixed hyperlipidemia, I10 - Essential (primary) hypertension, I25.10 - Atherosclerotic heart disease of [place] coronary artery without angina pectoris Vitamin D 25-OH Total 6 Months E78.2 - Mixed hyperlipidemia, I10 - Essential (primary) hypertension, I25.10 - Atherosclerotic heart disease of [place] coronary artery without angina pectoris Medications: Refilled diltiazem HCl ER 360 mg PO DAILY 90 caps 3RF metoprolol tartrate 25 mg PO BID 180 tabs 3RF
[2025-02-14 12:19] VITALS: BP 152/80; PULSE 66; RESP 13; TEMP 36.1; O2SAT 99; BMI 27.7
--- OUTSIDE RECORDS SUMMARY | 2025-02-14 12:44 | XMS_ITS | Clinical Summary ---
Author Organization [facility] Address [address] [place] [phone] Phone Care Team Providers Care Anatomic Pathology Assistant Name Role Phone Pcp, Unknown Primary Care Provider Unavailabl e Allergies No known active allergies Medications ELIQUIS 5 mg tablet Take 1 tablet by mouth 2 (two) times a day. 03/05/2023 Active dilTIAZem (CARDIZEM CD) 360 MG 24 hr capsule Take 360 mg by mouth every morning. 02/03/2023 Active metoprolol tartrate (LOPRESSOR) 25 MG tablet Take 1 tablet by mouth 2 (two) times a day. 03/08/2023 Active losartan (COZAAR) 25 MG tablet TAKE 1 TABLET BY MOUTH DAILY AROUND EVENING MEAL 11/25/2023 Active Active Problems No known active problems Immunizations No known immunizations Social History Tobacco Use Types Packs/Day Years Used Date Smoking Tobacco: Never Smokeless Tobacco: Never Tobacco Cessation:Counseling Given: Not Answered Education Answer Date Recorded Are you interested in more education? Not on mayra e 04/16/2023 Are you concerned about learning? Not on file 04/16/2023 No 04/16/2023 No 04/16/2023 Digital Access Answer Date Recorded No 04/16/2023 No 04/16/2023 Reliable internet access at home? Not on file 04/16/2023 Device with a working camera? Not on file Sex and Gender Information Value Date Recorded Sex Assigned at Not on file Legal Sex Male 10:12 PM EDT Gender Identity Not on file Sexual Orientation Not on file Last Filed Vital Signs Vital Sign Reading Time Taken Comments Blood Pressure 148/80 12/11/2023 9:40 AM EDT Pulse 94 12/11/2023 9:33 AM EDT Temperature 36.5 C (97.7 F) 12/11/2023 9:33 AM EDT Respiratory Rate 17 12/11/2023 9:33 AM EDT Oxygen Saturation 97% 12/11/2023 9:33 AM EDT Inhaled Oxygen Concentration - - Weight 104.3 kg (230 lb) 12/11/2023 9:33 AM EDT Height 185.4 cm (6' 1 ) 12/11/2023 9:33 AM EDT Body Mass Index 30.34 12/11/2023 9:33 AM EDT Plan of Treatment Health Maintenance Due Date Last Done Comments Adult Td,Tdap Booster 1941 CREATININE LEVEL 1941 POTASSIUM LEVEL 1941 DEPRESSION SCREENING 1953 PNEUMOCOCCAL VACCINES (50+ years) (1 of 1 - PCV) 1991 ZOSTER VACCINES (1 of 2) 1991 RSV VACCINE (1 - 1-dose 75+ series) 2016 COVID-19 VACCINE ( season) 2024 05/28/2022, 04/19/2021, 09/24/2020, Additional history exists HEPATITIS A VACCINES Aged Out No long er eligible based on patient's age to complete this topic HIB VACCINES Aged Out No longer eligi ble based on patient's age to complete this topic MENINGOCOCCAL VACCINES (ACWY) Aged Out No longer eligible based on patient's age to complete this topic MENINGOCOCCAL VACCINES (B) Aged Out N o longer eligible based on patient's age to complete this topic Medical Devices Not on file Insurance MEDICARE PART A & B [facility] MEDEX SUPPLEMENT MEDICARE PART A & B Member Subscriber Plan / Payer ( fective 2006-Present) Name:Sukhi Mercado Member ID:[id number] Relation to Subscriber:Self Name:Sukhi Mercado Subscriber ID:[id number] Payer ID:[id number] Group ID:Not on file Type:Medicare Address: [facility] [employer] [facility] [address] [place] [phone] [facility] MEDEX SUPPLEMENT MEDICARE PART A & B [employer] MEDEX SUPPLEMENT MEDICARE PART A & B [employer] MEDEX SUPPLEMENT MEDICARE PART A & B [employer] MEDEX SUPPLEMENT MEDICARE PART A & B [employer] MEDEX SUPPLEMENT MEDICARE PART A & B [employer] MEDEX SUPPLEMENT MEDICARE PART A & B [employer] MEDEX SUPPLEMENT MEDICARE PART A & B [employer] MEDEX SUPPLEMENT Care Teams Anatomic Pathology Assistant Relationship Specialty Start Date End Date Pcp, Unknown PCP - General 04/16/23 Additional Source Comments The information contained in this document represents components of the legal health record. It is not the complete legal health record.[facility]
[2025-02-14 12:51] VITALS: BP 158/70
== END 2025-02-14 12:53 | disposition home or self-care (01) ==
LOC: HO.HMCFM 12:06
PROVIDERS: PCP Nurse Practitioner Family; Visit Provider Nurse Practitioner Family
DX: I10 Essential (primary) hypertension (principal); I25.10 Atherosclerotic heart disease of native coronary artery without angina pectoris; I48.19 Other persistent atrial fibrillation; E78.2 Mixed hyperlipidemia; D68.69 Other thrombophilia

== ENCOUNTER → 2025-02-14 12:05 | Outpatient (BNVA) | payer MEDICARE, SELFPAY | PROVIDERS: PCP Nurse Practitioner Family; Visit Provider Nurse Practitioner Family | DX: I10 Essential (primary) hypertension (principal); I25.10 Atherosclerotic heart disease of native coronary artery without angina pectoris; I48.19 Other persistent atrial fibrillation; E78.2 Mixed hyperlipidemia; D68.69 Other thrombophilia | CPT/HCPCS: 96127; 99212 ==

== ENCOUNTER 2025-06-20 12:08 | Outpatient (AMB) | payer MEDICARE, SELFPAY ==
[2025-06-20 12:32] VITALS: BP 130/68; PULSE 61; BMI 28.8
--- NOTE | 2025-06-20 12:32 | MHC.OFFVIS ---
Vital Signs 06/20/25 12:32 Height 6 ft 1 in Weight 218 lb 4.122 oz BMI 28.8 BP 130/68 Blood Pressure Location Lt brachial Position Sitting Pulse 61 Pulse Source Monitor Intake Visit Reasons: 6 mth f/up Allergies No Known Allergies Allergy (Verified 02/14/25 12:32) Medication List - Last Reconciled 06/20/25 by Isma Mcgowan MD apixaban (Eliquis) 5 mg PO BID atorvastatin 20 mg PO BEDTIME diltiazem HCl ER 360 mg PO DAILY losartan 25 mg PO QPM metoprolol tartrate 25 mg PO BID HPI Comments Details: Mikey returns for follow-up regarding atrial fibrillation and hypertension. Overall, he states he is doing well. No specific cardiac symptoms. 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 Abscess, scrotum Atrial fibrillation with rapid ventricular response Incisional abscess Persistent atrial fibrillation Right inguinal hernia Surgical History No pertinent past surgical history Family History Mother Breast cancer Social History Household Members: Spouse Housing: House Do you presently have visiting nurse or other home services: No Alcohol intake: never Patient Tobacco Use Status: Never used Tobacco e-Cigarette/Vaping Use: Never Used service: No Current occupational status: retired Cognitive needs: No Hearing needs: No Vision needs: No Review of Systems Const Denies weakness ENT Denies dizziness Card Denies chest pain, Denies chest pain with activity, Denies syncope, Denies rapid heart rate, Denies pedal edema, Denies edema, Denies leg edema, Denies lightheadedness, Denies palpitations, Denies dyspnea, Denies dyspnea on exertion and Denies orthopnea Resp Denies cough, Denies dyspnea and Denies dyspnea on exertion GI Denies hematochezia and Denies change in stool character Musc Denies abnormal gait, Denies muscle cramps, Denies muscle weakness, Denies numbness, Denies radiating pain into limb and Denies tingling Neuro Denies abnormal gait, Denies dizziness, Denies syncope, Denies numbness, Denies tingling and Denies weakness Endo Denies palpitations Physical Exam Vital Signs: Last Vital Signs Pulse 61 06/20/25 12:32 BP 130/68 06/20/25 12:32 BMI result Body Mass Index 28.8 Const General: comfortable and no acute distress Orientation/consciousness: patient oriented x3 HEENT Other: Unremarkable Head: Yes normal to inspection Neck Neck: Yes normal visual inspection Chest Chest palpation & inspection: normal inspection of the chest Resp Auscultation: clear to auscultation bilaterally Cardio Palpation: normal PMI Heart sounds: S1 normal heart sound present, S2 normal heart sound present, no gallops, no murmurs and no rubs GI Palpation (GI): Soft to palpation Back/Spine/Pelvis Other: unremarkable Skin General skin exam: no rashes or lesions noted Neuro General: patient oriented x3 Extrem General: Yes normal to inspection Psych Mental Status: mental status grossly normal Office Procedures EKG Details: EKG with atrial fibrillation rate of 61/Min; incomplete right bundle-branch block pattern; rightward axis; nonspecific ST-T changes. [id number], Complete Assessment & Plan Assessment & Plan (1) Persistent atrial fibrillation: Code(s): I48.19 - Other persistent atrial fibrillation Category: Medical Plan: Continue diltiazem and metoprolol. Continue Eliquis. Check labs including CBC/BNP. (2) Essential hypertension: Code(s): I10 - Essential (primary) hypertension Category: Medical Plan: On losartan. Stable. Plan Discussion Notes I advised the patient that the atrial fibrillation appears to be well-controlled with the current medication regimen, which includes Eliquis, diltiazem, and metoprolol. Given that the patient is asymptomatic and without complaints, I see no need to change the current management. We will plan to follow up in one year, but I have instructed the patient to call if any problems arise before then. Patient was informed and verbally consented to the use of an ambient scribe for clinic note documentation during this visit. Patient Instructions: - Continue taking your current medications, which include Eliquis, diltiazem, and metoprolol. - We will see you back for a follow-up visit in one year. - If you have any problems before your next appointment, please call the office. Coding Level of Care Code Est Pt Level 4 (53419) Complex visit Add On G2211 Diagnoses Persistent atrial fibrillation I48.19 Essential hypertension I10 CPT Codes EKG - CPT: 54825-[id number], Complete ([id number])
--- OUTSIDE RECORDS SUMMARY | 2025-06-20 15:12 | XMS_ITS | Clinical Summary ---
Author Organization [facility] Address [address] [place] [phone] Phone Care Team Providers Care Drift Miner Name Role Phone Pcp, Unknown Primary Care [...] VACCINE (1 - 1-dose 75+ series) 2016 INFLUENZA VACCINE (#1) 2025 05/28/2022 COVID-19 VACCINE ( season) 2025 05/28/2022, 04/19/2021, 09/24/2020, Additional history exists HEPATITIS [...] file Insurance MEDICARE PART A & B [place] MEDEX SUPPLEMENT MEDICARE PART A & B [place] MEDEX SUPPLEMENT MEDICARE PART A & B [employer] MEDEX SUPPLEMENT MEDICARE PART A & B [employer] MEDEX SUPPLEMENT MEDICARE PART A & B [employer] MEDEX SUPPLEMENT MEDICARE PART A & B [employer] MEDEX SUPPLEMENT MEDICARE PART A & B [place] MEDEX SUPPLEMENT MEDICARE PART A & B [place] MEDEX SUPPLEMENT MEDICARE PART A & B [employer] MEDEX SUPPLEMENT Care Teams Drift Miner Relationship Specialty Start Date End Date Pcp, Unknown PCP - General 04/16/23 Additional Source Comments The information contained in this document represents components of the legal health record. It is not the complete legal health record.[facility]
== END 2025-06-20 12:50 | disposition home or self-care (01) ==
LOC: HO.HCS 12:09
PROVIDERS: PCP Hospitalist; Visit Provider Internal Medicine
DX: I48.19 Other persistent atrial fibrillation (principal); I10 Essential (primary) hypertension
CPT/HCPCS: 93010; 99214; G2211

== ENCOUNTER → 2025-06-20 12:08 | Outpatient (BNVA) | payer MEDICARE, SELFPAY | PROVIDERS: PCP Hospitalist; Visit Provider Internal Medicine | DX: I48.19 Other persistent atrial fibrillation (principal); Z79.01 Long term (current) use of anticoagulants; I10 Essential (primary) hypertension | CPT/HCPCS: 93005; 99212 ==